=== PATIENT | female | born 2005 | race Caucasian/White ===

== ENCOUNTER 2023-07-11 12:20 | Outpatient (OUT) | payer OTHER, SELFPAY ==
--- NOTE | 2023-07-11 12:50 | XR_ITS ---
The [address] [address] Patient Name: ARABELLA KNOTT MRN: [id number] date: 2005 Sex: F Assigned Patient Location: [facility] Current Patient Location: Accession/Order Number: [id number] Exam Date: 07/11/2023 12:40 Report Date: 07/13/2023 06:22 At the request of: JUAN F THRASHER Procedure: XR hip LT 2V w/ pelvis PROCEDURE: XR hip LT 2V w/ pelvis HISTORY: pain left hip M25.552, Generalized articular hypermobility COMPARISON: None. FINDINGS: BONES:No fracture, acute abnormality, or significant arthropathy. SOFT TISSUES:No visible soft tissue swelling. EFFUSION:None visible. OTHER: Negative. XR/XR hip LT 2V w/ pelvis IMPRESSION: 1. No acute bone abnormality or appreciable degenerative changes. Electronically authenticated by: SANDRA ROSSI Date: 07/13/2023 06:22
== END 2023-07-11 12:21 | disposition home or self-care (01) ==
LOC: RAD 12:27
PROVIDERS: PCP Family Medicine; Visit Provider Nurse Practitioner Family
DX: M25.552 Pain in left hip (principal); M24.80 Other specific joint derangements of unspecified joint, not elsewhere classified
CPT/HCPCS: 73502

== ENCOUNTER 2023-07-19 16:56 | Outpatient (RCR) | payer OTHER, SELFPAY | END 2023-07-20 09:27 | disposition home or self-care (01) | LOC: PT 16:56 | PROVIDERS: PCP Family Medicine; Visit Provider Nurse Practitioner Family | DX: M24.80 Other specific joint derangements of unspecified joint, not elsewhere classified (principal); M25.552 Pain in left hip | CPT/HCPCS: 97162 ==

== ENCOUNTER 2023-11-15 09:35 | Outpatient (OUT) | payer OTHER, SELFPAY ==
--- OUTSIDE RECORDS SUMMARY | 2023-11-15 09:43 | XMS_ITS | CCD ---
Author Organization [facility] Care Team Providers Care Press Reader Name Role Phone Melanie Major Unavailable Allyssa De Guzman Unavailable Allyssa De Guzman Unavailable Unavailable Unavailable DR ALLYSSA DE GUZMAN Attending Unavailable DODGE, DR TATE Valerio Consulting Unavailable DE GUZMAN, DR ALLYSSA Hernandez Primary Care Unavailable DE GUZMAN, DR ALLYSSA Hernandez Admitting Unavailable DE GUZMAN, DR ALLYSSA Hernandez Consulting Unavailable MAURILIO JAMISON Attending Unavailable MAURILIO JAMISON Admitting Unavailable DE GUZMAN, DR ALLYSSA Hernandez Primary Care Unavailable SHAHEEN, MAURILIO Admitting Unavailable ZIEBER, DR SANDRA Stephens Consulting Unavailable DE GUZMAN, DR ALLYSSA Hernandez Primary Care Unavailable MAURILIO JAMISON Attending Unavailable MUARILIO JAMISON Consulting Unavailable DE GUZMAN, DR ALLYSSA Hernandez Attending Unavailable DE GUZMAN, DR ALLYSSA Hernandez Consulting Unavailable DE GUZMAN, DR ALLYSSA Hernandez Primary Care Unavailable DE GUZMAN, DR ALLYSSA Hernandez Admitting Unavailable MISC, DR ALEXIS Admitting Unavailable DE GUZMAN, DR ALLYSSA Hernandez Primary Care Unavailable MISC, DR ALEXIS Attending Unavailable MISC, DR ALEXIS Consulting Unavailable MD Allyssa De Guzman Primary Care Provider [phone] MD Edin Michaels Attending Provider MD Kylie Marc Referring Provider Edin Michaels Admitting Unavailable Edin Michaels Attending Unavailable Kylie Marc Referring Unavailable Allyssa De Guzman Primary Care Unavailable Monico, Dr. Espinal Attending Unavaila mehrdad De Guzman, Dr. Allyssa Taylor Primary Care UnaMD EDIN Romero Attending Unavailable Margarita, Dr. Allyssa Taylor Primary Care MD EDIN Barrera Referring Unavailable MD EDIN MICHAELS Referring Unavailable Margarita, Dr. Allyssa Taylor Primary Care MD EDIN Barrera Attending Unavailable MD EDIN MICHAELS Referring Unavailable MD EDIN MICHAELS Attending Unavailable Margarita, Dr. Allyssa Taylor Primary Care MD EDIN Barrera Referring Unavailable MD EDIN MICHAELS Attending Unavailable Margarita, Dr. Allyssa Taylor Primary Care MD EDIN Barrera Referring Unavailable De Guzman, Dr. Allyssa Talyor Primary Care MD EDIN Barrera Attending Unavailable Allyssa De Guzman MD Primary Care Provider Unavailable Allyssa De Guzman MD Primary Care Provider Audra Fabian MD Unavailable Edin Michaels MD Unavailable GIULIANO BAUMANN Attending Unavailable XAVIER HOOVER Attending Unavailable XAVIER HOOVER Referring Unavailable Allyssa De Guzman MD Primary Care Provider Audra Fabian MD Unavailable AUDRA FABIAN Attending Unavailable ALLYSSA DE GUZMAN Primary Care Unavailable AUDRA FABIAN Referring Unavailable ALLYSSA DE GUZAMN Primary Care Unavailable AUDRA FABIAN Attending Unavailable AUDRA FABIAN Referring Unavailable ALLYSSA DE GUZMAN Primary Care Unavailable AUDRA FABIAN Attending Unavailable ALLYSSA DE GUZMAN Primary Care Unavailable Allergies Allergy Classification Reported Allergen(s) Allergy Type Date of Onset Reaction(s) Facility (6 sources) cariprazine; Translations: [CARIPRAZINE] Drug Allergy 03-06-2023 Other [facility] Medications Current Medications Medication Drug Class(es) Dates Sig (Normalized) Sig (Original) acebutolol 200 mg oral capsule (20 sources) beta-Adrenergic Frank Start: 03-06-2023 End: 03-05-2024 take 1 capsule by mouth twice daily acebutolol (Sectral) 200 mg capsule Indications: Essential hypertension Take 1 capsule (200 mg) by mouth 2 times a day. 180 capsule 3 03/06/2023 03/05/2024 Active Start: 09-30-2022 take 1 capsule by [facility] once daily Acebutolol HCl - 200 MG Oral Capsule TAKE 1 CAPSULE EVERY 12 HOURS DAILY. Quantity: 60 Refills: 11 Ordered: 30-Sep-2022 Edin Michaels MD Start : 30-Sep-2022 Active new mg Start: 06-06-2022 take 400 mg by mouth twice daily Acebutolol Active 400 MG PO Twice daily August 17, 2022 12:00am take 1 capsule by mo [facility] every twenty-four hours Acebutolol HCl 400 MG 1 capsule Orally Once a day Active End: 03-06-2023 acebutolol (Sectral) 400 mg capsule Take 200 mg by mouth once daily. 0 03/06/2023 Discontinued (Therapy completed) 24 hr amphetamine aspartate 3.75 mg / amphetamine sulfate 3.75 mg / dextroamphetamine saccharate 3.75 mg / dextroamphetamine sulfate 3.75 mg extended release oral capsule (20 sources) Central Nervous System Stimulant Start: 08-17-2022 take 1 tablet by mouth once daily Dextroamphetamine-Amphetamine (Adderall) 15 mg Tablet Active 15 MG PO Daily August 17, 2022 12:00am Start: 05-09-2022 take 1 capsule by [facility] every twenty-four hours Adderall XR 15 MG 1 capsule in the morning Orally Once a day for 30 days Sep, Active atomoxetine 40 mg oral capsule (3 sources) Norepinephrine Reuptake Inhibitor Start: 06-22-2022 take 1 capsule by mouth every twenty-four hours Strattera 40 MG 1 capsule in the morning Orally Once a day for 30 days Jun, Active cefdinir 300 mg oral capsule (3 sources) Cephalosporin Antibacterial Start: 06-23-2022 Cefdinir 300 MG as directed Orally bid for 7 days Jun, Active hydrOXYzine pamoate 25 mg oral capsule (2 sources) Antihistamine take 1 capsule by mouth every twenty-four hours hydrOXYzine Pamoate 25 MG 1 capsule at bedtime as needed Orally Once a day as needed Active lamoTRIgine 25 mg oral tablet (2 sources) Mood Stabilizer, Anti-epileptic Agent take 1 tablet by mouth twice daily lamoTRIgine 25 MG 1 tablet Orally twice daily Active lisdexamfetamine dimesylate 30 mg oral capsule (4 sources) Central Nervous System Stimulant Start: 04-17-2023 Vyvanse 30 mg capsule Take 1 capsule (30 mg) by mouth if needed. 04/17/2023 Active Start: 12-09-2022 take 1 capsule by mo [facility] every twenty-four hours Vyvanse 30 MG 1 capsule in the morning Orally Once a day for 30 days Dec, Active Magnesium (3 sources) Magnesium 400 MG as directed Orally Active midodrine hydrochloride 10 mg oral tablet (10 sources) alpha-Adrenergic Agonist Start: 08-18-2023 End: 08-12-2024 take 1 tablet by mouth three times daily midodrine (Proamatine) 10 mg tablet Indications: Orthostatic hypotension Take 1 tablet (10 mg) by mouth 3 times a day. 270 tablet 3 08/18/2023 08/12/2024 Active Start: 05-05-2023 End: 05-04-2024 take 1 tablet by mouth three times daily midodrine (Proamatine) 5 mg tablet Indications: Orthostatic hypotension Take 1 tablet (5 mg) by mouth 3 times a day. 270 tablet 3 05/05/2023 08/18/2023 Discontinued (Therapy completed) Start: 03-06-2023 End: 03-05-2024 take 1 tablet by mouth three times daily midodrine (Proamatine) 2.5 mg tablet Indications: Orthostatic hypotension Take 1 tablet (2.5 mg) by mouth 3 times a day. 270 tablet 3 03/06/2023 05/05/2023 Discontinued (Reorder) Start: 09-12-2022 take 1 tablet by [facility] every twelve hours Midodrine HCl 5 MG 1 tablet Orally Twice a day for 30 days Sep, Active sodium chloride 1000 mg oral tablet (1 source) Start: 08-18-2023 End: 08-17-2024 take 0.5 tablet by mouth twice daily sodium chloride 1,000 mg tablet Indications: Orthostatic hypotension Take 0.5 tablets (0.5 g) by mouth 2 times a day. 90 tablet 3 08/18/2023 08/17/2024 Active Completed/Discontinued Medications Medication Drug Class(es) Dates Sig (Normalized) Sig (Original) amLODIPine 5 mg oral tablet (6 sources) Dihydropyridine Calcium Channel Frank take 1 tablet by mouth once daily amLODIPine Besylate 5 mg TAKE ONE TABLET BY MOUTH ONCE DAILY for 30 Not-Taking amoxicillin 875 mg / clavulanate 125 mg oral tablet (6 sources) Penicillin-class Antibacterial Start: 04-18-2022 take 1 tablet by mouth every twelve hours Amoxicillin-Pot Clavulanate 875-125 MG 1 tablet Orally every 12 hrs for 10 day(s) Apr, Not-Taking busPIRone hydrochloride 5 mg oral tablet (4 sources) Start: 03-22-2023 End: 08-18-2023 take 1 tablet by mouth once daily busPIRone (Buspar) 5 mg tablet Take 1 tablet (5 mg) by mouth once daily. 03/22/2023 08/18/2023 Discontinued (Med List Cleanup) take 1 tablet by edmund th every twelve hours busPIRone HCl 5 MG 1 tablet Orally Twice a day Active escitalopram 5 mg oral tablet (2 sources) Serotonin Reuptake Inhibitor Start: 03-22-2023 End: 08-18-2023 take 1 tablet by mouth once daily escitalopram (Lexapro) 5 mg tablet Take 1 tablet (5 mg) by mouth once daily. 03/22/2023 08/18/2023 Discontinued (Med List Cleanup) losartan potassium 25 mg oral tablet (2 sources) Angiotensin 2 Receptor Frank Start: 06-06-2022 take 1 tablet by mouth once daily Losartan Potassium 25 MG Oral Tablet TAKE 1 TABLET DAILY. Quantity: 90 Refills: 0 Ordered: 06-Jun-2022 Edin Michaels MD Start : 06-Jun-2022 Active new start/ stop Amlodipine magnesium oxide 400 mg oral tablet (13 sources) Start: 12-22-2022 End: 08-18-2023 take 1 tablet by mouth once daily magnesium oxide (Mag-Ox) 400 mg (241.3 mg magnesium) tablet Take 1 tablet (400 mg) by mouth once daily. 12/22/2022 08/18/2023 Discontinued (Med List Cleanup) Start: 07-11-2022 take 1 tablet by edmund th once daily Magnesium Oxide 400 MG Oral Tablet TAKE 1 TABLET DAILY. Quantity: 90 Refills: 3 Ordered: 11-Jul-2022 Edin Michaels MD Start : 11-Jul-2022 Active meloxicam 15 mg oral tablet (20 sources) Nonsteroidal Anti-inflammatory Drug Start: 03-24-2022 End: 08-18-2023 take 1 tablet by mouth once daily meloxicam (Mobic) 15 mg tablet Take 1 tablet (15 mg) by mouth once daily. 03/24/2022 08/18/2023 Discontinued (Med List Cleanup) 24 hr metoprolol succinate 50 mg extended release oral tablet (12 sources) beta-Adrenergic Frnak take 1 tablet by mouth every twenty-four hours Toprol XL 50 MG 1 tablet Orally Once a day Not-Taking predniSONE 20 mg oral tablet (7 sources) Start: 11-18-2021 take 1 tablet by mouth three times daily, then take 1 tablet by mouth twice daily, then take 1 tablet by mouth once daily, then take 1 tablet by mouth every other day predniSONE 20 MG 1 tablet Orally as directed for 10 day(s) 1 tablet p.o. 3 times daily x3 days, 1 tablet p.o. twice daily x3 days, 1 tablet p.o. daily x3 days. 1 tablet every other day x3 days. Nov, Not-Taking spironolactone 25 mg oral tablet (20 sources) Aldosterone Antagonist Start: 06-06-2022 End: 05-05-2023 take 1 tablet by mouth once daily spironolactone (Aldactone) 25 mg tablet Take 1 tablet (25 mg) by mouth once daily. 0 08/29/2022 05/05/2023 Discontinued (Therapy completed) Problems Active Problems Problem Classification Problem Date Documented Date Episodic/Chronic Abdominal pain (14 sources) Left upper quadrant pain; Translations: [Abdominal pain, left upper quadrant] Episodic Anxiety disorders (8 sources) Mixed anxiety and depressive disorder; Translations: [Other specified anxiety disorders] Onset: 04-12-2022 03-28-2023 Chronic Attention-deficit, conduct, and disruptive behavior disorders (8 sources) Attention deficit hyperactivity disorder, predominantly inattentive type; Translations: [Attention-deficit hyperactivity disorder, predominantly inattentive type] Onset: 05-05-2023 05-05-2023 Chronic Attention-deficit, conduct, and disruptive behavior disorders (3 sources) Attention-deficit hyperactivity disorder, predominantly inattentive type Chronic Conditions associated with dizziness or vertigo (14 sources) Postural dizziness; Translations: [Dizziness and giddiness] Episodic Diseases of mouth; excluding dental (14 sources) Aphthous ulcer of mouth; Translations: [Oral aphthae] Episodic Essential hypertension (20 sources) Essential hypertension; Translations: [Unspecified essential hypertension] Onset: 06-20-2022 Chronic Menstrual disorders (14 sources) Abnormal menstrual cycle; Translations: [Unspecified disorders of menstruation and other abnormal bleeding from female genital tract] Chronic Mood disorders (10 sources) Mild recurrent major depression; Translations: [Major depressive disorder, recurrent, mild] Onset: 03-06-2023 03-06-2023 Chronic Nervous system congenital anomalies (4 sources) Disorder of autonomic nervous system; 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]] Chronic Nutritional deficiencies (14 sources) Vitamin D deficiency; Translations: [Unspecified vitamin D deficiency] Chronic Other aftercare (13 sources) Treatment changed; Translations: [Long-term (current) use of other medications] Episodic Other circulatory disease (5 sources) Orthostatic hypotension; Translations: [Orthostatic hypotension] Onset: 08-18-2023 03-06-2023 Episodic Other circulatory disease (1 source) Orthostatic hypotension; Translations: [Orthostatic hypotension] Onset: 08-18-2023 Episodic Other nervous system disorders (14 sources) Disturbance of attention; Translations: [Attention or concentration deficit] Chronic Other nervous system disorders (3 sources) Chronotropic incompetence; Translations: [Unspecified disorder of autonomic nervous system] Chronic Other non-traumatic joint disorders (1 source) Pain in right hip Episodic Other nutritional; endocrine; and metabolic disorders (16 sources) Body mass index 40+ - severely obese; Translations: [Morbid obesity] Onset: 08-18-2023 08-18-2023 Chronic Other nutritional; endocrine; and metabolic disorders (2 sources) Morbid (severe) obesity due to excess calories; Translations: [Morbid (severe) obesity due to excess calories (Multi)] Onset: 08-18-2023 Chronic Other nutritional; endocrine; and metabolic disorders (5 sources) Childhood obesity; Translations: [Body Mass Index, pediatric, greater than or equal to 95th percentile for age] Episodic Other skin disorders (14 sources) Acanthosis nigricans; Translations: [Acquired acanthosis nigricans] Episodic Other upper respiratory infections (2 sources) Acute maxillary sinusitis, unspecified; Translations: [Acute pansinusitis, unspecified] Episodic Otitis media and related conditions (14 sources) Otitis media; Translations: [Unspecified otitis media] Episodic Pulmonary heart disease (5 sources) Pulmonary hypertension, unspecified; Translations: [Mild pulmonary hypertension] Chronic Residual codes; unclassified (14 sources) Non-smoker; Translations: [Other specified conditions influencing health status] Episodic Residual codes; unclassified (20 sources) History of clinical finding in subject; Translations: [Personal history of unspecified disease] Resolved: 06-06-2022 Episodic Residual codes; unclassified (6 sources) Insomnia; Translations: [Insomnia, unspecified] Episodic Residual codes; unclassified (2 sources) Never smoked tobacco; Translations: [Other specified health status] Onset: 08-18-2023 08-18-2023 Episodic Residual codes; unclassified (2 sources) Other specified health status; Translations: [Other specified health status] Onset: 08-18-2023 Episodic Transient cerebral ischemia (2 sources) Transient cerebral ischemia; Translations: [Transient cerebral ischemic attack, unspecified] Onset: 08-29-2017 03-28-2023 Chronic Viral infection (9 sources) Disease caused by 2019-nCoV; Translations: [Other specified viral infection] Episodic Past or Other Problems Problem Classification Problem Date Documented Da te Episodic/Chronic Administrative/social admission (12 sources) Follow-up status; Translations: [Other specified counseling] Onset: 05-05-2023 05-05-2023 Episodic Allergic reactions (1 source) Urticaria, unspecified Onset: 11-18-2021 Resolved: 11-18-2021 Episodic Cardiac dysrhythmias (20 sources) Sinus tachycardia; Translations: [Other specified cardiac dysrhythmias] Onset: 06-27-2022 03-06-2023 Episodic Other connective tissue disease (4 sources) Anterior tibial syndrome, right leg; Translations: [ANTERIOR TIBIAL SYNDROME RIGHT LEG] Onset: 01-07-2022 Episodic Other connective tissue disease (4 sources) Pain in right foot; Translations: [PAIN IN RIGHT FOOT] Onset: 12-28-2021 Episodic Other lower respiratory disease (20 sources) Dyspnea; Translations: [Shortness of breath] Onset: 03-06-2023 03-06-2023 Episodic Other lower respiratory disease (1 source) Shortness of breath; Translations: [Shortness of breath] Onset: 03-06-2023 Episodic Other non-traumatic joint disorders (5 sources) Pain in right ankle and joints of right foot; Translations: [PAIN IN RIGHT ANKLE] Onset: 12-21-2021 Episodic Syncope (20 sources) Near syncope; Translations: [Syncope and collapse] Onset: 03-25-2022 Resolved: 03-06-2023 Episodic Unclassified (14 sources) Regurgitation; Translations: [Regurgitation] Unclassified (3 sources) Onset: 03-06-2023 03-06-2023 Results Test Name Value Interpretation Reference Range Facility ECG 12 Leadon 08-18-2023 See [facility] Work Phone: ECG 12 [place]on 05-05-2023 [facility] Work Phone: See [facility] Work Phone: ECG 12 lead (Clinic Performe d)on 05-05-2023 See [facility] Work Phone: ECG 12 lead (Clinic Performe d)on 03-06-2023 See [facility] Work Phone: XR KNEE 4+ VIEWS RIGHTon XR KNEE 4+ VIEWS RIGHT EXAM: XR KNEE 4+ VIEWS RIGHT HISTORY: right knee pain after a fall on concrete with suspected lateral patellar dislocation initially TECHNIQUE: 4 views of the knee obtained. COMPARISON: None available FINDINGS: No acute fracture or dislocation. Joint spaces of the knee are maintained. No knee joint effusion. Soft tissues are within normal limits. IMPRESSION: No acute osseous abnormality. ELECTRONICALLY SIGNED BY: Scot Davalos DO Normal Not Available Tobacco Screening.on 023 Fall risk assessment a) No falls within the last year [facility] 250 DO Work Phone: Tobacco use status [facility] b) No [facility] 250 DO Work Phone: [place] tilt table teston 023 CA tilt table test [facility] [address] [place] [address] [place] [address] Cardiology Report Signed Patient: Arabella Knott MR#: [id number] : 2005 Acct:[id number] Age/Sex: 17 / F ADM Date: 08/17/22 Loc: Room: [facility] Attending Dr: Edin Michaels MD Copies to: Kylie Marc MD Ordering Provider: Kylie Marc MD Date of Service: 08/17/22 CA/CA tilt table test: syncope/near syncope Head-up tilt table test. INDICATION: Recurrent episode of lightheadedness and dizziness. PROCEDURE: The patient underwent standard head-up tilt table test. She received 250 mL of normal saline. Continuous blood pressure, O2 saturation and heart rate monitoring was established. The patient tilted to the upright position for 20 minutes, during which she demonstrated appropriate and physiologic hemodynamic response to tilt maneuver. The patient was given nitroglycerin and within 4 minutes, the patient developed prodromal symptoms, got lightheaded, dizzy. This was associated with significant drop in blood pressure and inappropriate slowing of the heart, consistent with a classic response consistent with neurocardiogenic syncope or vasodepressor syncope. The patient was placed in the supine position with improvement of his symptoms. CONCLUSION: Positive tilt table test for hemodynamic parameter consistent with vasodepressor syncope or neurocardiogenic syncope. RECOMMENDATIONS: I discussed with the patient and her mother treatment options including increasing the fluid intake to 4-5 L per day, increase salt to 30 g per day, consider wearing compression stocking, avoid hot and humid weather. In addition, she was counseled regarding career choices. The patient was advised to followup with her primary data conversion operator. Transcribed By: SCARLETT 08/17/22 1544 Dictated By: Kylie Marc MD 08/17/22 1146 Signed By: 08/18/22 1719 [facility] No Panel Informationon 08-17 [facility] [employer] 250 DO Work Phone: Cardiac Stress Teston 2022 Cardiac Stress Test Please click on the link to view the study images [facility] Work Phone: Cardiac Stress Test [facility] [employer] 250 DO Work Phone: Office Visit (Cardiology)on 07-11-2022 Follow-up visit Diagnoses/Problems Assessed Morbid obesity with BMI of 40.0-44.9, adult (278.01,V85.41) (E66.01,Z68.41) Non-smoker (V49.89) (Z78.9) Orthostatic dizziness (780.4) (R42) Palpitation (785.1) (R00.2) Shortness of breath (786.05) (R06.02) Primary hypertension (401.9) (I10) COVID-19 (079.89) (U07.1) Medication course changed (V58.69) (Z79.899) Orders COVID-19, Orthostatic dizziness, Palpitation, Shortness of breath Cardiac Stress Test; Status:Hold For - Scheduling; Requested for:11Jul2022; Morbid obesity with BMI of 40.0-44.9, adult Healthy Weight Tips; Status:Complete; Done: 11Jul2022 Some eating tips that can help you lose weight.; Status:Complete; Done: [id number] Orthostatic dizziness, Palpitation, Shortness of breath Tilt Table; Status:Hold For - Scheduling; Requested for:[id number]; Primary hypertension Start: Magnesium Oxide 400 MG Oral Tablet; TAKE 1 TABLET DAILY SocHx: Non-smoker Tobacco Use Screening; Status:Complete; Done: 11Jul2022 Patient Instructions Please bring all medicines, vitamins, and herbal supplements with you when you come to the office. Prescriptions will not be filled unless you are compliant with your follow up appointments or have a follow up appointment scheduled as per instruction of your physician. Refills should be requested at the time of your visit. Follow up after testing completed Chief Complaint ARABELLA KNOTT is being seen for test results. History of Present Illness FU from 06/06/22 Accompanied by mother to the office. After her last visit with us she says she had COVID a second time, much milder than before, characterized by muscle aches and a sinus congestion and head cold type symptoms. Feels that the medications are not helping her at all and that her heart rate is all over the place. She was diagnosed with COVID on June 23. Did not require any hospitalization. She says that when she stands up her heart rate increases and her blood pressure drops we checked orthostatics today and she is not orthostatic in the office. Results of the treadmill stress test and Holter monitor was reviewed. Maximum heart rate on the Holter monitor was 118 bpm. Laboratory data from June 20, 2022 showed sodium of 140 potassium 4.1 GFR greater than 60 Free T4 and TSH were normal Free T3 was lower than normal 0.69. She is now taking her attention deficiency medications only on an as-needed basis. Results of her sleep study was reviewed, she does not have obstructive sleep apnea. Assessment: 1. Hypertension 2. Symptoms concerning for KRISHNAMURTHY ,ie Postural orthostatic tachycardia syndrome 3. Attention deficit disorder on Adderall with about 50 pound weight loss over the past year 4. Increased BMI 5. Palpitations 6. Shortness of breath 7. Echocardiogram March 2022-LVEF 60% normal diastolic function left atrial volume index 50 mL/m RV systolic pressure 36 mmHg left atrial diameter 3.7 cm 8. Patient reports menstrual irregularity-amenorrhea, for 4 years, has decided not to seek medical attention for this 9. Sleep study July 2020-did not meet criteria for obstructive sleep apnea syndrome 10. Holter monitor June 2022 predominant rhythm was sinus, minimum sinus rate 51 beats occurring at 6:11 AM, average sinus rate 68 bpm and maximum sinus rate 118 bpm, occurring at 8:47 PM. Rare isolated ventricular premature beats and rare isolated supraventricular premature beats were noted. She had one report of palpitations and dizziness and nausea which corresponded to normal sinus rhythm at 90 bpm. Recommendations: 1. Start focusing on regular aerobic activity with breaks as needed 2. Proceed with tilt table test 3. Magnesium oxide 400 mg p.o. B[place]ak that he may reduce to 400 mg daily records 4. Follow-up after testing sooner if interval problems arise 5. Treadmill stress test without perfusion, assess heart rate and blood pressure response to activity and also functional capacity. 6. Follow-up after testing. Surgical History Problems History of Ear Pressure Equalization Tube, Insertion, Bilaterally History of Tonsillectomy With Adenoidectomy Past Medical History Problems History of being hospitalized (V13.9) (Z92.89) History of sinus tachycardia (V12.59) (Z86.79) Resolved Date: 06 Jun 2022 Current Meds Medication NameInstruction Acebutolol HCl - 400 MG Oral CapsuleTake 1 capsule twice daily Amphetamine-Dextroamphet ER 15 MG Oral Capsule Extended Release 24 HourTAKE 1 CAPSULE DAILY IN THE MORNING. Meloxicam 15 MG Oral TabletTAKE 1 TABLET DAILY NEEDED. Spironolactone 25 MG Oral TabletTake 1 tablet daily Patient did not bring medication list or bottles. Updated verbally with patient Allergies Medication No Known Drug Allergies Recorded By: Mayra Wiseman; 01/29/2016 11:48:49 AM Social History Problems Caregiver smokes outdoors only (V15.89) (Z77.22) in the family, father Lives with grandparent(s) Lives with mother (single parent) No alco (more content not included)... Normal [employer] Tobacco Screening.on 023 Tobacco use status CPHS b) No -[facility] 250 DO Work Phone: FREE T3on 06-20-2022 FREE T3 2.69 pg/mlL Critically low 2.91-4.70 [facility] Comment on above: Performed By: #### F T3, BMP, TSH #### [facility] [address] [place] [address] Dr. Kimberly oMody FREE T4on 06-20-2022 Free T4 [Mass/Vol] 0.92 ng/dL Normal 0.78-1.34 [facility] Comment on above: Performed By: #### F T4 #### [facility] [address] [address] [address] Kimberly Moody PROF CHEM 8 (BAS METB)on Anion gap [Moles/Vol] 10.5 mmol/L Normal [facility] Comment on above: Performed By: #### F T3, BMP, TSH #### [facility] [address] [place] [address] Dr. Kimberly Moody Calcium [Mass/Vol] 8.6 mg/dL Normal 8.5-10.1 [facility] Comment on above: Performed By: #### F T3, BMP, TSH #### [facility] [address] [address] [address] Kimberly Moody Chloride [Moles/Vol] 105 mmol/L Normal 98-107 [facility] Comment on above: Performed By: #### F T3, BMP, TSH #### [facility] [address] [place] [address] Dr. Kimberly Moody CO2 [Moles/Vol] 28.6 mmol/L Normal 21.0-32.[address] [facility] Comment on above: Performed By: #### F T3, BMP, TSH #### [facility] [address] [address] [address] Kimberly Moody Creatinine [Mass/Vol] 0.60 mg/dL Normal 0.55-1.02 [facility] Comment on above: Performed By: #### F T3, BMP, TSH #### [facility] [address] [address] [address] Kimberly Moody EGFR-AF SLOVENIAN >60 Normal >=[address] [facility] Comment on above: Performed By: #### F T3, BMP, TSH #### [facility] [address] [address] [address] Kimberly Moody EGFR-NON AF SLOVENIAN >60 Normal >=60 [facility] Comment on above: Performed By: #### F T3, BMP, TSH #### [facility] [address] [address] [address] Kimberly Moody Glucose [Mass/Vol] 89 mg/dL Normal 74-106 [facility] Comment on above: Performed By: #### F T3, BMP, TSH #### [facility] [address] [address] [address] Kimberly Moody Potassium [Moles/Vol] 4.1 mmol/L Normal 3.5-5.1 [facility] Comment on above: Performed By: #### F T3, BMP, TSH #### [facility] [address] [address] [address] Kimberly Moody Sodium [Moles/Vol] 140 mmol/L Normal 136-145 [facility] Comment on above: Performed By: #### F T3, BMP, TSH #### [facility] [address] [address] [address] Kimberly Moody Urea nitrogen [Mass/Vol] 9.0 mg/dL Normal 6.4-19.3 [facility] Comment on above: Performed By: #### F T3, BMP, TSH #### [facility] [address] [address] [address] Kimberly Moody Urea nitrogen/Creatinin e [Mass ratio] 15.0 mg/mg Normal [facility] Comment on above: Performed By: #### F T3, BMP, TSH #### [facility] [address] [address] [address] Kimberly Moody TSHon 06-20-2022 TSH 2.839 uIU/mL Normal 0.516-4.130 [facility] Comment on above: Performed By: #### F T3, BMP, TSH #### [facility] [id number] Kimberly Moody Cardiovasc Arrhythmia Result son 06-15-2022 Cardiovasc Arrhythmia Results Reason For Visit Reason for Visit: Holter Monitor: ARABELLA is here for the application of a 24 hour Holter monitor. Ordering Physician: Dr. Edin Michaels MD Diagnosis: Near syncope/ Palpitations NO equipment agreement signed. ARABELLA understands monitor is to be returned on: 06/16/2022 Monitor number [id number] applied. Holter monitor returned and downloaded Holter monitor printed and placed on Dr. Edin Michaels MD desk to dictate. . Procedure 24-hour Holter monitor is being performed in patient with symptoms concerning for postural orthostatic tachycardia. Predominant rhythm was sinus, minimum sinus rate 51 bpm occurring at 6:11 AM, average sinus rate 68 bpm and maximum sinus rate 118 bpm occurring at 8:47 PM. Total of 5 ventricular ectopic beats and 14 supraventricular ectopic beats were noted. Longest R to R interval was 1.4 seconds and occurred at 10:59 PM. Patient reported palpitations dizziness and nausea at 2:44 PM while she was shopping, corresponding rhythm was sinus at 90 bpm. This Holter monitor is within normal limits. Diagnosis/Problems Assessed Palpitation (785.1) (R00.2) Future Appointments Date/TimeProviderSpecialt ySite 06/27/2022 01:00 PMEdin Michaels, [id number] [facility] [address] 250 DO Signatures Electronically signed by : Malathi Read L.P.N.; Jun 17 2022 10:51AM EST (Author) Electronically signed by : Edin Michaels MD; Jun 19 2022 10:35PM EST (Author) Normal [facility] (Cardiology)on 06-06-2022 Follow-up visit Diagnoses/Problems Assessed History of sinus tachycardia (V12.59) (Z86.79) Primary hypertension (401.9) (I10) Morbid obesity with BMI of 40.0-44.9, adult (278.01,V85.41) (E66.01,Z68.41) Shortness of breath (786.05) (R06.02) Orthostatic dizziness (780.4) (R42) Palpitation (785.1) (R00.2) Mild pulmonary hypertension (416.8) (I27.20) Abnormal menstrual cycle (626.9) (N92.6) Near syncope (780.2) (R55) Non-smoker (V49.89) (Z78.9) Attention deficit (799.51) (R41.840) Medication course changed (V58.69) (Z79.899) Orders Morbid obesity with BMI of 40.0-44.9, adult Healthy Weight Tips; Status:Complete; Done: 06Jun2022 Some eating tips that can help you lose weight.; Status:Complete; Done: 06Jun2022 Near syncope, Palpitation IO Holter Monitor up to 48 Hrs; Status:Active - Perform Order; Requested for:06Jun2022; Near syncope, Palpitation, Primary hypertension Start: Spironolactone 25 MG Oral Tablet (Aldactone); Take 1 tablet daily Basic Metabolic Panel; Status:Active; Requested for:13Jun2022; T3 - Free Triiodothyronine, Serum; Status:Active; Requested for:13Jun2022; T4 - Free Thyroxine, Serum; Status:Active; Requested for:13Jun2022; TSH - Thyroid Stimulating Hormone, Serum; Status:Active; Requested for:13Jun2022; Palpitation, Primary hypertension Start: Acebutolol HCl - 400 MG Oral Capsule; Take 1 capsule twice daily Start: Losartan Potassium 25 MG Oral Tablet; TAKE 1 TABLET DAILY IO EKG Electrocardiogram- 12 Lead; Status:Complete; Done: 06Jun2022 SocHx: Non-smoker Tobacco Use Screening; Status:Complete; Done: 06Jun2022 Unlinked Stop: amLODIPine Besylate 5 MG Oral Tablet Stop: Metoprolol Succinate ER 50 MG Oral Tablet Extended Release 24 Hour Patient Instructions Please bring all medicines, vitamins, and herbal supplements with you when you come to the office. Prescriptions will not be filled unless you are compliant with your follow up appointments or have a follow up appointment scheduled as per instruction of your physician. Refills should be requested at the time of your visit. Follow-up after testing completed Chief Complaint ARABELLA KNOTT is being seen for SELF REFERRAL. History of Present Illness 17-year-old female is accompanied by her mother to the office. She is here to discuss palpitations and marked elevation in heart rate. She reports that every time she changes posture her heart rate increases drastically. She reports that the heart rate will go from 80s to 140s from sitting to standing. She has frequently felt lightheaded. She has a history of hypertension and is currently on amlodipine and metoprolol succinate. She also is on Adderall for attention deficit, on this medicine she reports 40 to 50 pound weight loss over the last year, her current BMI is 43. She has lost weight because of appetite suppression. Her last menstrual period was apparently 4 years ago and she reports that she is not , and she does not wish to have this investigated further. She works in healthcare keeping/cleaning, and her work is physically demanding, she does get palpitations and shortness of breath while she is at work. She describes her palpitations as a sensation that her heart is racing, and is jumping out of her chest. Her blood pressure is elevated in office, initially 160/118, with recheck blood pressure of 144/100. She did not take her blood pressure medications today, usually takes it in the afternoon. An echocardiogram from March 2022 reports left atrial volume index of 50 mL/m LVEF of 60% RV systolic pressure of 36 mmHg technically difficult study Laboratory data from September 2020 sodium 139 potassium 4 creatinine 0.76 TSH 2.95 total cholesterol 172 triglycerides 157 HDL 36 LDL 105 hemoglobin 13.5 hematocrit 39 platelets 345 Assessment: 1. Hypertension 2. Symptoms concerning for KRISHNAMURTHY ,ie Postural orthostatic tachycardia syndrome 3. Attention deficit disorder on Adderall with about 50 pound weight loss over the past year 4. Increased BMI 5. Palpitations 6. Shortness of breath 7. Echocardiogram March 2022-LVEF 60% normal diastolic function left atrial volume index 50 mL/m RV systolic pressure 36 mmHg left atrial diameter 3.7 cm 8. Patient reports menstrual irregularity-amenorrhea, for 4 years, has decided not to seek medical attention for this 9. Sleep study July 2020-did not meet criteria for obstructive sleep apnea syndrome Recommendations: 1. Comprehensive profile Free T4 TSH 2. Aldactone 25 mg daily 3. Discontinue metoprolol 4. Acebutolol 400 mg p.o. twice daily 5. Discontinue amlodipine 6. Tilt table test 7. Patient is planning on discontinuing the Adderall because it is not working for her. Defer this to primary 8. Losartan 25 mg p.o. daily As an after thought, I prefer to wait to start the losartan. Would start with the acebutolol and the Aldactone first. Patient to stay well-hydrated at all times, and to avoid prolonged standing and sudden changes in postu (more content not included)... Normal [employer] Tobacco Screening.on 023 Adult depression screening assessment No [facility] [employer] 250 DO Work Phone: Fall risk assessment a) No falls within the last year [facility] [employer] 250 DO Work Phone: Tobacco use status CPHS b) No [facility] 250 DO Work Phone: ECHOCARDIO M/2D COMPLETEon 1 05-26-2021 ECHOCARDIO M/2D COMPLETE Patient: ARABELLA KNOTT Exam Date: 03/25/2022 : 2005 Gender:F Ordering : DR ALLYSSA DE GUZMAN M.D. Admission #: [id number] Family : Order #: [id number] CLICK HERE TO VIEW EXAM ECHOCARDIOGRAM REPORT PROCEDURE: CARDIO PULMONARY ECHOCARDIO M/2D COMP INDICATIONS: Syncope and collapse, hypertension COMPARISON: None. DESCRIPTION: COMPLETE ECHOCARDIOGRAM Real-time transthoracic echocardiography with 2D, M-mode, spectral and color flow Doppler performed. QUALITY: Technically difficult due to patients condition. 65 260# BP 142/88 LEFT VENTRICLE: Normal chamber size. Normal left ventricular wall thickness. Systolic function is normal. LV EF: Normal left ventricular ejection fraction, (>55%). DIASTOLIC: Normal diastolic function. ATRIAL SEPTUM: LEFT ATRIUM: Normal chamber size. RIGHT ATRIUM: Normal chamber size. RIGHT VENTRICLE: Normal chamber size. Normal right ventricular systolic function. TRICUSPID VALVE: Normal mobility and thickness. No stenosis with trivial regurgitation. Doppler studies reveal mildly (35-45) elevated right sided pressures. RVSP 38 mmHg MITRAL VALVE: Normal mobility and thickness. No evidence of mitral valve stenosis. There is no mitral annular calcification. Trivial mitral regurgitation. AORTIC VALVE: Normal trileaflet appearance. No visible sclerosis. Normal leaflet mobility. No evidence of aortic valve stenosis. No aortic regurgitation. AORTIC ROOT: Normal diameter and appearance. PULMONIC VALVE: Normal thickness and mobility. No stenosis. Trivial regurgitation. PERICARDIUM: No evidence of pericardial effusion. IVC: Not well visualized. PLEURA: CONCLUSION: 1. Normal ventricular systolic function. LVEF is 60%. 2. Normal diastolic function. 3. No significant valvular dysfunction. 4. Mildly elevated right-sided pressures. 5. No pericardial effusion. 6. Technically difficult study with poor sound transmission. Adult Echocardiography Procedure Report Left Ventricle LVEDD (3.7 - 5.6 cm): 4.99 cm LVESD (2.2 - 4.0 cm): 3.84 cm LVIVS thickness (0.6 - 1.2 cm): 0.85 cm LVPW thickness (0.5 - 1.0 cm): 0.73 cm e': 0.17 m/s E - e': 6.15 LVOT Max Gradient: 4.90 mm[Hg], 4.53 mm[Hg] Peak Velocity (LVOT): 1.11 m/s, 1.06 m/s Mean Velocity (LVOT): 0.81 m/s, 0.78 m/s LVOT Diameter 2.19 cm Left Ventricular Ejection Fraction: 60 % Left Atrium LA Volume Index (2D A2C): 49.99 ml, 49.99 ml Left Atrium Systolic Dimension: 3.67 cm Mitral Valve MV E to A Ratio: 1.24 Mitral Valve A-Wave Peak Velocity: 0.83 m/s Mitral Valve E-Wave Peak Velocity: 1.03 m/s Right Ventricle Aorta AO Root Diam: 3.26 cm Aortic Valve AoV Area (Peak Jeff): 3.00 cm2, 3.06 cm2, 2.94 cm2 AoV Area (VTI): 2.95 cm2, 3.02 cm2, 2.89 cm2 Peak Velocity(Antegrade Flow): 1.37 m/s, 1.37 m/s Peak Gradient(Antegrade Flow): 7.48 mm[Hg], 7.48 mm[Hg] Mean Velocity(Antegrade Flow): 0.99 m/s, 0.99 m/s Mean Gradient(Antegrade Flow): 4.47 mm[Hg], 4.47 mm[Hg] Velocity Time Integral: 31.97 cm, 31.97 cm Tricuspid Valve Peak Velocity (Regurgitant Flow): 2.98 m/s Pulmonic Valve Mean Gradient: 2.50 mm[Hg] Mean Velocity: 0.74 m/s Peak Velocity: 1.01 m/s, 1.23 m/s Peak Gradient: 4.10 mm[Hg], 6.02 mm[Hg] Right Atrium Right Atrium Systolic Pressure: 36.18 ml, 36.18 ml Dictated by: Car Parham M.D. on 03/31/2022 at 15:04 Approved by: Car Parham M.D. on 03/31/2022 at 15:06 Normal [facility] AUD - Progress Noteson 08-27 AUD - Progress Notes Pt. referred for hearing evaluation by Allyssa De Guzman MD, accompanied by mother. Pt. reported bilateral ear pain at the time of testing, rating pain a 4 on the Horizontal pain Scale. Explained test results and recommendations to pt. and mother, and they stated an understanding. See AUD-Assessments for Report/Results. DX CODES: H92.03 otalgia bilateral H69.83 other specified disorders of the eustachian tube, bilateral H90.0 conductive hearing loss bilateral OAE results DPOAE RE #[id number] Pass 3018-7511 Hz LE #[id number] Pass 9682-7641 Hz TEOAE RE #[id number] Refer 1.2-3.5 kHz LE #[id number] Refer 1.2-3.5 kHz Normal [facility] Coding Summary.on 08-22-2018 Coding Summary. CODING DATE: 019 FINAL [facility] STATUS: PAYOR: Medicaid EA DESCRIPTION 0251 OTORHINOLARYNGOLOGIC FUNCTION TESTS ADMIT DX: REASON FOR VISIT DX: H92.03 Otalgia, bilateral FINAL DX: PRINCIPAL: H92.03 Otalgia, bilateral SECONDARY: H69.83 Other specified disorders of Eustachian tube, bilateral H90.0 Conductive hearing loss, bilateral PYMT PROC EAPG STAT DESCRIPTION DOCTOR NAME DATE NOTE: The code number assigned matches the documented diagnosis and / or procedure in the patient's chart. However, the narrative phrase printed from the coding software may appear abbreviated, or result in slightly different terminology. Coded By: Ying Caceres CphT Date Saved: 08/22/2018 01:28 pm [facility] Vital Signs Date Time Vital Sign Value Performing Clinician Facility 08-18-2023 11:31-0400 Body height 165.1 cm Audra Fabian MD Work Phone: [facility] 08-18-2023 11:31-0400 Body mass index (BMI) [Ratio] 48.59 kg/m2 Audra Fabian MD Work Phone: [facility] 08-18-2023 11:31-0400 Body weight 132.45 kg Audra Fabian MD Work Phone: [facility] 08-18-2023 11:31-0400 Diastolic blood pressure 78 mm[Hg] Audra Fabian MD Work Phone: [facility] 08-18-2023 11:31-0400 Heart rate 73 /min Audra Fabian MD Work Phone: [facility] 08-18-2023 11:31-0400 Systolic blood pressure 128 mm[Hg] Audra Fabian MD Work Phone: [facility] 05-05-2023 16:07-0500 Body height 165.1 cm Audra Fabian MD Work Phone: [facility] 05-05-2023 16:07-0500 Body mass index (BMI) [Ratio] 47.76 kg/m2 Audra Fabian MD Work Phone: [facility] 05-05-2023 16:07-0500 Body weight 130.18 kg Audra Fabian MD Work Phone: [facility] 05-05-2023 16:07-0500 Diastolic blood pressure 74 mm[Hg] Audra Fabian MD Work Phone: [facility] 05-05-2023 16:07-0500 Heart rate 64 /min Audra Fabian MD Work Phone: [facility] 05-05-2023 16:07-0500 Systolic blood pressure 126 mm[Hg] Audra Fabian MD Work Phone: [facility] 03-06-2023 12:20-0500 Body height 165.1 cm Audra Fabian MD Work Phone: [facility] 03-06-2023 12:20-0500 Body mass index (BMI) [Ratio] 47.93 kg/m2 Audra Fabian MD Work Phone: [facility] 03-06-2023 12:20-0500 Body weight 130.64 kg Audra Fabian MD Work Phone: [facility] 03-06-2023 12:20-0500 Diastolic blood pressure 84 mm[Hg] Audra Fabian MD Work Phone: [facility] 03-06-2023 12:20-0500 Heart rate 75 /min Audra Fabian MD Work Phone: [facility] 03-06-2023 12:20-0500 Systolic blood pressure 138 mm[Hg] Audra Fabian MD Work Phone: [facility] 12-09-2022 10:30-0400 Body weight 130.64 kg Allyssa De Guzman Other [employer] Other 12-09-2022 10:30-0400 Diastolic blood pressure 85 mm[Hg] Allyssa De Guzman Other [employer] Other 12-09-2022 10:30-0400 Systolic blood pressure 135 mm[Hg] Allyssa De Guzman Other [employer] Other 09-12-2022 10:15-0400 Body height 167.64 cm Allyssa De Guzman Other [employer] Other 09-12-2022 10:15-0400 Body mass index (BMI) [Ratio] 44.22 kg/m2 Allyssa De Guzman Other [employer] Other 09-12-2022 10:15-0400 Body weight 124.29 kg Allyssa De Guzman Other [employer] Other 09-12-2022 10:15-0400 Diastolic blood pressure 71 mm[Hg] Allyssa De Guzman Other [employer] Other 09-12-2022 10:15-0400 Systolic blood pressure 119 mm[Hg] Allyssa De Guzman Other [employer] Other 08-29-2022 11:17-0400 Diastolic blood pressure 90 mm[Hg] Allyssa De Guzman [facility] Phone[facility] [employer] 250 DO Work Phone: 08-29-2022 11:17-0400 Diastolic blood pressure 100 mm[Hg] Allyssa De Guzman Work Phone: [facility] [employer] 250 DO Work Phone: 08-29-2022 11:17-0400 Systolic blood pressure 122 mm[Hg] Allyssa De Guzman Work Phone: [facility] [employer] 250 DO Work Phone: 08-29-2022 11:17-0400 Systolic blood pressure 134 mm[Hg] Allyssa De Guzman Work Phone: [facility] 250 DO Work Phone: 08-29-2022 10:37-0400 Body height 165.1 cm Allyssa De Guzman Work Phone: [facility] 250 DO Work Phone: 08-29-2022 10:37-0400 Body mass index (BMI) [Ratio] 45.76 kg/m2 Allyssa De Guzman Work Phone: [facility] 250 DO Work Phone: 08-29-2022 10:37-0400 Body surface area Derived from formula 2.26 m2 Allyssa De Guzman Work Phone: [facility] 250 DO Work Phone: 08-29-2022 10:37-0400 Body weight 124.74 kg Allyssa De Guzman Work Phone: [facility] 250 DO Work Phone: 08-29-2022 10:37-0400 Diastolic blood pressure 82 mm[Hg] Allyssa De Guzman Work Phone: [facility] 250 DO Work Phone: 08-29-2022 10:37-0400 Heart rate 74 /min Allyssa De Guzman Work Phone: [facility] 250 DO Work Phone: 08-29-2022 10:37-0400 Systolic blood pressure 128 mm[Hg] Allyssa De Guzman Work Phone: [facility] 250 DO Work Phone: 08-29-2022 10:37-0400 99 1 Allyssa De Guzman Work Phone: [facility] 250 DO Work Phone: Comment on above: BMIPerc 2-20_WPerc 08-29-2022 10:37-0400 61 1 Allyssa De Guzman Work Phone: [facility] 250 DO Work Phone: Comment on above: 2-20_SPerc 08-17-2022 11:15-0400 Diastolic blood pressure 106 mm[Hg] MD Allyssa De Guzman Work Phone: [facility] 08-17-2022 11:15-0400 Heart rate 82 /min MD Allyssa De Guzman Work Phone: [facility] 08-17-2022 11:15-0400 Systolic blood pressure 158 mm[Hg] MD Allyssa De Guzman Work Phone: [facility] 08-17-2022 10:41-0400 Body height 165.1 cm MD Allyssa De Guzman Work Phone: [facility] 08-17-2022 10:41-0400 Body weight 113.39 kg MD Allyssa De Guzman Work Phone: [facility] 08-17-2022 10:30-0400 SaO2% (BldA) [Mass fraction] 99 % MD Allyssa De Guzman Work Phone: [facility] 07-11-2022 11:08-0400 Diastolic blood pressure 88 mm[Hg] Allyssa De Guzman Work Phone: [facility] 250 DO Work Phone: 07-11-2022 11:08-0400 Diastolic blood pressure 86 mm[Hg] Allyssa De Guzman Work Phone: [facility] 250 DO Work Phone: 07-11-2022 11:08-0400 Systolic blood pressure 130 mm[Hg] Allyssa De Guzman Work Phone: [facility] 250 DO Work Phone: 07-11-2022 11:08-0400 Systolic blood pressure 128 mm[Hg] Allyssa De Guzman Work Phone: [facility] 250 DO Work Phone: 07-11-2022 10:52-0400 Body height 165.1 cm Allyssa De Guzman Work Phone: [facility] 250 DO Work Phone: 07-11-2022 10:52-0400 Body mass index (BMI) [Ratio] 44.1 kg/m2 Allyssa De Guzman Work Phone: [facility] 250 DO Work Phone: 07-11-2022 10:52-0400 Body surface area Derived from formula 2.23 m2 Allyssa De Guzman Work Phone: [facility] 250 DO Work Phone: 07-11-2022 10:52-0400 Body weight 120.2 kg Allyssa De Guzman Work Phone: [facility] 250 DO Work Phone: 07-11-2022 10:52-0400 Diastolic blood pressure 98 mm[Hg] Allyssa De Guzman Work Phone: [facility] 250 DO Work Phone: 07-11-2022 10:52-0400 Heart rate 80 /min Allyssa De Guzman Work Phone: [facility] 250 DO Work Phone: 07-11-2022 10:52-0400 Systolic blood pressure 130 mm[Hg] Allyssa De Guzman Work Phone: [facility] 250 DO Work Phone: 07-11-2022 10:52-0400 61 1 Allyssa De Guzman Work Phone: [facility] 250 DO Work Phone: Comment on above: 2-20_SPerc 07-11-2022 10:52-0400 99 1 Allyssa De Guzman Work Phone: [facility] 250 DO Work Phone: Comment on above: 2-20_WPerc BMIPerc 06-23-2022 11:45-0400 Body height 167.64 cm Allyssa De Guzman Other [facility] [email or web address] Other 06-23-2022 11:45-0400 Body mass index (BMI) [Ratio] 41.96 kg/m2 Allyssa De Guzman Other [employer] Other 06-23-2022 11:45-0400 Body temperature 98.2 [degF] Allyssa De Guzman Other [employer] Other 06-23-2022 11:45-0400 Body weight 117.94 kg Allyssa De Guzman Other [employer] Other 06-23-2022 11:45-0400 Diastolic blood pressure 88 mm[Hg] Allyssa De Guzman Other [employer] Other 06-23-2022 11:45-0400 SaO2% (BldA) [Mass fraction] 98 % Allyssa De Guzman Other [employer] Other 06-23-2022 11:45-0400 Systolic blood pressure 130 mm[Hg] Allyssa De Guzman Other [employer] Other 06-06-2022 14:33-0500 Diastolic blood pressure 100 mm[Hg] Allyssa De Guzman Work Phone: [place] [employer] 250 DO Work Phone: 06-06-2022 14:33-0500 Diastolic blood pressure 110 mm[Hg] Allyssa De Guzman Work Phone: [place] [employer] 250 DO Work Phone: 06-06-2022 14:33-0500 Systolic blood pressure 140 mm[Hg] Allyssa De Guzman Work Phone: [place] [employer] 250 DO Work Phone: 06-06-2022 14:33-0500 Systolic blood pressure 160 mm[Hg] Allyssa De Guzman Work Phone: [place] [employer] 250 DO Work Phone: 06-06-2022 13:41-0500 Diastolic blood pressure 100 mm[Hg] Allyssa De Guzman Work Phone: [facility] 250 DO Work Phone: 06-06-2022 13:41-0500 Systolic blood pressure 144 mm[Hg] Allyssa De Guzman Work Phone: [facility] 250 DO Work Phone: 06-06-2022 11:38-0500 Diastolic blood pressure 110 mm[Hg] Allyssa De Guzman Work Phone: [facility] 250 DO Work Phone: 06-06-2022 11:38-0500 Systolic blood pressure 156 mm[Hg] Allyssa De Guzman Work Phone: [facility] 250 DO Work Phone: 06-06-2022 11:33-0500 Body height 165.1 cm Allyssa De Guzman Work Phone: [facility] 250 DO Work Phone: 06-06-2022 11:33-0500 Body mass index (BMI) [Ratio] 43.43 kg/m2 Allyssa De Guzman Work Phone: [facility] 250 DO Work Phone: 06-06-2022 11:33-0500 Body surface area Derived from formula 2.22 m2 Allyssa De Guzman Work Phone: [facility] 250 DO Work Phone: 06-06-2022 11:33-0500 Body weight 118.39 kg Allyssa De Guzman Work Phone: [facility] 250 DO Work Phone: 06-06-2022 11:33-0500 Diastolic blood pressure 118 mm[Hg] Allyssa De Guzman Work Phone: [facility] 250 DO Work Phone: 06-06-2022 11:33-0500 Heart rate 80 /min Allyssa De Guzman [facility] [employer] 250 DO Work Phone: 06-06-2022 11:33-0500 Systolic blood pressure 160 mm[Hg] Allyssa De Guzman [facility] [employer] 250 DO Work Phone: 06-06-2022 11:33-0500 61 1 Allyssa De Guzman Work Phone: [facility] [employer] 250 DO Work Phone: Comment on above: 2-20_SPerc 06-06-2022 11:33-0500 99 1 Allyssa De Guzman Work Phone: [facility] [employer] 250 DO Work Phone: Comment on above: 2-20_WPerc BMIPerc 04-18-2022 16:45-0500 Body height 167.64 cm Allyssa De Guzman Other [employer] Other 04-18-2022 16:45-0500 Body mass index (BMI) [Ratio] 45.19 kg/m2 Allyssa De Guzman Other [employer] Other 04-18-2022 16:45-0500 Body temperature 98.2 [degF] Allyssa De Guzman Other [employer] Other 04-18-2022 16:45-0500 Body weight 127.01 kg Allyssa De Guzman Other [employer] Other 04-18-2022 16:45-0500 Diastolic blood pressure 88 mm[Hg] Allyssa De Guzman Other [employer] Other 04-18-2022 16:45-0500 SaO2% (BldA) [Mass fraction] 97 % Allyssa De Guzman Other [employer] Other 04-18-2022 16:45-0500 Systolic blood pressure 146 mm[Hg] Allyssa De Guzman Other [employer] Other 11-18-2021 14:45-0400 Body height 167.64 cm Melanie Moriah Other [employer] Other 11-18-2021 14:45-0400 Body mass index (BMI) [Ratio] 46.64 kg/m2 Melanie Moriah Other [employer] Other 11-18-2021 14:45-0400 Body temperature 98.5 [degF] Melanie Moriah Other [employer] Other 11-18-2021 14:45-0400 Body weight 131.09 kg Melanie Moriah Other [employer] Other 11-18-2021 14:45-0400 Diastolic blood pressure 95 mm[Hg] Melanie Moriah Other [employer] Other 11-18-2021 14:45-0400 Respiratory rate 18 /min Melanie Moriah Other [employer] Other 11-18-2021 14:45-0400 SaO2% (BldA) [Mass fraction] 98 % Melanie Moriah Other [employer] Other 11-18-2021 14:45-0400 Systolic blood pressure 154 mm[Hg] Melanie Moriah Other [employer] Other Encounters Encounter Date Encounter Type Care Provider Facility Start: 08-18-2023 End: 08-18-2023 ambulatory [facility] Ambulatory Start: 08-18-2023 End: 08-18-2023 Office outpatient visit 40 minutes Audra Fabian MD Work Phone: [facility] Comment on above: Orthostatic hypotens ion (Primary Dx); Vasovagal syncope; Shortness of breath; Palpitations; Encounter for medication review and counseling; Obesity, morbid, BMI 40.0-49.9 (Multi); Never smoked cigarettes; Near syncope Start: 05-14-2023 End: 05-14-2023 ambulatory GIULIANO BAUMANN Not Available Start: 05-05-2023 End: 05-05-2023 ambulatory [facility] Ambulatory Start: 05-05-2023 End: 05-05-2023 Office outpatient visit 40 minutes Audra Fabian MD Work Phone: [facility] Comment on above: Orthostatic hypotens ion (Primary Dx); Palpitations; Shortness of breath; Vasovagal syncope; Encounter for medication review and counseling; Encounter to discuss treatment options Start: 04-27-2023 End: 04-27-2023 ambulatory [facility] Ambulatory Start: 04-17-2023 End: 04-17-2023 ambulatory Allyssa De Guzman Other [employer] Other Start: 04-17-2023 Telephone encounter Allyssa De Guzman [facility] Start: 03-06-2023 End: 03-06-2023 Office consultation new/estab patient 60 min Audra Fabian MD Work Phone: [facility] [address] Comment on above: Vaso vagal episode ( Primary Dx); Vasovagal syncope; Essential hypertension; Palpitations; Shortness of breath; Orthostatic hypotension; Mixed bipolar affective disorder, moderate (CMS/HCC) Start: 03-06-2023 End: 03-06-2023 ambulatory [facility] Ambulatory Start: 02-28-2023 End: 03-01-2023 ambulatory XAVIER HOOVER Not Available Start: 12-09-2022 End: 12-09-2022 ambulatory Allyssa De Guzman Other [employer] Other Start: 12-09-2022 Office outpatient vi sit 15 minutes Allyssa De Guzman [facility] Start: 09-30-2022 [facility]phone [facility] Work [facility]: Start: 09-12-2022 Telephone encounter [facility] Work Phone: Start: 09-12-2022 End: 09-12-2022 ambulatory Allyssa De Guzman Other [facility] [email or web address] Other Start: 09-12-2022 Office outpatient vi sit 15 minutes Allyssa De Guzman [facility] Start: 08-29-2022 ambulatory MD EDIN MICHAELS Facilit y: Start: 08-19-2022 Chart Update Allyssa De Guzman [facility] Work Phone: Start: 08-17-[address] Kylie Marc Facility:[id number] Start: 08-17-2022 End: 08-17-2022 ambulatory Edin Michaels Facility:[facility] Start: 08-17-2022 End: 08-17-2022 ambulatory MD Allyssa De Guzman Work Phone: [facility] Work Phone: Start: 08-17-2022 End: 08-17-2022 Patient encounter procedure MD Allyssa De Guzman Work Phone: [facility] Work Phone: Start: 08-02-2022 End: 08-02-2022 ambulatory Allyssa De Guzman Other [facility] [email or web address] Other Start: 08-02-2022 Telephone encounter Allyssa De Guzman [facility] Sustainability Director Start: 07-11-2022 ambulatory MD EDIN MICHAELS Facilit y: Start: 07-11-2022 Office outpatient vi sit 25 minutes Allyssa Hernandez De Guzman Work Phone: [facility] 250 DO Work Phone: Start: 07-11-2022 Patient encounter procedure Allyssa De Guzman Work Phone: [facility] 250 DO Work Phone: Start: 06-23-2022 End: 06-23-2022 ambulatory Allyssa De Guzman Other [employer] Other Start: 06-23-2022 Office outpatient vi sit 15 minutes Allyssa De Guzman [facility] Start: 06-23-2022 Telephone encounter Allyssa De Guzman [facility] Start: 06-20-2022 End: 06-21-[address] DOCTOR ROSE Facility: Start: 06-19-2022 ambulatory MD EDIN MICHAELS Facilit y: Start: 06-15-2022 ambulatory MD EDIN MICHAELS Facilit y: Start: 06-15-2022 Patient encounter procedure Allyssa Hernandez Margarita Work Phone: [facility] 250 DO Work Phone: Start: 06-06-2022 ambulatory MD EDIN MICHAELS Facilit y: Start: 06-06-2022 Office consultation new/estab patient 60 min Allyssa Hernandez De Guzman Work Phone: [facility] 250 DO Work Phone: Start: 06-06-2022 Patient encounter procedure Allyssa De Guzman Work Phone: [facility] 250 DO Work Phone: Start: 05-09-2022 End: 05-09-2022 ambulatory Allyssa De Guzman Other [employer] Other Start: 05-09-2022 Telephone encounter Allyssa De Guzman [facility] Start: 04-18-2022 End: 04-18-2022 ambulatory Allyssa De Guzman Other [employer] Other Start: 04-18-2022 Office outpatient vi sit 15 minutes Allyssa De Guzman [facility] Start: 04-12-2022 End: 04-12-2022 ambulatory Allyssa De Guzman Other [employer] Other Start: 04-12-2022 Telephone encounter Allyssa De Gumzan [facility] Start: 03-25-2022 End: 03-26-[address] ALLYSSA DE GUZMAN Facility:H1 Start: 01-07-2022 End: 01-08-2022 ambulatory MAURILIO JAMISON Facility:[facility] Start: 12-28-2021 End: 12-29-2021 ambulatory MAURILIO JAMISON Facility:[facility] Start: 12-21-2021 End: 12-22-[address] ALLYSSA DE GUZMAN Facility:[facility] Start: 11-18-2021 End: 11-18-2021 ambulatory Melanie Major Other [employer] Other Start: 11-18-2021 Office outpatient ne w 20 minutes Melanie Major [facility]e Procedures Date Procedure Procedure Detail Performing Clinician Start: 08-18-2023 COMPRESSION STOCKING S 20-30 [facility] AUDRA RUI Start: 08-18-2023 ECG 12-LEAD AUDRA RUI Start: 08-18-2023 Ecg routine ecg w/le ast 12 lds w/i&r Audra Fabian MD Work Phone: Start: 05-05-2023 COMPRESSION STOCKING S 20-30 [facility] AUDRA RUI Start: 05-05-2023 ECG 12-LEAD AUDRA RUI Start: 05-05-2023 Ecg routine ecg w/le ast 12 lds w/i&r Audra Fabian MD Work Phone: Start: 04-27-2023 HOLTER OR EVENT CARD IAC MONITOR AUDRA RUI Start: 03-06-2023 ECG 12-LEAD AUDRA RUI Start: 03-06-2023 Ecg routine ecg w/le ast 12 lds w/i&r Audra Fabian MD Work Phone: Ear Pressure Equaliz ation Tube, Insertion, Bilaterally Allyssa De Guzman Work Phone: Tonsillectomy and adenoidectomy Allyssa De Guzman Work Phone: Plan of Treatment Date Care Activity Detail Author Start: 2053 Zoster Vaccines (1 o f 2) Zoster Vaccines (1 of 2) [facility] Start: 02-20-2024 End: 02-20-2024 Patient encounter procedure 02/20/2024 2:20 PM EST Office Visit [facility] [address] [place] [address] Audra Fabian MD [address] [place] [address] [facility] Start: 12-10-2023 Influenza vaccination Influenz a Vaccine (Season Ended) [facility] Start: 11-03-2023 End: 11-03-2023 Patient encounter procedure 11/03/2023 12:20 PM EDT Office Visit [facility] [address] [place] [address] Audra Fabian MD [address] [place] [address] [facility] Start: 11-02-2023 End: 11-02-2023 Patient encounter procedure [facility] Start: 05-19-2023 End: 05-19-2023 Patient encounter procedure 05/19/2023 11:40 AM EST Office Visit [facility] [address] [place] [address] Audra Fabian MD [address] [place] [address] [facility] Start: 03-06-2023 End: 03-06-2025 Holter monitor study Holter Or Event Chief Nuclear Medicine Technologist Cardiac Services Routine Vasovagal syncope Expected: 03/06/2023 (Approximate), Expires: 03/06/2025 [facility] Service Area Work Phone: Comment on above: Expected: 03/06/2023 (Approximate), Expires: 03/06/2025 Start: 03-06-2023 End: 03-06-2025 Heart Transthoracic Transthoracic Echo (TTE) Complete Echocardiography Routine Vasovagal syncope Shortness of breath Expected: 03/06/2023 (Approximate), Expires: 03/06/2025 [facility] Work Phone: Comment on above: Expected: 03/06/2023 (Approximate), Expires: 03/06/2025 Start: 02-17-2023 FUV, Provider: Audra Fabian, Status: Pen, Time: 2:00 PM FUV, Provider: Audra Fabian, Status: Pen, Time: 2:00 PM [facility] Work Phone: Start: 02-13-2023 FUV, Provider: Edin Michaels, Status: Pen, Time: 10:15 AM FUV, Provider: Edin Michaels, Status: Pen, Time: 10:15 AM [facility] 250 DO Work Phone: Start: 12-09-2022 COVID-19 Vaccine ( season) COVID-19 Vaccine ( season) [facility] Start: 12-09-2022 Influenza vaccination Influenza Vacc ine (#1) [facility] Start: 08-29-2022 FUV, Provider: Edin Michaels, Status: Pen, Time: 10:00 AM FUV, Provider: Edin Michaels, Status: Pen, Time: 10:00 AM [facility] Work Phone: Start: 08-17-2022 SURGNONUH, Provider: Kylie Marc, Status: Pen, Time: 11:00 AM SURGNONUH, Provider: Kylie Marc, Status: Pen, Time: 11:00 AM [facility] Work Phone: Start: 08-11-2022 STRESS CHERISE, [facility] : [facility] ,[id number], Status: Pen, Time: 11:30 AM STRESS CHERISE, Provider: PHAN [facility]VI NUCLEAR 01,[id number], Status: Pen, Time: 11:30 AM -[facility] 101 DO Work Phone: Start: 08-11-2022 STRESS CHERISE, Provider : PHAN [facility]VI NUCLEAR 01,[id number], Status: Pen, Time: 11:00 AM STRESS CHERISE, Provider: PHAN [facility]VI NUCLEAR 01,[id number], Status: Pen, Time: 11:00 AM -[facility] 250 DO Work Phone: Start: 06-27-2022 FUV, Provider: Edin Michaels, Status: Pen, Time: 1:00 PM FUV, Provider: Edin Michaels, Status: Pen, Time: 1:00 PM -[facility] 250 DO Work Phone: Start: 06-15-2022 HOLTER MON, Provider : [employer] BUS SYSTEM OPERATOR 1,[id number], Status: Pen, Time: 1:30 PM HOLTER MON, Provider: [place] [employer] SYSTEM OPERATOR 1,[id number], Status: Pen, Time: 1:30 PM -[facility] 250 DO Work Phone: Start: 2022 Hepatitis B Vaccines (1 of 3 - 19+ 3-dose series) Hepatitis B Vaccines (1 of 3 - 19+ 3-dose series) [facility] Start: 2021 Diabetes mellitus screening Diabetes Screening [facility] Start: 2021 Hepatitis C screening Hepatitis C [facility] Start: 2018 HPV Vaccines (1 - 3-dose series) HPV Vaccines (1 - 3-dose series) [facility] Start: 01-28-2016 Varicella vaccination Varicell a Vaccines (1 of 2 - 13+ 2-dose series) [facility] Start: 2014 HPV Vaccines (1 - 2-dose series) HPV Vaccines (1 - 2-dose series) [facility] Start: 2010 DTaP/Tdap/Td Vaccine s (1 - Tdap) DTaP/Tdap/Td Vaccines (1 - Tdap) [facility] Start: 2006 Well Child Visit (WC V) - Annual Well Child Visit (WCV) - Annual [facility] Start: 01-28-2004 MMR Vaccines (1 of 1 - Standard series) MMR Vaccines (1 of 1 - Standard series) [facility] Start: 01-28-2004 Varicella vaccination Varicell a Vaccines (1 of 2 - 2-dose childhood series) [facility] Start: 2003 COVID-19 Vaccine (#1) COVID-19 Vacci ne (#1) [facility] Start: 2003 Hearing Screening (#1) Hearing Scree silvino (#1) [facility] Start: 2003 Hepatitis B Vaccines (1 of 3 - 3-dose series) Hepatitis B Vaccines (1 of 3 - 3-dose series) [facility] Start: 2003 HIV screening HIV Screening [facility] Start: 2003 Lipid panel Lipid Panel [facility] Payers Date Payer Category Payer Self-pay 2021 Unknown 2003 Unknown [id number] 2.16.84 [id number] 2003 Unknown [id number] 2.16.84 [id number] 2003 Unknown [id number] 2.16. [id number] 2003 Unknown [id number] 2.16. [id number] 2003 Unknown [id number] 2.16. 840.1.374963.3.579.2.356 2003 Unknown [id number] 2.16. 840.1.660704.3.579.2.356 2003 Unknown [id number] 2.16.84 0.1.987159.3.579.2.1259 2003 Unknown [id number] 2.16.840 .1.951550.3.579.2.1259 2003 Unknown [id number] 2.16.840 .1.703316.3.579.2.1259 2003 Unknown [id number] 2.16.8 40.1.020530.3.579.2.1244 2003 Unknown [id number] 2.16.8 40.1.901002.3.579.2.1244 2003 Unknown [id number] 2.16.8 40.1.875265.3.579.2.1244 2003 Unknown [id number] 2.16.8 40.1.993701.3.579.2.1244 1972 Unknown [id number] 2.16.84 0.1.456912.3.579.2.593 1972 Unknown [id number] 2.16.84 0.1.630071.3.579.2.593 1972 Unknown [id number] 2.16.84 0.1.464121.3.579.2.593 1972 Unknown [id number] 2.16. 840.1.223345.3.579.2.356 1972 Unknown [id number] 2.16. 840.1.106639.3.579.2.356 1959 Unknown [id number] 2.1 [id number] 1959 Unknown [id number] 2. [id number] Unknown O [id number] Unknown Regular Insurance [id number] Unknown [id number] 2.16.8 [id number] Social History Date Type Detail Facility Start: 03-06-2023 End: 05-05-2023 Sex Assigned At [facility] Other Start: 03-06-2023 End: 05-05-2023 Lives with mother (single parent) Lives with mother (single parent) [facility] 250 DO Work Phone: Start: 2003 Sex Assigned At Female F [facility] Start: 03-06-2023 Tobacco smoking status NHIS Never smoked tobacco [facility] Work Phone: Start: 03-06-2023 Tobacco use and exposure Smokeless tobacco non-user [facility] Work Phone: Start: 03-06-2023 End: 08-18-2023 Alcohol intake Lifetime non-drinker (finding) [facility] Work Phone: Start: 2003 [facility]: Start: 02-24-2023 End: 08-18-2023 Exposure to SARS-CoV-2 (event) Not sure [facility] Clinical Notes 07-09-2009 to 08-18-2023 Audra Fabian MD - 08/18/2023 11:20 AM EDTPatient InstructionsAudra Fabian MD - 05/05/2023 4:00 PM ESTPatient Instructions Note Date & Type Note Facility 08-18-2023 History of Presen t illness Narrative Chief Complaint: Follow-up (6 months) History Of Present Illness: Arabella Knott is a 18 y.o. female presenting with follow-up. She is accompanied by her mother. The patient reports that she has not had any dima syncope, but she has had dizziness and fatigue. The patient's mother reports that over the last several weeks the patient has not been able to even get up out of bed because of fatigue. 1 time the patient called her mother that patient's blood pressure was 70s. She laid down for couple hours, drink increased fluids, and with time her symptoms improved. After she has an episode like that, she is tired for a long time. I am Last Recorded Vitals: Vitals: 08/18/23 1131 BP: 128/78 BP Location: Right arm Patient Position: Sitting Pulse: 73 Weight: 132 kg (292 lb) Height: 1.651 m (5' 5 ) Past Medical History: See List Past Surgical History: See List Social History: She reports that she has never smoked. She has never used smokeless tobacco. She reports that she does not drink alcohol and does not use drugs. Family History: Family History Problem Relation Name Age of Onset Hypertension Mother Blood clot Mother Nephrolithiasis Mother No Known Problems Father Allergies: Vraylar [cariprazine] Outpatient Medications: Current Outpatient Medications Medication Instructions acebutolol (SECTRAL) 200 mg, oral, 2 times daily midodrine (PROAMATINE) 5 mg, oral, 3 times daily Vyvanse 30 mg, oral, As needed Review of Systems Cardiovascular: Positive for near-syncope. Negative for chest pain, dyspnea on exertion and palpitations. Neurological: Positive for dizziness and headaches. All other systems reviewed and are negative. Physical Exam: Constitutional: General: Awake. Appearance: Normal and healthy appearance. Not in distress. Morbidly obese. Neck: Vascular: No JVR. JVD normal. Pulmonary: Effort: Pulmonary effort is normal. Breath sounds: Normal breath sounds. No wheezing. No rhonchi. No rales. Chest: Chest wall: Not tender to palpatation. Cardiovascular: PMI at left midclavicular line. Normal rate. Regular rhythm. Normal S1. Normal S2. Murmurs: There is no murmur. No gallop. No click. No rub. Pulses: Intact distal pulses. Edema: Peripheral edema absent. Abdominal: Tenderness: There is no abdominal tenderness. Musculoskeletal: Normal range of motion. General: No tenderness. Skin: General: Skin is warm and dry. Neurological: General: No focal deficit present. Mental Status: Alert and oriented to person, place and time. Last Labs: CBC - No results found for: WBC , HGB , HCT , MCV , PLT CMP - No results found for: CALCIUM , PHOS , PROT , ALBUMIN , AST , ALT , ALKPHOS , BILITOT LIPID PANEL - No results found for: CHOL , TRIG , HDL , CHHDL , LDLF , VLDL , NHDL RENAL FUNCTION PANEL - No results found for: GLUCOSE , NA , K , CL , CO2 , ANIONGAP , BUN , CREATININE , GFRMALE , CALCIUM , PHOS , ALBUMIN No results found for: BNP , HGBA1C Last Cardiology Tests: ECG: ECG 12 Lead 05/05/2023 Today. Normal sinus rhythm. Normal axis. Corrected QT interval 410 ms Lab review: I have personally reviewed the laboratory result(s) see above Assessment/Plan Diagnoses and all orders for this visit: Near syncope Vasovagal syncope Shortness of breath Palpitations Orthostatic hypotension Encounter for medication review and counseling Obesity, morbid, BMI 40.0-49.9 (Multi) Never smoked cigarettes Claudia Rubio RN Vasovagal/neurally mediated syncope and near syncope by history. Reported abnormal tilt table test. The available records discussed testing and unremarkable echo but no documented cardiac testing results available. Will increase midodrine to 10 mg 3 times a day. Start sodium chloride 500 mg twice daily. Prescribed waist high compression stockings. Discussed what [id number] medications to avoid. Patient's mother reports that the patient's great uncle had abnormal genetic condition and the rest of the family needed to be evaluated. Patient's mother reports that no one has been evaluated and no specific information known about this. We attempted to screen patient with echocardiogram in the past, but this was not approved by insurance. I did review with the patient and her mother that there was and outside data conversion operator note describing that the 2021 echocardiogram was unremarkable. Greater than 50% of the visit for counseling. The patient, mother, and I discussed syncope, near syncope, tachycardia, evaluation, and previous cardiology notes, increasing midodrine dose, increase salt intake, increase fluid intake, consideration for loop recorder in the future, when to go to the emergency room, treatment options, risk, benefits, and imponderables. All questions answered in detail. Patient and family family appreciative care. Increased jeanmarie of visit for discussion regarding arrhythmia, mechanisms of syncope, blood pressure control, behavioral modification, how compression stockings work, how it increased fluid intake and increased preload work, and management. documented in this encounter [facility] Work Phone: 08-18-2023 Instructions Claudia Rubio RN - 08/18/2023 11:20 AM EDT Continue same medications/treatment. Patient educated on proper medication use. Patient educated on risk factor modification. Please bring any lab results from other providers/physicians to your next appointment. Please bring all medicines, vitamins, and herbal supplements with you when you come to the office. Prescriptions will not be filled unless you are compliant with your follow up appointments or have a follow up appointment scheduled as per instruction of your physician. Refills should be requested at the time of your visit. INCREASE midodrine to 10mg three times daily START sodium chloride 1/2 tablet twice daily Follow up with PCP in a couple weeks Follow up with Dr. Fabian in 6 months I, CLAUDIA RUBIO RN, AM SCRIBING FOR AND IN THE PRESENCE OF DR. AUDRA FABIAN MD, FACC, FACP, FHRS documented in this encounter [facility] Work Phone: 05-05-2023 History of Presen t illness Narrative Chief Complaint: Follow-up (Zio patch- unable to wear due to allergic reaction) History Of Present Illness: Arabella Knott is a 18 y.o. female presenting with followup. She is accompanied by her mother. She reports that she is feeling better. Her HR doesn't spike as high, it's max is 124 bpm. She couldn't tolerate the Ziopatch due to the adhesive allergy. We did review that some records through [employer] everywhere [place] were obtained. There are cardiology notes and references to unremarkable echocardiogram from 2021 and to a tilt test but no cardiac testing data available for review. Last Recorded Vitals: Vitals: 05/05/23 1607 BP: 126/74 BP Location: Left arm Patient Position: Sitting BP Cuff Size: Adult Pulse: 64 Weight: 130 kg (287 lb) Height: 1.651 m (5' 5 ) Past Medical History: See List Past Surgical History: See List Social History: She reports that she has never smoked. She has never used smokeless tobacco. She reports that she does not drink alcohol and does not use drugs. Family History: Family History Problem Relation Name Age of Onset Hypertension Mother Blood clot Mother Nephrolithiasis Mother No Known Problems Father Allergies: Vraylar [cariprazine] Outpatient Medications: Current Outpatient Medications Medication Instructions acebutolol (SECTRAL) 200 mg, oral, 2 times daily busPIRone (BUSPAR) 5 mg, oral, Daily escitalopram (LEXAPRO) 5 mg, oral, Daily magnesium oxide (MAG-OX) 400 mg, oral, Daily RT meloxicam (MOBIC) 15 mg, oral, Daily RT midodrine (PROAMATINE) 2.5 mg, oral, 3 times daily Vyvanse 30 mg, oral, As needed Review of Systems Cardiovascular: Negative for chest pain and dyspnea on exertion. All other systems reviewed and are negative. Physical Exam: Constitutional: General: Awake. Appearance: Normal and healthy appearance. Well-developed and not in distress. Neck: Vascular: No JVR. JVD normal. Pulmonary: Effort: Pulmonary effort is normal. Breath sounds: Normal breath sounds. No wheezing. No rhonchi. No rales. Chest: Chest wall: Not tender to palpatation. Cardiovascular: PMI at left midclavicular line. Normal rate. Regular rhythm. Normal S1. Normal S2. Murmurs: There is no murmur. No gallop. No click. No rub. Pulses: Intact distal pulses. Edema: Peripheral edema absent. Abdominal: Tenderness: There is no abdominal tenderness. Musculoskeletal: Normal range of motion. General: No tenderness. Skin: General: Skin is warm and dry. Neurological: General: No focal deficit present. Mental Status: Alert and oriented to person, place and time. Last Labs: CBC - No results found for: WBC , HGB , HCT , MCV , PLT CMP - No results found for: CALCIUM , PHOS , PROT , ALBUMIN , AST , ALT , ALKPHOS , BILITOT LIPID PANEL - No results found for: CHOL , TRIG , HDL , CHHDL , LDLF , VLDL , NHDL RENAL FUNCTION PANEL - No results found for: GLUCOSE , NA , K , CL , CO2 , ANIONGAP , BUN , CREATININE , GFRMALE , CALCIUM , PHOS , ALBUMIN No results found for: BNP , HGBA1C Last Cardiology Tests: ECG: ECG 12 lead (Clinic Performed) 03/06/2023 Today. Normal sinus rhythm. Normal axis. Corrected QT interval 420 ms Lab review: I have personally reviewed the laboratory result(s) see above Assessment/Plan Diagnoses and all orders for this visit: Orthostatic hypotension Palpitations Shortness of breath Vasovagal syncope Encounter for medication review and counseling Encounter to discuss treatment options Claudia Rubio RN Vasovagal/neurally mediated syncope and near syncope by history. Reported abnormal tilt table test. The available records discussed testing and unremarkable echo but no documented cardiac testing available. Will ask office to attempt again to find the data. By history, she may also have postural orthostatic tachycardia syndrome , and symptoms improved with empirical EULALIA beta-frank and midodrine. Will increase midodrine as she still has episodes of syncope. Patient was unable to tolerate Zio patch due to adhesive allergy. As echocardiogram in the past was reportedly unremarkable, will monitor by symptoms. If increased symptoms then would attempt NoteWagon monitor if patient is able to tolerate wearing the monitor. Further evaluation pending possible monitoring in the future. Patient's mother reports that the patient's great uncle had abnormal genetic condition and the rest of the family needed to be evaluated. Patient's mother reports that no one has been evaluated and no specific information known about this. We attempted to screen patient with echocardiogram, but this was not approved by insurance. I did review with the patient and her mother that there was and outside data conversion operator note describing that the 2021 echocardiogram was unremarkable. Greater than 50% of the visit for counseling regarding syncope, near syncope, tachycardia, evaluation, and previous cardiology notes. Consider implantable loop recorder in future. Patient family appreciative care. All questions answered. documented in this encounter [facility] Work Phone: 05-05-2023 Instructions Claudia Rubio RN - 05/05/2023 4:00 PM EST Continue same medications/treatment. Patient educated on proper medication use. Patient educated on risk factor modification. Please bring any lab results from other providers/physicians to your next appointment. Please bring all medicines, vitamins, and herbal supplements with you when you come to the office. Prescriptions will not be filled unless you are compliant with your follow up appointments or have a follow up appointment scheduled as per instruction of your physician. Refills should be requested at the time of your visit. INCREASE midodrine to 5mg three times daily Follow up with Dr. Fabian in 6 months I, CLAUDIA RUBIO RN, AM SCRIBING FOR AND IN THE PRESENCE OF DR. 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 Michaels for Consult and Syncope History Of Present Illness: Arabella Knott is a 18 y.o. female presenting with [facility] care. Accompanied by her mother. The patient has remote syncope and recurrent dizziness and near syncope. [facility]. She is uncertain of results and management except that she has vasovagal episodes. She can feel hot, dizzy, lightheaded and nearly passed out. This may occur when she is at work. 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 Past Medical History: Recent fall, without syncope. Fractured patella. Past Surgical History: She has a past surgical history that includes Tonsillectomy (01/29/2016) and Tympanostomy tube placement (01/29/2016). Social History: She reports that she has never smoked. She has never used smokeless tobacco. She reports that she does not drink alcohol and does not use drugs. Family History: Family History Problem Relation Name Age of Onset Hypertension Mother Blood clot Mother Nephrolithiasis Mother Allergies: Vraylar [cariprazine] Outpatient Medications: Current Outpatient Medications Medication Instructions magnesium oxide (MAG-OX) 400 mg, oral, Daily RT meloxicam (MOBIC) 15 mg, oral, Daily RT Last Recorded Vitals: Vitals: 03/06/23 1220 BP: 138/84 BP Location: Left arm Patient Position: Sitting Pulse: 75 Weight: 131 kg (288 lb) Height: 1.651 m (5' 5 ) Physical Exam Cardiovascular: Rate and Rhythm: Normal rate. Pulses: Normal pulses. Heart sounds: Normal heart sounds. Pulmonary: Effort: Pulmonary effort is normal. Neurological: General: No focal deficit present. Mental Status: She is alert. Normal gait. Extremities. Wearing right knee brace Last Labs: See computer Review of Systems Constitutional: Negative. Cardiovascular: Positive for near-syncope and syncope. Respiratory: Negative. Gastrointestinal: Positive for dysphagia. Neurological: Positive for light-headedness. All other systems reviewed and are negative. Last Cardiology Tests: ECG: Normal sinus rhythm. Normal axis. Corrected QT interval 410 ms Lab review: I have personally reviewed the laboratory result(s) see above Assessment/Plan Problem List Items Addressed This Visit Essential hypertension RESOLVED: Vaso vagal episode Palpitations Shortness of breath Other Visit Diagnoses Vasovagal syncope - Primary Vito Ramos LPN Vasovagal/neurally mediated syncope and near syncope by history. Reported abnormal tilt table test.Unable to find Flores results on available record review. We will have patient's sign another release of records. She may also have postural orthostatic tachycardia syndrome as she reports her heart rate to be elevated at times when she is standing for a few minutes. Will obtain 4-week event monitor. She has self adjusted her medications. I discussed with her compliance with medicines and taking acebutolol twice daily. We will change to 200 mg twice daily to 400 mg daily. She self discontinued spironolactone. She reports that she is not taking midodrine. We will start midodrine 2.5 mg 3 times daily with first dose before she rises from bed. Compression stockings also ordered. Patient's mother reports that the patient's great uncle had abnormal genetic condition and the restof the family needed to be evaluated. Patient's mother reports that no one has been evaluated and no specific information known about this. We will screen patient with echocardiogram to evaluate for structural abnormality given syncope. Greater than 50% of the visit for counseling regarding syncope, near syncope, tachycardia, evaluation, and follow-up. Consider implantable loop recorder pending above results. Patient family appreciative care. All questions answered. [facility] Phone: 1(752) 567-711111-27-2023 Instructions* Patient Instructions* Vito Ramos LPN - 03/06/2023 11:40 AM EST Daniele office visit 2023 Acebutolol 200 mg BID Midodrine 2.5 mg TID 2 two week zio patches. 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 Hip pops out and other joints do as well. 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 Explained I do not regularly order genetic testing. Offered referral to ortho or rheum if needed. PT order given to pt. 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 Will contact cardio in [place], per their preference. 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 Vitals are stable. [employer] Other 03-16-2023 Evaluation note* Encounter Date Diagnosis Assessment Notes Treatment Notes Treatment Clinical Notes Jun, Acute non-recurrent pansinusitis (ICD-10 - J01.40) Advise she repeat home COVID test based on her symptoms. 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 Advised handwashing and other masking protocol. [employer] Other 01-09-2023 Evaluation note* Encounter Date Diagnosis Assessment Notes Treatment Notes Treatment Clinical Notes Apr, Acute non-recurrent maxillary sinusitis (ICD-10 - J01.00) Sinus infections can be triggered by a secondary infection from a viral URI or even seasonal allergies. Take medications as directed. Use saline nasal spray prior to presciption nasal spray. Take medications as directed, and complete all doses of medication even if you start to feel better. Patient advised to follow up with PCP if symptoms persist or worsen. Patient verbalized understanding and agreement with treatment plan. [employer] Other 09-20-2022 NotePROCEDURE: XR ANKLE RT MIN 3 VIEWS, XR FOOT RT MIN 3 VIEWS HISTORY: Pain of right ankle joint ; chronic anterior right ankle pain COMPARISON: XR ankle right 12/21/2021 FINDINGS: BONES:No fracture, acute abnormality, or significant arthropathy. SOFT TISSUES:No visible soft tissue swelling. EFFUSION:None visible. OTHER: Negative. IMPRESSION: 1. No suspicious findings of the right ankle and foot. Electronically authenticated by: SANDRA ROSSI Date: 2021-12-28 14:03[facility]09-20-2022 NotePROCEDURE: XR ANKLE RT MIN 3 VIEWS, XR FOOT RT MIN 3 VIEWS HISTORY: Pain of right ankle joint ; chronic anterior right ankle pain COMPARISON: XR ankle right 12/21/2021 FINDINGS: BONES:No fracture, acute abnormality, or significant arthropathy. SOFT TISSUES:No visible soft tissue swelling. EFFUSION:None visible. OTHER: Negative. IMPRESSION: 1. No suspicious findings of the right ankle and foot. Electronically authenticated by: SANDRA ROSSI Date: 2021-12-28 14:03[facility]09-14-2022 NotePROCEDURE: XR ANKLE RT MIN 3 VIEWS COMPARISON: None. HISTORY: Arthralgia of the ankle and/or foot FINDINGS: BONES:No fracture, acute abnormality, or significant arthropathy. SOFT TISSUES:Negative. No visible soft tissue swelling. EFFUSION:None visible. OTHER: Negative. IMPRESSION: No acute abnormality Electronically authenticated by: TATE GUERRERO Date: 2021-12-22 07:09[facility]08-11-2022 Evaluation note* Encounter Date Diagnosis Assessment Notes Treatment Notes Treatment Clinical Notes Nov, Urticaria (ICD-10 - L50.9) Drink plenty fluids, get plenty of rest. Take the prednisone as prescribed until gone. Take Benadryl as needed for itching. Follow-up with your family physician if no improvement in 2 to 3 days. Nov, Other Contact dermati tis home care material was printed [employer] Other 04-01-2010 History general Narrative - Reported* Type Description Date Medical History Gerd Medical History Hypertension Medical History TMJ Medical History Headaches Medical History Tachycardia Surgical History T&A 07/2009 Surgical History Tubes in ears 2012 [employer] Other Chief complaint Narrative - ReportedKENDALL HEDY is being seen for SELF REFERRAL.-[place] [employer] [employer] DO Work Phone: [place] complaint Narrative - ReportedKENDALL HEDY is being seen for SELF REFERRAL.-[place] [employer] [employer] DO Work Phone: Evaluation noteNo InformationNort [employer] Other Evaluation noteNo assessment information available [facility] Work Phone: Evaluation note* Diagnosis Vaso vagal episode- Primary Syncope and collapse Vasovagal syncope Syncope and collapse Essential hypertension Unspecified essential hypertension Palpitations Shortness of breath Orthostatic hypotension Mixed bipolar affective disorder, moderate (CMS/HCC) Bipolar I disorder, most recent episode (or current) mixed, moderate documented in this encounter [facility] Work Phone: Evaluation note* Diagnosis Orthostatic hypotension- Primary Palpitations Shortness of breath Vasovagal syncope Syncope and collapse Encounter for medication review and counseling Encounter to discuss treatment options documented in this encounter [facility] Work Phone: Evaluation note* Diagnosis Orthostatic hypotension- Primary Vasovagal syncope Syncope and collapse Shortness of breath Palpitations Encounter for medication review and counseling Obesity, morbid, BMI 40.0-49.9 (Multi) Never smoked cigarettes Near syncope documented in this encounter [facility] Work Phone: History general Narrative - Reported* Type Description Date Medical History Gerd Medical History Hypertension Medical History TMJ Medical History Headaches Medical History Tachycardia Medical History ADHD (attention defi cit hyperactivity disorder), inattentive type Medical History Depression with anxiety Medical History Essential hypertension Medical History Tachycardia Medical History Syncope and collapse Medical History Insomnia, persistent Medical History Mild episode of recurrent major depressive disorder Surgical History T&A 07/2009 Surgical History Tubes in ears 2012 Hospitalization History SEE SURGICAL [employer] Other History general Narrative - Reported* Type Description Date Medical History Gerd Medical History Hypertension Medical History TMJ Medical History Headaches Medical History Tachycardia Medical History ADHD (attention defi cit hyperactivity disorder), inattentive type Medical History Depression with anxiety Medical History Essential hypertension Medical History Tachycardia Medical History Syncope and collapse Medical History Insomnia, persistent Medical History Mild episode of recurrent major depressive disorder Medical History Syncope Surgical History T&A 07/2009 Surgical History Tubes in ears 2012 Hospitalization History SEE SURGICAL [employer] Other History of Present illness Narrative* 17-year-old female is accompanied by her mother to the office. She is here to discuss palpitations and marked elevation in heart rate. * She reports that every time she changes posture her heart rate increases drastically. She reports that the heart rate will go from 80s to 140s from sitting to standing. She has frequently felt lightheaded. She has a history of hypertension and is currently on amlodipine and metoprolol succinate. She also is on Adderall for attention deficit, on this medicine she reports 40 to 50 pound weight lossover the last year, her current BMI is 43. She has lost weight because of appetite suppression. * Her last menstrual period was apparently 4 years ago and she reports that she is not , and she does not wish to have this investigated further. * She works in healthcare keeping/cleaning, and her work is physically demanding, she does get palpitations and shortness of breath while she is at work. She describes her palpitations as a sensation that her heart is racing, and is jumping out of her chest. * Her blood pressure is elevated in office, initially 160/118, with recheck blood pressure of 144/100. She did not take her blood pressure medications today, usually takes it in the afternoon. * An echocardiogram from March 2022 reports left atrial volume index of 50 mL/m LVEF of 60% RV systolic pressure of 36 mmHg technically difficult study * Laboratory data from September 2020 sodium 139 potassium 4 creatinine 0.76 TSH 2.95 total cholesterol 172 triglycerides 157 HDL 36 LDL 105 hemoglobin 13.5 hematocrit 39 platelets 345 * Assessment: * 1. Hypertension * 2. Symptoms concerning for KRISHNAMURTHY ,ie Postural orthostatic tachycardia syndrome * 3. Attention deficit disorder on Adderall with about 50 pound weight loss over the past year * 4. Increased BMI * 5. Palpitations * 6. Shortness of breath * 7. Echocardiogram March 2022-LVEF 60% normal diastolic function left atrial volume index 50 mL/mRV systolic pressure 36 mmHg left atrial diameter 3.7 cm * 8. Patient reports menstrual irregularity-amenorrhea, for 4 years, has decided not to seek medical attention for this * 9. Sleep study July 2020-did not meet criteria for obstructive sleep apnea syndrome * Recommendations: * 1. Comprehensive profile Free T4 TSH * 2. Aldactone 25 mg daily * 3. Discontinue metoprolol * 4. Acebutolol 400 mg p.o. twice daily * 5. Discontinue amlodipine * 6. Tilt table test * 7. Patient is planning on discontinuing the Adderall because it is not working for her. Defer this to primary * 8. Losartan 25 mg p.o. daily * As an after thought, I prefer to wait to start the losartan. Would start with the acebutolol and the Aldactone first. * Patient to stay well-hydrated at all times, and to avoid prolonged standing and sudden changes in posture. * Follow-up after testing,sooner if interval problems arise. * Thank you -[facility]armon 250 DO Work Phone: Summary Purpose Family History No Family History Records FoundUnknown Family Member Name Dates Details Family history of gastroesop hageal reflux disease: Mother, Maternal Grandmother, Maternal Grandfather(V18.59, Z83.79) Status:Active Bleeding ulcer: Maternal Gra ndfather Status:Active Hiatal hernia: Maternal Gran dfather Status:Active Diverticulitis: Maternal Gra ndmother Status:Active Family history of colonic po lyps: Maternal Grandfather(V18.51, Z83.71) Status:Active Family history of kidney sto selin: Mother, Maternal Relatives(V18.69, Z84.1) Status:Active S/P cholecystectomy: Mother, Cousin(V45.79, Z90.49) Status:Active Gallstones: Maternal Relativ es Status:Active Family history of thyroid di sease: Maternal Grandmother, Maternal Aunt, Maternal Relatives(V18.19, Z83.49) Status:Active Environmental allergies: Mat ernal Uncle Status:Active Family history of rheumatoid arthritis: Maternal Relatives(V17.7, Z82.61) Status:Active Family history of deep venou s thrombosis: Mother(V17.49, Z82.49) Status:Active Family history of migraine h eadaches: Mother(V17.2, Z82.0) Status:Active Family history of coagulatio n disorder: Paternal Relatives(V18.3, Z83.2) Status:Active Unknown Family Member Name Dates Details Family history of gastroesop hageal reflux disease: Mother, Maternal Grandmother, Maternal Grandfather(V18.59, Z83.79) Status:Active Bleeding ulcer: Maternal Gra ndfather Status:Active Hiatal hernia: Maternal Gran dfather Status:Active Diverticulitis: Maternal Gra ndmother Status:Active Family history of colonic po lyps: Maternal Grandfather(V18.51, Z83.71) Status:Active Family history of kidney sto selin: Mother, Maternal Relatives(V18.69, Z84.1) Status:Active S/P cholecystectomy: Mother, Cousin(V45.79, Z90.49) Status:Active Gallstones: Maternal Relativ es Status:Active Family history of thyroid di sease: Maternal Grandmother, Maternal Aunt, Maternal Relatives(V18.19, Z83.49) Status:Active Environmental allergies: Mat ernal Uncle Status:Active Family history of rheumatoid arthritis: Maternal Relatives(V17.7, Z82.61) Status:Active Family history of deep venou s thrombosis: Mother(V17.49, Z82.49) Status:Active Family history of migraine h eadaches: Mother(V17.2, Z82.0) Status:Active Family history of coagulatio n disorder: Paternal Relatives(V18.3, Z83.2) Status:Active Unknown Family Member Name Dates Details S/P cholecystectomy: Mother, Cousin(V45.79, Z90.49) Status:Active Gallstones: Maternal Relativ es Status:Active Family history of thyroid di sease: Maternal Grandmother, Maternal Aunt, Maternal Relatives(V18.19, Z83.49) Status:Active Environmental allergies: Mat ernal Uncle Status:Active Family history of rheumatoid arthritis: Maternal Relatives(V17.7, Z82.61) Status:Active Family history of deep venou s thrombosis: Mother(V17.49, Z82.49) Status:Active Family history of migraine h eadaches: Mother(V17.2, Z82.0) Status:Active Family history of coagulatio n disorder: Paternal Relatives(V18.3, Z83.2) Status:Active Family history of kidney sto selin: Mother, Maternal Relatives(V18.69, Z84.1) Status:Active Family history of colonic po lyps: Maternal Grandfather(V18.51, Z83.71) Status:Active Diverticulitis: Maternal Gra ndmother Status:Active Hiatal hernia: Maternal Gran dfather Status:Active Bleeding ulcer: Maternal Gra ndfather Status:Active Family history of gastroesop hageal reflux disease: Mother, Maternal Grandmother, Maternal Grandfather(V18.59, Z83.79) Status:Active Unknown Family Member Name Dates Details Family history of gastroesop hageal reflux disease: Mother, Maternal Grandmother, Maternal Grandfather(V18.59, Z83.79) Status:Active Bleeding ulcer: Maternal Gra ndfather Status:Active Hiatal hernia: Maternal Gran dfather Status:Active Diverticulitis: Maternal Gra ndmother Status:Active Family history of colonic po lyps: Maternal Grandfather(V18.51, Z83.71) Status:Active Family history of kidney sto selin: Mother, Maternal Relatives(V18.69, Z84.1) Status:Active S/P cholecystectomy: Mother, Cousin(V45.79, Z90.49) Status:Active Gallstones: Maternal Relativ es Status:Active Family history of thyroid di sease: Maternal Grandmother, Maternal Aunt, Maternal Relatives(V18.19, Z83.49) Status:Active Environmental allergies: Mat ernal Uncle Status:Active Family history of rheumatoid arthritis: Maternal Relatives(V17.7, Z82.61) Status:Active Family history of deep venou s thrombosis: Mother(V17.49, Z82.49) Status:Active Family history of migraine h eadaches: Mother(V17.2, Z82.0) Status:Active Family history of coagulatio n disorder: Paternal Relatives(V18.3, Z83.2) Status:Active Unknown Family Member Name Dates Details Family history of gastroesop hageal reflux disease: Mother, Maternal Grandmother, Maternal Grandfather(V18.59, Z83.79) Status:Active Bleeding ulcer: Maternal Gra ndfather Status:Active Hiatal hernia: Maternal Gran dfather Status:Active Diverticulitis: Maternal Gra ndmother Status:Active Family history of colonic po lyps: Maternal Grandfather(V18.51, Z83.71) Status:Active Family history of kidney sto selin: Mother, Maternal Relatives(V18.69, Z84.1) Status:Active S/P cholecystectomy: Mother, Cousin(V45.79, Z90.49) Status:Active Gallstones: Maternal Relativ es Status:Active Family history of thyroid di sease: Maternal Grandmother, Maternal Aunt, Maternal Relatives(V18.19, Z83.49) Status:Active Environmental allergies: Mat ernal Uncle Status:Active Family history of rheumatoid arthritis: Maternal Relatives(V17.7, Z82.61) Status:Active Family history of deep venou s thrombosis: Mother(V17.49, Z82.49) Status:Active Family history of migraine h eadaches: Mother(V17.2, Z82.0) Status:Active Family history of coagulatio n disorder: Paternal Relatives(V18.3, Z83.2) Status:Active Unknown Family Member Name Dates Details Family history of migraine h eadaches: Mother(V17.2, Z82.0) Status:Active Family history of deep venou s thrombosis: Mother(V17.49, Z82.49) Status:Active Family history of rheumatoid arthritis: Maternal Relatives(V17.7, Z82.61) Status:Active Environmental allergies: Mat ernal Uncle Status:Active Family history of thyroid di sease: Maternal Grandmother, Maternal Aunt, Maternal Relatives(V18.19, Z83.49) Status:Active Gallstones: Maternal Relativ es Status:Active S/P cholecystectomy: Mother, Cousin(V45.79, Z90.49) Status:Active Family history of kidney sto selin: Mother, Maternal Relatives(V18.69, Z84.1) Status:Active Family history of colonic po lyps: Maternal Grandfather(V18.51, Z83.71) Status:Active Diverticulitis: Maternal Gra ndmother Status:Active Hiatal hernia: Maternal Gran dfather Status:Active Bleeding ulcer: Maternal Gra ndfather Status:Active Family history of gastroesop hageal reflux disease: Mother, Maternal Grandmother, Maternal Grandfather(V18.59, Z83.79) Status:Active Family history of coagulatio n disorder: Paternal Relatives(V18.3, Z83.2) Status:Active Unknown Family Member Name Dates Details Family history of gastroesop hageal reflux disease: Mother, Maternal Grandmother, Maternal Grandfather(V18.59, Z83.79) Status:Active Bleeding ulcer: Maternal Gra ndfather Status:Active Hiatal hernia: Maternal Gran dfather Status:Active Diverticulitis: Maternal Gra ndmother Status:Active Family history of colonic po lyps: Maternal Grandfather(V18.51, Z83.71) Status:Active Family history of kidney sto selin: Mother, Maternal Relatives(V18.69, Z84.1) Status:Active S/P cholecystectomy: Mother, Cousin(V45.79, Z90.49) Status:Active Gallstones: Maternal Relativ es Status:Active Family history of thyroid di sease: Maternal Grandmother, Maternal Aunt, Maternal Relatives(V18.19, Z83.49) Status:Active Environmental allergies: Mat ernal Uncle Status:Active Family history of rheumatoid arthritis: Maternal Relatives(V17.7, Z82.61) Status:Active Family history of deep venou s thrombosis: Mother(V17.49, Z82.49) Status:Active Family history of migraine h eadaches: Mother(V17.2, Z82.0) Status:Active Family history of coagulatio n disorder: Paternal Relatives(V18.3, Z83.2) Status:Active Unknown Family Member Name Dates Details Family history of gastroesop hageal reflux disease: Mother, Maternal Grandmother, Maternal Grandfather(V18.59, Z83.79) Status:Active Hiatal hernia: Maternal Gran dfather Status:Active Diverticulitis: Maternal Gra ndmother Status:Active Family history of colonic po lyps: Maternal Grandfather(V18.51, Z83.71) Status:Active Family history of kidney sto selin: Mother, Maternal Relatives(V18.69, Z84.1) Status:Active S/P cholecystectomy: Mother, Cousin(V45.79, Z90.49) Status:Active Gallstones: Maternal Relativ es Status:Active Family history of thyroid di sease: Maternal Grandmother, Maternal Aunt, Maternal Relatives(V18.19, Z83.49) Status:Active Environmental allergies: Mat ernal Uncle Status:Active Family history of rheumatoid arthritis: Maternal Relatives(V17.7, Z82.61) Status:Active Family history of deep venou s thrombosis: Mother(V17.49, Z82.49) Status:Active Family history of migraine h eadaches: Mother(V17.2, Z82.0) Status:Active Family history of coagulatio n disorder: Paternal Relatives(V18.3, Z83.2) Status:Active Bleeding ulcer: Maternal Gra ndfather Status:Active Unknown Family Member Name Dates Details Family history of gastroesop hageal reflux disease: Mother, Maternal Grandmother, Maternal Grandfather(V18.59, Z83.79) Status:Active Bleeding ulcer: Maternal Gra ndfather Status:Active Hiatal hernia: Maternal Gran dfather Status:Active Diverticulitis: Maternal Gra ndmother Status:Active Family history of colonic po lyps: Maternal Grandfather(V18.51, Z83.71) Status:Active Family history of kidney sto selin: Mother, Maternal Relatives(V18.69, Z84.1) Status:Active S/P cholecystectomy: Mother, Cousin(V45.79, Z90.49) Status:Active Gallstones: Maternal Relativ es Status:Active Family history of thyroid di sease: Maternal Grandmother, Maternal Aunt, Maternal Relatives(V18.19, Z83.49) Status:Active Environmental allergies: Mat ernal Uncle Status:Active Family history of rheumatoid arthritis: Maternal Relatives(V17.7, Z82.61) Status:Active Family history of deep venou s thrombosis: Mother(V17.49, Z82.49) Status:Active Family history of migraine h eadaches: Mother(V17.2, Z82.0) Status:Active Family history of coagulatio n disorder: Paternal Relatives(V18.3, Z83.2) Status:Active Unknown Family Member Name Dates Details Family history of gastroesop hageal reflux disease: Mother, Maternal Grandmother, Maternal Grandfather(V18.59, Z83.79) Status:Active Bleeding ulcer: Maternal Gra ndfather Status:Active Hiatal hernia: Maternal Gran dfather Status:Active Diverticulitis: Maternal Gra ndmother Status:Active Family history of colonic po lyps: Maternal Grandfather(V18.51, Z83.71) Status:Active Family history of kidney sto selin: Mother, Maternal Relatives(V18.69, Z84.1) Status:Active S/P cholecystectomy: Mother, Cousin(V45.79, Z90.49) Status:Active Gallstones: Maternal Relativ es Status:Active Family history of thyroid di sease: Maternal Grandmother, Maternal Aunt, Maternal Relatives(V18.19, Z83.49) Status:Active Environmental allergies: Mat ernal Uncle Status:Active Family history of rheumatoid arthritis: Maternal Relatives(V17.7, Z82.61) Status:Active Family history of deep venou s thrombosis: Mother(V17.49, Z82.49) Status:Active Family history of migraine h eadaches: Mother(V17.2, Z82.0) Status:Active Family history of coagulatio n disorder: Paternal Relatives(V18.3, Z83.2) Status:Active Unknown Family Member Name Dates Details Family history of gastroesop hageal reflux disease: Mother, Maternal Grandmother, Maternal Grandfather(V18.59, Z83.79) Status:Active Bleeding ulcer: Maternal Gra ndfather Status:Active Hiatal hernia: Maternal Gran dfather Status:Active Diverticulitis: Maternal Gra ndmother Status:Active Family history of colonic po lyps: Maternal Grandfather(V18.51, Z83.71) Status:Active Family history of kidney sto selin: Mother, Maternal Relatives(V18.69, Z84.1) Status:Active S/P cholecystectomy: Mother, Cousin(V45.79, Z90.49) Status:Active Gallstones: Maternal Relativ es Status:Active Family history of thyroid di sease: Maternal Grandmother, Maternal Aunt, Maternal Relatives(V18.19, Z83.49) Status:Active Environmental allergies: Mat ernal Uncle Status:Active Family history of rheumatoid arthritis: Maternal Relatives(V17.7, Z82.61) Status:Active Family history of deep venou s thrombosis: Mother(V17.49, Z82.49) Status:Active Family history of migraine h eadaches: Mother(V17.2, Z82.0) Status:Active Family history of coagulatio n disorder: Paternal Relatives(V18.3, Z83.2) Status:Active Unknown Family Member Name Dates Details Family history of gastroesop hageal reflux disease: Mother, Maternal Grandmother, Maternal Grandfather(V18.59, Z83.79) Status:Active Bleeding ulcer: Maternal Gra ndfather Status:Active Hiatal hernia: Maternal Gran dfather Status:Active Diverticulitis: Maternal Gra ndmother Status:Active Family history of colonic po lyps: Maternal Grandfather(V18.51, Z83.71) Status:Active Family history of kidney sto selin: Mother, Maternal Relatives(V18.69, Z84.1) Status:Active S/P cholecystectomy: Mother, Cousin(V45.79, Z90.49) Status:Active Gallstones: Maternal Relativ es Status:Active Family history of thyroid di sease: Maternal Grandmother, Maternal Aunt, Maternal Relatives(V18.19, Z83.49) Status:Active Environmental allergies: Mat ernal Uncle Status:Active Family history of rheumatoid arthritis: Maternal Relatives(V17.7, Z82.61) Status:Active Family history of deep venou s thrombosis: Mother(V17.49, Z82.49) Status:Active Family history of migraine h eadaches: Mother(V17.2, Z82.0) Status:Active Family history of coagulatio n disorder: Paternal Relatives(V18.3, Z83.2) Status:Active Unknown Family Member Name Dates Details Family history of gastroesop hageal reflux disease: Mother, Maternal Grandmother, Maternal Grandfather(V18.59, Z83.79) Status:Active Bleeding ulcer: Maternal Gra ndfather Status:Active Hiatal hernia: Maternal Gran dfather Status:Active Diverticulitis: Maternal Gra ndmother Status:Active Family history of colonic po lyps: Maternal Grandfather(V18.51, Z83.71) Status:Active Family history of kidney sto selin: Mother, Maternal Relatives(V18.69, Z84.1) Status:Active S/P cholecystectomy: Mother, Cousin(V45.79, Z90.49) Status:Active Gallstones: Maternal Relativ es Status:Active Family history of thyroid di sease: Maternal Grandmother, Maternal Aunt, Maternal Relatives(V18.19, Z83.49) Status:Active Environmental allergies: Mat ernal Uncle Status:Active Family history of rheumatoid arthritis: Maternal Relatives(V17.7, Z82.61) Status:Active Family history of deep venou s thrombosis: Mother(V17.49, Z82.49) Status:Active Family history of migraine h eadaches: Mother(V17.2, Z82.0) Status:Active Family history of coagulatio n disorder: Paternal Relatives(V18.3, Z83.2) Status:Active Advance Directives No Advanced Directives Records Found Advance Directive Response Recorded Date/ Time Advance Directives No August 16, 2022 7:37am Chief Complaint and Reason for Visit Chief Complaint R42 R00.2 R06.02 Reason for Referral Specialty Diagnoses / Procedures Referred By Contac t Referred To Contact Diagnoses Shortness of breath Vasovagal syncope Procedures ECG 12 Lead Audra Fabian MD [address] [facility], [address] [address] Referral ID Status Reason Start Date Expiration Date V isits Requested Visits Authorized [id number] Authorized 05/05/2023 05/04/2024 1 1 Specialty Diagnoses / Procedures Referred By Contac t Referred To Contact Diagnoses Palpitations Procedures ECG 12 lead (Clinic Performed) Audra Fabian MD [address] [facility], [address] [address] Referral ID Status Reason Start Date Expiration Date V isits Requested Visits Authorized [id number] Authorized 05/05/2023 05/04/2024 1 1 Specialty Diagnoses / Procedures Referred By Contac t Referred To Contact Diagnoses Vaso vagal episode Procedures ECG 12 lead (Clinic Performed) Audra Fabian MD [address] [address] Referral ID Status Reason Start Date Expiration Date V isits Requested Visits Authorized [id number] Pending Review 03/06/2023 03/05/2024 1 1 Specialty Diagnoses / Procedures Referred By Contac t Referred To Contact Cardiology Diagnoses Vasovagal syncope Shortness of breath Procedures Transthoracic Echo (TTE) Complete IN ECHO TRANSTHORC R-T 2D W/WO M-MODE REC F-UP/LMTD IN DOP ECHOCARD COLOR FLOW VELOCITY MAPPING IN DOP ECHOCARD PULSE WAVE W/SPECTRAL F-UP/LMTD STD Audra Fabian MD [address] [address] Referral ID Status Reason Start Date Expiration Date Visits Requested Visits Authorized [id number] Pending Review Perform Procedure 03/05/2024 1 1 Specialty Diagnoses / Procedures Referred By Contac t Referred To Contact Cardiology Diagnoses Vasovagal syncope Procedures Holter Or Event Chief Nuclear Medicine Technologist Audra Fabian MD [address] [address] Referral ID Status Reason Start Date Expiration Date V isits Requested Visits Authorized [id number] Pending Review 03/06/2023 03/05/2024 1 1 Referral ID Status Reason Start Date Expiration Date V isits Requested Visits Authorized [id number] Pending Review 03/06/2023 03/05/2024 1 1 Additional Source Comments INFORMATION SOURCE (unrecogn ized section and content) DATE CREATED AUTHOR 01/12/[address] [facility] DATE CREATED AUTHOR AUTHOR'S ORGANIZ ATION 06/28/2022 [facility] DATE CREATED AUTHOR AUTHOR'S ORGANIZ ATION 07/15/2022 [employer] DATE CREATED AUTHOR AUTHOR'S ORGANIZ ATION 08/21/2022 [facility] DATE CREATED AUTHOR AUTHOR'S ORGANIZ ATION 12/17/2022 [facility] DATE CREATED AUTHOR AUTHOR'S ORGANIZ ATION 05/14/2023 [facility] DATE CREATED AUTHOR AUTHOR'S ORGANIZ ATION 10/27/2023 [facility] Ambulatory REASON FOR VISIT (unrecogniz ed section and content) Reason Comments Consult Syncope Specialty Diagnoses / Procedures Referred By Contac t Referred To Contact Diagnoses Vaso vagal episode Procedures ECG 12 lead (Clinic Performed) Audra Fabian MD [address] [facility], [address] [address] Referral ID Status Reason Start Date Expiration Date V isits Requested Visits Authorized [id number] Pending Review 03/06/2023 03/05/2024 1 1 Reason Comments Follow-up Zio patch- unable to wear due to allergic reaction Specialty Diagnoses / Procedures Referred By Contac t Referred To Contact Cardiology Diagnoses Vasovagal syncope Procedures Holter or Event Chief Nuclear Medicine Technologist Audra Fabian MD [address] [facility], [address] [address] Referral ID Status Reason Start Date Expiration Date V isits Requested Visits Authorized [id number] Authorized 04/27/2023 04/26/2024 1 1 Reason Comments Follow-up 6 months Specialty Diagnoses / Procedures Referred By Contac t Referred To Contact Diagnoses Palpitations Procedures ECG 12 Lead Audra Fabian MD [address] [facility], [address] [address] Referral ID Status Reason Start Date Expiration Date V isits Requested Visits Authorized [id number] Authorized 08/18/2023 08/17/2024 1 1 Care Teams (unrecognized sec tion and content) Team Status: Active Member Role Status Dates Allyssa De Guzman MD Primary Care Provider Active Team Status: Inactive Member Role Status Dates Allyssa De Guzman MD Primary Care Provider Active Edin Michaels MD Attending Provider Active Kylie Marc MD Referring Provider Active Press Reader Relationship Specialty Start Date End Date Allyssa De Guzman MD PCP - General 02/08/16 Press Reader Relationship Specialty Start Date End Date Allyssa De Guzman MD [address] [place] [address] PCP General 02/08/16 Audra Fabian MD [address] [facility] [address], [address] [place] [address] Consulting Physician Electrophysiology 05/04/23 Edin Michaels MD [address] [facility] [address], [address] [place] [address] Neurodiagnostic Tech Cardiology 05/05/23 Press Reader Relationship Specialty Start Date End Date Allyssa De Guzman MD [address] [place] [address] PCP General 02/08/16 Audra Fabian MD [address] [place] [address] Consulting Physician Electrophysiology 05/04/23 Edin Michaels MD [address] [facility] [address] [place] [address] Neurodiagnostic Tech Cardiology 05/05/23 Goals (unrecognized section and content) Goals may be documented in a n alternate section FOR RECORDS PERTAINING TO PATIENTS WHO ARE OR HAVE BEEN ENROLLED IN A CHEMICAL DEPENDENCY/SUBSTANCEABUSE PROGRAM, SOME INFORMATION MAY BE OMITTED. This clinical summary was aggregated from multiple sources. Caution should be exercised in using it in the provision of clinical care. This summary normalizes information from multiple sources, and as a consequence, information in this document may materially change the coding, format and clinical context of patient data. In addition, data may be omitted in some cases. CLINICAL DECISIONS SHOULD BE BASED ON THE PRIMARY CLINICAL RECORDS. [employer] [facility]. provides no warranty or guarantee of the accuracy or completeness of information in this document.
== END 2023-11-15 09:36 | disposition home or self-care (01) ==
LOC: CARD 09:36
PROVIDERS: PCP Family Medicine
DX: R40.4 Transient alteration of awareness (principal)
CPT/HCPCS: 95819

== ENCOUNTER 2024-05-04 16:29 | Outpatient (OUT) | payer OTHER, SELFPAY ==
--- NOTE | 2024-05-04 | XR_ITS ---
The [address] [address] Patient Name: ARABELLA KNOTT MRN: [id number] date: 2005 Sex: F Assigned Patient Location: [facility] Current Patient Location: [facility] Accession/Order Number: [id number] Exam Date: 05/04/2024 17:10 Report Date: 05/07/2024 04:54 At the request of: MEIR DE GUZMAN Procedure: XR lumbar spine 2-3V EXAMINATION: XR lumbar spine 2-3V HISTORY: Pain of Left Hip M25.552, M54.5, M79.605 COMPARISON: No relevant comparison available. 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 DISC SPACES: Mild narrowing of the L3-L4, L4-L5, L5-S1 disc spaces. Small calcification posterior to the L3-L4 disc space suggesting posterior disc bulging calcification within the posterior longitudinal ligament. PARASPINOUS: Negative. No paraspinous abnormality is seen. OTHER: Negative. XR/XR lumbar spine 2-3V IMPRESSION: 1. Mild to moderate degenerative disc disease L3-L4 through L5-S1 with suspected moderate narrowing of the foramen and possibly central canal at L3-L4. 2. 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 3. Consider MRI for further evaluation. Electronically authenticated by: SANDRA ROSSI Date: 05/07/2024 04:54
--- NOTE | 2024-05-04 | XR_ITS ---
The [address] [address] Patient Name: ARABELLA KNOTT MRN: [id number] date: 2005 Sex: F Assigned Patient Location: [facility] Current Patient Location: Accession/Order Number: [id number] Exam Date: 05/04/2024 17:10 Report Date: 05/07/2024 04:51 At the request of: MEIR DE GUZMAN Procedure: XR hip LT 2V w/ pelvis PROCEDURE: XR hip LT 2V w/ pelvis HISTORY: Pain of Left Hip M25.552, M54.5, M79.605 COMPARISON: XR hip left 07/11/2023 FINDINGS: BONES:No fracture, acute abnormality, or significant arthropathy. SOFT TISSUES:No visible soft tissue swelling. EFFUSION:None visible. OTHER: Negative. XR/XR hip LT 2V w/ pelvis IMPRESSION: 1. Normal appearance of the pelvis and hip joints. Electronically authenticated by: SANDRA ROSSI Date: 05/07/2024 04:51
--- OUTSIDE RECORDS SUMMARY | 2024-05-04 16:33 | XMS_ITS | CCD ---
Author Organization [facility] Care Team Providers Care [employer]ator Name Role Phone Melanie Major Unavailable Meir De Guzman Unavailable Meir De Guzman Unavailable Unavailable Unavailable DR MEIR DE GUZMAN Attending Unavailable WEST, DR TATE Valerio Consulting Unavailable DE GUZMAN, DR MEIR Hernandez Primary Care Unavailable DE GUZMAN, DR MEIR Hernandez Admitting Unavailable DE GUZMAN, DR MEIR Hernandez Consulting Unavailable MAURILIO JAMISON Attending Unavailable MAURILIO JAMISON Admitting Unavailable DE GUZMAN, DR MEIR Hernandez Primary Care Unavailable MAURILIO JAMISON Admitting Unavailable ZIEBER, DR SANDRA Stephens Consulting Unavailable DE GUZMAN, DR MEIR Hernandez Primary Care Unavailable MAURILIO JAMISON Attending Unavailable MAURILIO JAMISON Consulting Unavailable DE GUZMAN, DR MEIR Hernandez Attending Unavailable DE GUZMAN, DR MEIR Hernandez Consulting Unavailable DE GUZMAN, DR MEIR Hernandez Primary Care Unavailable DE GUZMAN, DR MEIR Hernandez Admitting Unavailable MISC, DR ALEXIS Admitting Unavailable DE GUZMAN, DR MEIR Hernandez Primary Care Unavailable MISC, DR ALEXIS Attending Unavailable MISC, DR ALEXIS Consulting Unavailable MD Meir De Guzman Primary Care Provider MD An Michaels Attending Provider MD Kylie Marc Referring Provider An Michaels Admitting Unavailable An Michaels Attending Unavailable Kylie Marc Referring Unavailable Meir De Guzman Primary Care Unavailable Monico, Dr. Espinal Attending Unavaila mehrdad De Guzman, Dr. Meir Taylor Primary Care MD AN Barrera Attending Unavailable Margarita, Dr. Meir Taylor Primary Care MD AN Barrera Referring Unavailable MD AN MICHAELS Referring Unavailable Margarita, Dr. Meir Taylor Primary Care UnaMD AN Romero Attending Unavailable MD AN MICHAELS Referring Unavailable MD AN MICHAELS Attending Unavailable De Guzman, Dr. Meir Taylor Primary Care MD AN Barrera Referring Unavailable MD AN MICHAELS Attending Unavailable Margarita, Dr. Meir Taylor Primary Care MD AN Barrera Referring Unavailable De Guzman, Dr. Meir Taylor Primary Care MD AN Barrera Attending Unavailable Meir De Guzman MD Primary Care Provider Unavailable Meir De Guzman MD Primary Care Provider Audra Fabian MD Unavailable An Michaels MD Unavailable Meir De Guzman MD Primary Care Provider Audra Fabian MD Unavailable AUDRA FABIAN Attending Unavailable MEIR DE GUZMAN Primary Care Unavailable RUI, AUDRA Hernandez Referring Unavailable MEIR DE GUZMAN Primary Care Unavailable RUI, AUDRA Hernandez Attending Unavailable RUI, AUDRA J Referring Unavailable MEIR DE GUZMAN Primary Care Unavailable RUI, AUDRA Hernandez Attending Unavailable MEIR DE GUZMAN Primary Care Unavailable Dani Middleton Attending Unavailable Dani Middleton Attending Unavailable CATHLEEN WOODS Attending Unavailable MEIR DE GUZMAN Primary Care Unavailable GIULIANO BAUMANN Attending Unavailable XAVIER HOOVER Attending Unavailable XAVIER HOOVER Referring Unavailable GIULIANO BAUMANN Attending Unavailable Meir De Guzman MD Primary Care Provider MEIR DE GUZMAN Primary Care Physician Allergies Allergy Classification Reported Allergen(s) Allergy Type Date of Onset Reaction(s) Facility (8 sources) cariprazine; Translations: [CARIPRAZINE] Drug Allergy 3 Other [facility] (1 source) No Known Medication Allergies; Translations: [No Known Medication Allergies] Propensity to adverse reactions (disorder) [facility] (2 sources) cariprazine Drug Allergy 4 Anaphylaxis [facility] Medications Current Medications Medication Drug Class(es) Dates Sig (Normalized) Sig (Original) acebutolol 200 mg oral capsule (20 sources) beta-Adrenergic Carmelina Start: 03-06-2023 End: 03-05-2024 take 1 capsule by mouth twice daily acebutolol (Sectral) 200 mg capsule Indications: Essential hypertension Take 1 capsule (200 mg) by mouth 2 times a day. 180 capsule 3 03/06/2023 03/05/2024 Active Start: 09-30-2022 take 1 capsule by mo uth once daily Acebutolol HCl - 200 MG Oral Capsule TAKE 1 CAPSULE EVERY 12 HOURS DAILY. Quantity: 60 Refills: 11 Ordered: 30-Sep-2022 An Michaels MD Start : 30-Sep-2022 Active new mg Start: 06-06-2022 take 400 mg by mouth twice daily Acebutolol Active 400 MG PO Twice daily August 17, 2022 12:00am take 1 capsule by mo ut every twenty-four hours Acebutolol HCl 400 MG 1 capsule Orally Once a day Active End: 03-06-2023 acebutolol (Sectral) 400 mg capsule Take 200 mg by mouth once daily. 0 03/06/2023 Discontinued (Therapy completed) amitriptyline hydrochloride 25 mg oral tablet (2 sources) Tricyclic Antidepressant Start: 01-03-2024 take 1 tablet by mouth once daily at bedtime amitriptyline (Elavil) 25 mg tablet Indications: Migraine with aura and without status migrainosus, not intractable Take 1 tablet (25 mg) by mouth once daily at bedtime. 30 tablet 5 01/03/2024 Active Start: 11-02-2023 End: 01-03-2024 take 1 tablet by mouth once daily at bedtime amitriptyline (Elavil) 25 mg tablet Indications: Migraine with aura and without status migrainosus, not intractable Take 1 tablet (25 mg) by mouth once daily at bedtime. 30 tablet 1 11/02/2023 01/03/2024 Discontinued (Reorder) 24 hr amphetamine aspartate 3.75 mg / amphetamine sulfate 3.75 mg / dextroamphetamine saccharate 3.75 mg / dextroamphetamine sulfate 3.75 mg extended release oral capsule (20 sources) Central Nervous System Stimulant Start: 08-17-2022 take 1 tablet by mouth once daily Dextroamphetamine-Amphetamine (Adderall) 15 mg Tablet Active 15 MG PO Daily August 17, 2022 12:00am Start: 05-09-2022 take 1 capsule by mo [facility] every twenty-four hours Adderall XR 15 MG [...] Orally bid for 7 days Jun, Active lamoTRIgine 25 mg oral tablet (2 sources) Mood Stabilizer, Anti-epileptic Agent take 1 tablet by mouth twice daily lamoTRIgine 25 MG 1 tablet Orally twice daily Active lisdexamfetamine dimesylate 30 mg oral capsule (7 sources) Central Nervous System Stimulant Start: 12-09-2022 End: 01-15-2024 Vyvanse 30 mg capsule Take 1 capsule (30 mg) by mouth if needed. 04/17/2023 Active Magnesium (3 sources) Magnesium 400 MG as directed Orally Active magnesium oxide 400 mg oral tablet (15 sources) Start: 12-22-2022 End: 08-18-2023 take 1 tablet by mouth in the morning MAGnesium-Oxide 400 (240 Mg) MG tablet Take 400 mg by mouth in the morning. 12/22/2022 Active Start: 07-11-2022 take 1 tablet by [facility] once daily Magnesium Oxide 400 MG Oral Tablet TAKE 1 TABLET DAILY. Quantity: 90 Refills: 3 Ordered: 11-Jul-2022 An Michaels MD Start : 11-Jul-2022 Active midodrine hydrochloride 5 mg oral tablet (13 sources) alpha-Adrenergic Agonist Start: 08-18-2023 End: 08-12-2024 take 1 tablet by mouth three times daily midodrine (Proamatine) 10 mg tablet Indications: Orthostatic hypotension Take 1 tablet (10 mg) by mouth 3 times a day. 270 tablet 3 08/18/2023 08/12/2024 Active Start: 05-05-2023 End: 10-17-2024 take 1 tablet by mouth three times daily midodrine (Proamatine) 5 mg tablet Indications: Orthostatic hypotension Take 1 tablet (5 mg) by mouth 3 times a day. 270 tablet 3 10/23/2023 10/17/2024 Active Start: 03-06-2023 End: 03-05-2024 take 1 tablet by mouth three times daily midodrine (Proamatine) 2.5 mg tablet Indications: Orthostatic hypotension Take 1 tablet (2.5 mg) by mouth 3 times a day. 270 tablet 3 03/06/2023 05/05/2023 Discontinued (Reorder) Start: 09-12-2022 take 1 tablet by edmund th every twelve hours Midodrine HCl 5 MG 1 tablet Orally Twice a day for 30 days Sep, Active ondansetron 4 mg disintegrating oral tablet (2 sources) Serotonin-3 Receptor Antagonist Start: 01-15-2024 End: 01-18-2024 take 1 tablet by mouth every eight hours for nausea ondansetron ODT (Zofran-ODT) 4 MG disintegrating tablet Indications: Nausea and vomiting, unspecified vomiting type Take 1 tablet (4 mg) by mouth every 8 (eight) hours if needed for nausea or vomiting for up to 3 days 15 tablet 01/15/2024 01/18/2024 Active sodium chloride 1000 mg oral tablet (2 sources) Start: 08-18-2023 End: 08-17-2024 take 0.5 tablet by mouth twice daily sodium chloride 1,000 mg tablet Indications: Orthostatic hypotension Take 0.5 tablets (0.5 g) by mouth 2 times a day. 90 tablet 3 08/18/2023 08/17/2024 Active Zofran ODT 4 mg Tab-Dis (1 source) Start: 12-22-2023 take 1 tablet by mouth every eight hours as needed for nausea Zofran ODT 4 mg Tab-Dis 4 mg = 1 tab(s), Oral, q8hr, PRN Nausea/Vomiting, # 12 tab(s), Refills(s) 0, Pharmacy: [facility]/pharmacy #[id number], 172.3, cm, 12/22/23 18:16:00 EDT, Height/Length Dosing, 132.7, kg, 12/22/23 18:16:00 EDT, Weight Dosing Start Date: 12/22/23 Status: Ordered Completed/Discontinued Medications Medication Drug Class(es) Dates Sig (Normalized) Sig (Original) amLODIPine 5 mg oral tablet (6 sources) Dihydropyridine Calcium Channel Carmelina take 1 tablet by mouth once daily [...] Not-Taking busPIRone hydrochloride 5 mg oral tablet (6 sources) Start: 03-22-2023 End: 08-18-2023 take 1 tablet by mouth once daily busPIRone (Buspar) 5 mg tablet Take 1 tablet (5 mg) by mouth once daily. 03/22/2023 08/18/2023 Discontinued (Med List Cleanup) Start: 10-24-2022 End: 01-15-2024 busPIRone (Buspar) 5 MG tabl et every 12 (twelve) hours 10/24/2022 01/15/2024 [facility]continued [facility] busPIRone HCl 5 MG 1 tablet Orally Twice a day Active escitalopram 5 mg oral tablet (2 sources) Serotonin Reuptake Inhibitor Start: 03-22-2023 End: 08-18-2023 take 1 tablet by mouth once daily escitalopram (Lexapro) 5 mg tablet Take 1 tablet (5 mg) by mouth once daily. 03/22/2023 08/18/2023 Discontinued (Med List Cleanup) hydrOXYzine pamoate 25 mg oral capsule (4 sources) Antihistamine Start: 10-24-2022 End: 01-15-2024 take 1 capsule by mouth twice daily as needed for anxiety hydrOXYzine pamoate (Vistaril) 25 MG capsule 1 capsule as needed Orally Twice a day for anxiety or sleep 10/24/2022 01/15/2024 Discontinued take 1 capsule by mo [facility] every twenty-four hours hydrOXYzine Pamoate 25 MG 1 capsule at bedtime as needed Orally Once a day as needed Active losartan potassium 25 mg oral tablet (2 sources) Angiotensin 2 Receptor Carmelina Start: 06-06-2022 take 1 tablet by mouth once daily Losartan Potassium 25 MG Oral Tablet TAKE 1 TABLET DAILY. Quantity: 90 Refills: 0 Ordered: 06-Jun-2022 An Michaels MD Start : 06-Jun-2022 Active new start/ stop Amlodipine meloxicam 15 mg oral tablet (20 sources) Nonsteroidal Anti-inflammatory Drug Start: 03-24-2022 End: 01-15-2024 take 1 tablet by mouth once daily meloxicam (Mobic) 15 mg tablet Take 1 tablet (15 mg) by mouth once daily. 03/24/2022 08/18/2023 Discontinued (Med List Cleanup) 24 hr metoprolol succinate 50 mg extended release oral tablet (12 sources) beta-Adrenergic Carmelina take 1 tablet by mouth every twenty-four [...] pain, left upper quadrant] Episodic Anxiety disorders (9 sources) Mixed anxiety and depressive disorder; Translations: [Other specified anxiety disorders] Onset: 04-12-2022 03-28-2023 Chronic Attention-deficit, conduct, and disruptive behavior disorders (9 sources) Attention deficit hyperactivity disorder, predominantly inattentive [...] Translations: [Unspecified essential hypertension] Onset: 06-20-2022 Chronic Headache; including migraine (4 sources) Migraine with aura, not intractable, without status migrainosus; Translations: [Migraine with aura] Onset: 11-02-2023 Chronic Menstrual disorders (14 sources) Abnormal menstrual cycle; Translations: [Unspecified disorders of menstruation and other abnormal bleeding from female genital tract] Chronic Mood disorders (11 sources) Mild recurrent major depression; Translations: [Major depressive disorder, recurrent, mild] Onset: 03-06-2023 03-06-2023 Chronic Nausea and vomiting (3 sources) Nausea and vomiting; Translations: [Nausea with vomiting, unspecified] Onset: 12-22-2023 01-15-2024 Episodic Nervous system congenital anomalies (4 sources) Disorder of autonomic nervous system; 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 Nutritional deficiencies (14 sources) Vitamin D deficiency; Translations: [Unspecified vitamin D deficiency] Chronic Other aftercare (13 sources) Treatment changed; Translations: [Long-term (current) use of other medications] Episodic Other circulatory disease (1 source) Orthostatic hypotension; Translations: [Orthostatic hypotension] Onset: 08-18-2023 Episodic Other nervous system disorders (14 sources) Disturbance of attention; Translations: [Attention or concentration deficit] Chronic Other nervous system disorders (3 sources) Chronotropic incompetence; Translations: [Unspecified disorder of autonomic nervous system] Chronic Other non-traumatic joint disorders (1 source) Pain in right hip Episodic Other nutritional; endocrine; and metabolic disorders (17 sources) Body mass index 40+ - severely [...] acanthosis nigricans] Episodic Other upper respiratory infections (5 sources) Acute maxillary sinusitis, unspecified; Translations: [Acute pansinusitis, unspecified] Onset: 12-22-2023 Episodic Otitis media and related conditions (14 [...] unspecified] Episodic Residual codes; unclassified (2 sources) Other specified health status; Translations: [Other specified health status] Onset: 08-18-2023 Episodic Transient cerebral ischemia (3 sources) Transient cerebral ischemia; Translations: [Transient cerebral ischemic attack, unspecified] Onset: 08-29-2017 03-28-2023 Chronic Viral infection (11 sources) Disease caused by 2019-nCoV; Translations: [Other specified viral infection] 01-15-2024 Episodic Past or Other Problems Problem Classification Problem Date Documented Date Episodic/Chronic Administrative/social admission (14 sources) Follow-up status; Translations: [Other specified counseling] Onset: 05-05-2023 05-05-2023 Episodic Allergic reactions (1 source) Urticaria, unspecified Onset: 11-18-2021 Resolved: 11-18-2021 Episodic Cardiac dysrhythmias (20 sources) Sinus tachycardia; Translations: [Other specified cardiac dysrhythmias] Onset: 06-27-2022 03-06-2023 Episodic Headache; including migraine (1 source) Chronic daily headache; Translations: [Chronic daily headache] Onset: 11-02-2023 11-02-2023 Episodic Other circulatory disease (6 sources) Orthostatic hypotension; Translations: [Orthostatic hypotension] Onset: 08-18-2023 03-06-2023 Episodic Other connective tissue disease (4 [...] [PAIN IN RIGHT ANKLE] Onset: 12-21-2021 Episodic Other non-traumatic joint disorders (1 source) Joint pain; Translations: [Pain in unspecified joint] Onset: 11-02-2023 11-02-2023 Episodic Other non-traumatic joint disorders (1 source) Hypermobility of joint; Translations: [Joint derangement, unspecified] Onset: 11-02-2023 11-02-2023 Episodic Residual codes; unclassified (3 sources) Never smoked tobacco; Translations: [Other specified health status] Onset: 08-18-2023 08-18-2023 Episodic Residual codes; unclassified (1 source) Staring; Translations: [Transient alteration of awareness] Onset: 11-02-2023 11-02-2023 Episodic Syncope (20 sources) Near syncope; Translations: [Syncope and collapse] Onset: 03-25-2022 Resolved: 03-06-2023 Episodic Unclassified (14 sources) Regurgitation; Translations: [Regurgitation] Unclassified (4 sources) Onset: 03-06-2023 Resolved: 11-02-2023 03-06-2023 Results Test Name Value Interpretation Reference Range Facility Laboratory - Microbiology an d Antimicrobial susceptibilityon 01-15-2024 SARS-CoV-2 (COVID-19) RNA PARRISH+probe Ql (Unsp spec) Positive [facility] No Panel Informationon 01-14 FLU A Negative [facility] FLU B Negative [facility] Interpretation and review of laboratory results Abnormal [facility] S. pyogenes DNA PARRISH+probe No m (Unsp spec)on 01-15-2024 Interpretation and review of laboratory results Normal [facility] RESULT Negative [facility] ED Note-Physicianon 12-25-19 ED Note-Physician ED Note-Physician Basic Information Time Seen: Shasha Ambrocio PA-C PamJohnny 12/22/2023 18:10 Chief Complaint sore throat and fevers. tachycardia History of Present Illness Patient is a 18-year-old female with a history of POTS and vasovagal syncope presenting with sore throat, nausea, nasal congestion and bodyaches that began 1 day ago. Patient has recently been exposed to COVID-19. Patient states that she is currently being treated for POTS, and when she is sick she notices tachycardia and hypertension. Patient has been taking her medication as prescribed. She denies a fever, cough, chest pain, shortness of breath, abdominal pain, or any other complaints. Review of Systems A 10 point review of systems is negative except as noted above. Medical and Surgical History: Reviewed and noted Social history: Lives at home Family History: Reviewed. Tobacco: Denies Physical Exam Vitals & Measurements T: 37 ?C(Oral) HR: 133(Peripheral) RR: 18 BP: 147/111 SpO2: 100% HT: 172.27 cm WT: 132.7 kg BMI: 44.71 General: The patient appears well and in no apparent distress. Patient is resting comfortably on cart. Skin: Warm, dry, no pallor noted. Head: Normocephalic, atraumatic Neck: No JVD Eye: PERRLA, EOMI ENT: Moist mucous membranes. Mild posterior pharyngeal erythema no exudate swelling shift or mass. No trisumus no stridor. Tympanic membranes unremarkable bilaterally no injection erythema no posterior effusions perforation or pus. Cardiovascular: Tachycardic, normal peripheral perfusion Respiratory: Lungs clear to auscultation bilaterally, no respiratory distress no accessory muscle use no obvious audible wheezing Chest Wall: no deformity Musculoskeletal: normal ROM, no deformity, no swelling GI: Soft no obvious distention. No rebound or rigidity. No guarding. No tenderness. Neurological: A&O moves all extremities equal strength and symmetry Psychiatric: Cooperative and appropriate Medical Decision Making Patient is a 18-year-old female with a history of POTS and vasovagal syncope presenting with sore throat that began 1 day ago. On arrival patient has a heart rate of 147/111 and a heart rate of 133. Patient was given Zofran while in the ED. Lab work is reviewed. Patient has a WBC of 15, likely due to an upper respiratory infection and viral pharyngitis. COVID and strep swabs are negative. Urinalysis is negative for urinary tract infection. While in the ED the patient's heart rate improved to 121. She continued to deny chest pain or shortness of breath. I offered medication for the tachycardia and hypertension, however the patient denied this. she states it is typical for her to develop tachycardia and fluctuating blood pressure when she is sick. Patient was given strict return precautions. She will continue to monitor her blood pressure and heart rate at home. Patient was able to tolerate fluids while in the ED. She will follow-up with her field service consultant in the next 2 to 3 days. She was advised to return to the ED with any new or worsening symptoms. Patient and mother are agreeable with the plan and all questions were answered. Assessment/Plan Acute URI (J06.9: Acute upper respiratory infection, unspecified) Nausea (R11.0: Nausea) Tachycardia (R00.0: Tachycardia, unspecified) Orders: ondansetron, 4 mg = 1 tab(s), Oral, q8hr, PRN Nausea/Vomiting, # 12 tab(s), Refills(s) 0, Pharmacy: [facility]/pharmacy #[id number], 172.3, cm, 12/22/23 18:16:00 EDT, Height/Length Dosing, 132.7, kg, 12/22/23 18:16:00 EDT, Weight Dosing Basic Metabolic Panel CBC w/ Auto Diff ED Cardiac Monitoring eGFR Extra SST Tube Group A Strep by PCR Oxygen Saturation Oxygen Therapy PT & PTT Rapid [place] [place] Rapid Strep w/rfx Saline Lock Insert Troponin 0 Hr. UA with Cult Rflx XR Chest Single View Disposition Plan Patient Discharge Condition Stable Discharge Disposition Home Discharge Prescription List Prescriptions Zofran ODT 4 mg Tab-Dis, 4 mg= 1 tab(s), Oral, q8hr, PRN Follow-up With When Contact Information Reese Hart In 3 days 12/25/2023 EDT [address] [place] [address] [phone] Business (1) Additional Instructions: Call to schedule a follow-up appointment with your field service consultant for further management of care of the tachycardia. Use the Zofran as needed for nausea. Return to the ED for for any new or worsening symptoms. MEIR DE GUZMAN In 3 days [address] [place] [address]- Business (1) Additional Instructions: Patient Education Upper Respiratory Infection, Adult, [id number] Attestation Patient seen and evaluated by the physician purchasing assistant. Attending physician was present in the emergency department and supervised care. This visit was performed by both the physician and an APC. I performed all aspects of the MDM as documented. This report was transcribed using voice recognition software. Every effort was made to ensure accuracy, however, inadvertently computerized windows phone developer mist (more content not included)... Normal [facility] Comment on above: Result Comment: Elec tronically Signed By: Dani Middleton DO\.br\Date and Time Signed: 12/25/23 07:02 EDT\.br\Electronically Co-Signed By: Shasha Ambrocio PA-C\.br\Date and Time Co-Signed: 12/23/23 00:07 EDT Grp A Strp PCRon 12-23-2023 Grp A Strp Intrl Ctrl Pass Normal [facility] Comment on above: Order Comment: Order Added on by Discern Rule. Performed By: #### 1 [id number] #### [facility] [address] [place] [address] S. pyogenes DNA PARRISH+probe Ql (Throat) Negative Normal [facility] Comment on above: Order Comment: Order Added on by Discern Rule. Result Comment: Test ing performed using DNA amplification. Performed By: #### 1 [id number] #### [facility] [address] [place] [address] XR Chest Single Viewon 12-22 XR Chest Single View Exam Date/Time: 12/22/2023 18:46 EDT Reason for Exam: Chest pain Report IMPRESSION: NO RADIOGRAPHIC EVIDENCE OF ACUTE INTRATHORACIC PROCESS. EXAM: XR Chest Single View History: Chest pain Technique: Portable AP view of the chest. Comparison: None available Findings: The cardiomediastinal silhouette is within normal limits. No pneumothorax, pleural effusion, or consolidation. No acute osseous abnormality. Ordering Provider: Shasha Ambrocio FINAL REPORT Dictated: 12/23/2023 8:02 am Scot Davalos DO Signed (Electronic Signature): 12/23/2023 8:02 am Signed by: Scot Davalos DO Transcribed by: VIN Technologist: ROSA Technical Comments Radiation Dose: Ka,r in mGy = na DAP = na Normal [facility] BMPon 12-22-2023 Anion gap [Moles/Vol] 13 mmol/L Normal 6-16 [facility] Comment on above: Performed By: #### [id number] #### [facility] [address] [place] [address] Calcium [Mass/Vol] 9.0 mg/dL Normal 8.9-11.1 [facility] Comment on above: Performed By: #### 2 [id number] #### [facility] [address] [place] [address] Chloride [Moles/Vol] 105 mmol/L Normal 101-111 [facility] Comment on above: Performed By: #### 2 [id number] #### [facility] [address] [place] [address] CO2 [Moles/Vol] 25 mmol/L Normal 21-31 [facility] Comment on above: Performed By: #### 2 [id number] #### [facility] [address] [place] [address] Creatinine [Mass/Vol] 0.6 mg/dL Normal 0.5-1.3 [facility] Comment on above: Performed By: #### 2 [id number] #### [facility] [address] [place] [address] Glucose [Mass/Vol] 95 mg/dL Normal 55-199 [facility] Comment on above: Performed By: #### 2 [id number] #### [facility] [address] [place] [address] Potassium [Moles/Vol] 3.9 mmol/L Normal 3.5-5.3 [facility] Comment on above: Performed By: #### 2 [id number] #### [facility] [address] [place] [address] Sodium [Moles/Vol] 139 mmol/L Normal 135-145 [facility] Comment on above: Performed By: #### 2 [id number] #### [facility] [address] [place] [address] Urea nitrogen [Mass/Vol] 8 mg/dL Normal 5-21 [facility] Comment on above: Performed By: #### 2 [id number] #### [facility] [address] [place] [address] Urea nitrogen/Creatinine [Mass ratio] 13 No Units Normal 10-20 [facility] Comment on above: Performed By: #### 2 [id number] #### [facility] [address] [place] [address] CBC w/ Auto Diffon 4 Basophils/100 WBC (Bld) 0.5 % Normal 0.0-2.0 [facility] Comment on above: Performed By: #### 2 [id number] #### [facility] [address] [place] [address] Basophils/Leukocytes Auto (Bld) [Pure # fraction] 0.1 E9/L Normal 0.0-0.2 [facility] Comment on above: Performed By: #### 2 [id number] #### [facility] [address] [place] [address] Eosinophils (Bld) [#/Vol] 0.1 E9/L Normal 0.0-0.5 [facility] Comment on above: Performed By: #### 2 [id number] #### [facility] [address] [place] [address] Eosinophils/100 WBC (Bld) 0.4 % Normal 0.0-8.0 [facility] Comment on above: Performed By: #### 2 [id number] #### [facility] [address] [place] [address] Erythrocyte distribution width (RBC) [Ratio] 13.3 % Normal 10.9-14.2 [facility] Comment on above: Performed By: #### 2 [id number] #### [facility] [address] [place] [address] Hematocrit (Bld) [Volume fraction] 39.2 % Normal 34.0-46.0 [facility] Comment on above: Performed By: #### 2 [id number] #### [facility] [address] [place] [address] Hemoglobin (Bld) [Mass/Vol] 14.1 g/dL Normal 12.0-16.0 [facility] Comment on above: Performed By: #### 2 [id number] #### [facility] [address] [place] [address] Lymphocytes (Bld) [#/Vol] 2.7 E9/L Normal 1.0-4.0 [facility] Comment on above: Performed By: #### 2 [id number] #### [facility] [address] [place] [address] Lymphocytes/100 WBC (Bld) 18.0 % Normal 14.0-50.0 [facility] Comment on above: Performed By: #### 2 [id number] #### [facility] [address] [place] [address] MCH (RBC) [Entitic mass] 29.7 pg Normal 27.0-34.0 [facility] Comment on above: Performed By: #### 2 [id number] #### [facility] [address] [place] [address] MCHC (RBC) [Mass/Vol] 35.8 g/dL Normal 31.4-36.0 [facility] Comment on above: Performed By: #### 2 [id number] #### [facility] [address] [place] [address] MCV (RBC) [Entitic vol] 82.8 fL Normal 80.0-100.0 [facility] Comment on above: Performed By: #### 2 [id number] #### [facility] [address] [place] [address] Monocytes (Bld) [#/Vol] 0.8 E9/L Normal 0.2-1.0 [facility] Comment on above: Performed By: #### 2 [id number] #### [facility] [address] [place] [address] Neutrophils (Bld) [#/Vol] 11.4 E9/L High 2.0-7.5 [facility] Comment on above: Performed By: #### 2 [id number] #### [facility] [address] [place] [address] Neutrophils/100 WBC (Bld) 75.6 % High 36.0-75.0 [facility] Comment on above: Performed By: #### 2 [id number] #### [facility] [address] [place] [address] Platelet 322.0 E9/L Normal 150.0-500.0 [facility] Comment on above: Performed By: #### 2 [id number] #### [facility] [address] [place] [address] Platelet mean volume (Bld) [Entitic vol] 7.5 fL Normal 6.4-10.8 [facility] Comment on above: Performed By: #### 2 [id number] #### [facility] [address] [place] [address] RBC (Bld) [#/Vol] 4.7 E12/L Normal 4.3-5.9 [facility] Comment on above: Performed By: #### 2 [id number] #### [facility] [address] [place] [address] WBC corrected for nucl RBC Auto (Bld) [#/Vol] 15.0 E9/L High 4.0-11.0 [facility] Comment on above: Result Comment: Cally pheral smear review performed. Performed By: #### 2 [id number] #### [facility] [address] [place] [address] CHEMISTRYOrdered By: SYSTEM SYSTEM on 12-22-2023 Anion gap [Moles/Vol] 13 mmol/L Normal 6 - 16 mEq/L R emisol Chem Calcium [Mass/Vol] 9.0 mg/dL Normal 8.9 - 11. 1 mg/dL Remisol Chem Chloride [Moles/Vol] 105 mmol/L Normal 101 - 1 11 mmol/L Remisol Chem CO2 [Moles/Vol] 25 mmol/L Normal 21 - 31 mmol/L Remisol Chem Creatinine [Mass/Vol] 0.6 mg/dL Normal 0.5 - 1.3 mg/dL Remisol Chem eGFR 131 mL/min/1.73 m2 Normal >=59mL/mi n/1 .73 m2 Remisol Chem Glucose [Mass/Vol] 95 mg/dL Normal 55 - 199 mg/dL Remisol Chem Potassium [Moles/Vol] 3.9 mmol/L Normal 3.5 - 5.3 mmol/L Remisol Chem Sodium [Moles/Vol] 139 mmol/L Normal 135 - 145 mmol/L Remisol Chem Troponin HS pg/mL Low 10.10 - 27.10 pg/mL [facility] Chem Comment on above: Interpretive Data: T he 95% CI (Confidence Interval) PPV (Positive Predictive Value) for myocardial infarction in females is 38 pg/mL, in males 51 pg/mL. The results should be used in conjunction with clinical conditions of myocardial infarction. (Access High Sensitivity Troponin I Instructions For Use, Sandra Cesar, November 2017) Urea nitrogen [Mass/Vol] 8 mg/dL Normal 5 - 21 mg/dL Remisol Chem Urea nitrogen/Creatinine [Mass ratio] 13 mg/mg Normal 10 - 20 Rem[facility] Chem COAGULATIONOrdered By: Jed Bentley on 12-22-2023 aPTT Coag (PPP) [Time] 33.1 s Normal 25.1 - 36.5 second(s) [facility] Comment on above: Interpretive Data: Jermain zheng 15 days - 4 weeks 1 - 5 months 6 - 11 months 1 - 5 years 6 - 10 years 11 - 17 years PTT Mean: 35.4 (27.6-45.6) Mean: 33.5 (24.8-40.7) Mean: 32.4 (25.1-40.7) Mean: 31.6 (24.0-39.2) Mean: 31.6 (26.9-38.7) Mean: 31.0 (24.6-38.4) Pediatric Reference ranges were obtained from a study by isauro Mayo al. prepared from 1437 samples obtained at 7 different centers using the same coagulation reagent and instrumentation as [facility]. Currently there are no coagulation studies available worldwide for children to 14 days, and no normal ranges. Heparin therapeutic range (represented by Anti-Factor Xa activity of 0.2 - 0.4 U/mL) corresponds to PTT of 56.6 - 109.0 sec. INR Coag (PPP) [Relative time] 1.02 {INR} Invalid Interpretation Code [facility] Comment on above: Interpretive Data: I NR results are specifically intended to assess patients stabilized on long-term Anticoagulation therapy suggested INR s Less Intensive Anticoagulation 2.0 3.0 Conventional Range 3.0 4.5 PT Coag (PPP) [Time] 11.4 s Normal 9.4 - 1 2.5 second(s) [facility] Comment on above: Interpretive Data: 1 5 days - 4 weeks 1 - 5 months 6 -11 months 1 5 years 6 10 years 11 -17 years Mean: 11.2 (9.5 12.6) Mean: 11.0 (9.7 12.8) Mean: 11.0 (9.8 13.0) Mean: 11.3 (9.9 13.4) Mean: 11.7 (10.0 14.6) Mean: 11.8 (10.0 - 14.1) Pediatric Reference ranges were obtained from a study by isauro Mayo al. prepared from 1437 samples obtained at 7 different centers using the same coagulation reagent and instrumentation as [facility]. Currently there are no coagulation studies available worldwide for children to 14 days, and no normal ranges. ED Clinical Summaryon 2023 ED Clinical Summary ED Clinical Summary [address] [address] ED Clinical Summary Person Information Name: ARABELLA KNOTT [place] Age: 18 Years : 2005 Sex: Female Language: Sinhala PCP: MEIR DE GUZMAN MD Marital Status: Single Visit Id: Visit Reason: Throat pain - Adult; Tachycardia; NAUSA/FAST HEART/SORE THROAR EARS,ACHE Speciality: Acuity: 3 Enc Type: Emergency Med Service: Emergency Arrival: 12/22/2023 18:01:08 Discharge: 12/22/2023 21:18:58 LOS: 000 03:17 Checkin: 12/22/2023 18:01:08 Checkout: 12/22/2023 21:18:58 Dispo Type: Home (Routine DC) EVENTS: Event Name Event Status Request Date/Time Start Date/Time Complete Date/Time Arrive Complete 12/22/2023 18:01:08 12/22/2023 18:01:08 12/22/2023 18:01:08 Document Home Meds Request 12/22/2023 18:01:08 Triage Complete 12/22/2023 18:01:08 12/22/2023 18:16:40 12/22/2023 18:16:40 Bed Assign Complete 12/22/2023 18:08:56 12/22/2023 18:08:56 12/22/2023 18:08:56 Dr Exam Complete 12/22/2023 18:08:56 12/22/2023 18:10:02 12/22/2023 18:10:02 RN Exam Complete 12/22/2023 18:08:56 12/22/2023 19:04:42 12/22/2023 19:04:42 Registration Complete 12/22/2023 18:10:02 12/22/2023 18:17:41 12/22/2023 18:26:26 Dr Exam Complete 12/22/2023 18:10:56 12/22/2023 18:10:56 12/22/2023 18:10:56 Dr Exam Complete 12/22/2023 18:12:46 12/22/2023 18:12:46 12/22/2023 18:12:46 EKG Complete 12/22/2023 18:15:15 12/22/2023 18:47:17 Reg Complete Request 12/22/2023 18:26:26 Reg Bed Request Complete 12/22/2023 18:26:26 12/22/2023 18:26:26 12/22/2023 18:26:26 Pending Labs Complete 12/22/2023 18:35:58 12/22/2023 19:46:12 Lab Complete 12/22/2023 18:35:58 12/22/2023 19:46:12 Patient Care Request 12/22/2023 18:35:58 RT Request 12/22/2023 18:35:58 X-Ray Complete 12/22/2023 18:35:58 12/22/2023 18:43:51 12/22/2023 18:46:44 Wet Read Complete 12/22/2023 18:46:44 12/22/2023 18:48:40 12/22/2023 18:48:40 Pending Labs Complete 12/22/2023 19:02:00 12/22/2023 19:02:00 12/22/2023 19:32:23 Lab Complete 12/22/2023 19:02:00 12/22/2023 19:02:00 12/22/2023 19:32:23 Pending Labs Inlab 12/22/2023 19:12:20 12/22/2023 19:12:20 Pending Labs Complete 12/22/2023 19:23:48 12/22/2023 19:23:48 12/22/2023 19:23:48 Meds Admin Complete 12/22/2023 19:53:04 12/22/2023 20:03:35 Pending Labs Complete 12/22/2023 20:02:16 12/22/2023 21:03:30 Discharge Complete 12/22/2023 21:14:28 12/22/2023 21:19:02 12/22/2023 21:19:02 Transfer Complete 12/22/2023 21:19:02 12/22/2023 21:19:02 12/22/2023 21:19:02 ADDRESS: [address] [place] [phone] PHYS DOC NOTES: MEDICAL INFORMATION: Prescriptions Given: New Medications [id number], [address], [place] [id number], [phone] ondansetron (Zofran ODT 4 mg Tab-Dis) 1 Tablets By Mouth every 8 hours as needed Nausea/Vomiting. Refills: 0. PATIENT EDUCATION INFORMATION: Instructions: Upper Respiratory Infection, Adult, [id number] Follow up: With: Address: When: Reese Hart [address] [place] [phone] [facility] (1) In 3 days 12/25/2023 Comments: Call to schedule a follow-up appointment with your field service consultant for further management of care of the tachycardia. Use the Zofran as needed for nausea. Return to the ED for for any new or worsening symptoms. With: Address: When: MEIR DE GUZMAN [address] [place], [place] [id number] Business (1) In 3 days DIAGNOSIS: Acute URI; Nausea; Tachycardia Normal [facility] ED Patient Summaryon 024 ED Patient Summary ED Patient Summary [place] [id number] Patient Discharge Instructions Person Information Name: ARABELLA KNOTT Age: 18 Years Arrival Date: 12/22/2023 18:01:08 Discharge Diagnosis: Acute URI; Nausea; Tachycardia Primary Care Physician: MEIR DE GUZMAN MD Provider Information Primary Provider: Dani Middleton DO Advanced Adobe Maker:Shasha Ambrocio PA-C The exam and treatment you received in the Emergency Department were for an urgent problem and are not intended as complete care. It is important that you follow up with a doctor, nurse practitioner, or physician?s purchasing assistant for ongoing care. If your symptoms become worse or you do not improve as expected and you are unable to reach your usual health care provider, you should return to the Emergency Department. We are available 24 hours a day. ARABELLA KNOTT has been given the following list of patient education materials, prescriptions and follow-up instructions: Follow-up Instructions: With: Address: When: Reese Hart [address] [place] [phone] Business (1) In 3 days 12/25/2023 Comments: Call to schedule a follow-up appointment with your field service consultant for further management of care of the tachycardia. Use the Zofran as needed for nausea. Return to the ED for for any new or worsening symptoms. With: Address: When: MEIR DE GUZMAN [facility] [place] [address] Business (1) In 3 days In the event that this physician does not participate in your insurance network, please consult with your insurance company to find a nearby participating provider. Patient Education Materials: Upper Respiratory Infection, Adult, Nidv-fz-Cjux A MESSAGE TO ALL PATIENTS REGARDING OPIOIDS PRESCRIPTION OPIOIDS: WHAT YOU NEED TO KNOW Prescription opioids can be used to help relieve emantfuy-od-irtibk pain and are often prescribed following a surgery or injury, or for certain health conditions. These medications can be an important part of the treatment but also come with serious risks. It is important to work with your healthcare provider to make sure you are getting the safest, most effective care. WHAT ARE THE RISKS AND SIDE EFFECTS OF OPIOID USE? Prescription opioids carry serious risks of addiction and overdose, especially with prolonged use. An opioid overdose, often marked by slowed breathing, can cause sudden . The use of prescription opioids can have a number of side effects as well, even when taken as directed: ? Tolerance?meaning you might need to take more of the medication for the same pain relief ? Physical dependence?meaning you have symptoms of withdrawal when a medication is stopped ? Increased sensitivity to pain ? Constipation ? Nausea, vomiting, and dry mouth ? Sleepiness and dizziness ? Confusion ? Depression ? Low levels of testosterone that can result in lower sex drive, energy, and strength ? Itching and sweating RISKS ARE GREATER WITH: ? History of drug misuse, substance use disorder, or overdose ? Mental health conditions (such as depression or anxiety) ? Sleep apnea ? Older age (65 years and older) ? Avoid alcohol while taking prescription opioids. Also, unless specifically advised by your health care provider, medications to avoid include: ? Benzodiazepines (such as Xanax or Valium) ? Muscle relaxants (such as Soma or Flexeril) ? Hypnotics (such as Ambien or Lunesta) ? Other prescription opioids KNOW YOUR OPTIONS Talk to your health care provider about ways to manage your pain that don?t involve prescription opioids. Some of these options may actually work better and have fewer risks and side effects. Options may include: ? Pain relievers such as acetaminophen, ibuprofen, and naproxen ? Some medication that are also used for depression or seizures ? Physical therapy and exercise ? Cognitive behavioral therapy, a psychological, goal-directed approach, in which patients learn how to modify physical, behavioral, and emotional triggers of pain and stress. IF YOU ARE PRESCRIBED OPIOIDS FOR PAIN: ? Never take opioids in greater amounts or more often than prescribed. ? Follow up with your primary health care provider. o Work together to create a plan on how to manage your pain. o Talk about ways to help manage your pain that don?t involve prescription opioids. o Talk about any and all concerns and side effects. ? Help prevent misuse and abuse o Never sell or share prescription opioids. o Never use another person?s prescription opioids. ? Store prescription opioids in a secure place and out of reach of others (this may include visitors, children, friends, and family). ? Safely dispose of unused prescription opioids: Find your community drug take-back program or your pharmacy mail-back program, or flush them do (more content not included)... Normal [facility] HEMATOLOGYOrdered By: SYSTEM SYSTEM on 12-22-2023 Basophils/100 WBC (Bld) 0.5 % Normal 0.0 - 2.0 % Remisol Heme Basophils/Leukocytes Auto (Bld) [Pure # fraction] 0.1 E9/L Normal 0.0 - 0.2 E9/L Remisol Heme Eosinophils (Bld) [#/Vol] 0.1 E9/L Normal 0.0 - 0.5 E9/L Remisol Heme Eosinophils/100 WBC (Bld) 0.4 % Normal 0.0 - 8.0 % Remisol Heme Erythrocyte distribution width (RBC) [Ratio] 13.3 % Normal 10.9 - 14.2 % Remisol Heme Hematocrit (Bld) [Volume fraction] 39.2 % Normal 34.0 - 46.0 % Remisol Heme Hemoglobin (Bld) [Mass/Vol] 14.1 g/dL Normal 12.0 - 16.0 gm/dL Remisol Heme Lymphocytes (Bld) [#/Vol] 2.7 E9/L Normal 1.0 - 4.0 E9/L Remisol Heme Lymphocytes/100 WBC (Bld) 18.0 % Normal 14.0 - 50.0 % Remisol Heme MCH (RBC) [Entitic mass] 29.7 pg Normal 27.0 - 34.0 pg Remisol Heme MCHC (RBC) [Mass/Vol] 35.8 g/dL Normal 31.4 - 36.0 gm/dL Remisol Heme MCV (RBC) [Entitic vol] 82.8 fL Normal 80.0 - 100.0 fL Remisol Heme Monocytes (Bld) [#/Vol] 0.8 E9/L Normal 0.2 - 1.0 E9/L Remisol Heme Monocytes/100 WBC (Bld) 5.5 % Normal 4.0 - 14.0 % Remisol Heme Neutrophils (Bld) [#/Vol] 11.4 E9/L High 2.0 - 7.5 E9/L Remisol Heme Neutrophils/100 WBC (Bld) 75.6 % High 36.0 - 75.0 % Remisol Heme Platelet 322.0 E9/L Normal 150.0 - 500.0 E9/L Remisol Heme Platelet mean volume (Bld) [Entitic vol] 7.5 fL Normal 6.4 - 10.8 fL Remisol Heme RBC (Bld) [#/Vol] 4.7 E12/L Normal 4.3 - 5.9 E12/L Remisol Heme WBC corrected for nucl RBC Auto (Bld) [#/Vol] 15.0 E9/L High 4.0 - 11.0 E9/L Remisol Heme Comment on above: Result Comment: Cally pheral smear review performed. MICRO OTHER TESTSOrdered By: Lisbeth Longoria on 12-22-2023 Rapid COV Int NEG Ctl Pass (12/22/23 6:58 PM) Normal [facility] Sero Rapid COV Int POS Ctl Pass (12/22/23 6:58 PM) Normal [facility] Sero S. pyogenes Ag IA.rapid Ql (Throat) Negative (12/22/23 6:58 PM) Normal Negative [facility] Man Sero SARS-CoV+SARS-CoV-2 (COVID-19) Ag IA.rapid Ql (Resp) Not Detected 7 (12/22/23 6:58 PM) Normal Not Detected [facility] Comment on above: Interpretive Data: T demarcus MyBeautyCompare Veritor System for Rapid Detection of SARS-CoV-2 is a chromatographic digital immunoassay intended for the direct and qualitative detection of SARS-CoV-2 nucleocapsid antigens in nasal swabs from individuals who are suspected of COVID-19 by their healthcare provider within the first five days of the onset of symptoms. Negative results should be treated as presumptive, do not rule out SARS-CoV-2 infection and should not be used as the sole basis for treatment or patient management decisions, including infection control decisions. Negative results should be considered in the context of a patient s recent exposures, history and the presence of clinical signs and symptoms consistent with COVID-19, and confirmed with a molecular assay, if necessary, for patient management. For in vitro diagnostic use. In the [place], only for use under an Emergency Use Authorization. In the [place], this test has not been FDA cleared or approved; this test has been authorized by FDA under an EUA for use by authorized laboratories; use by laboratories certified under the CLIA, 42 U.S.C. 263a, that meet requirements to perform moderate, high, or waived complexity tests and at the Point of Care (POC), i.e., in patient care settings operating under a CLIA Certificate of Waiver, Certificate of Compliance, or Certificate of Accreditation. This test has been authorized only for the detection of proteins from SARS-CoV-2, not for any other viruses or pathogens; and, in the [place], this test is only authorized for the duration of the declaration that circumstances exist justifying the authorization of emergency use of in vitro diagnostics for detection and/or diagnosis of the virus that causes COVID-19 under Section 564(b)(1) of the Act, 21 U.S.C. 360bbb-3(b)(1), unless the authorization is terminated or revoked sooner. PT & PTTon 12-22-2023 aPTT Coag (PPP) [Time] 33.1 second(s) Normal 25.1-36.5 [facility] Comment on above: Result Comment: Para meter 15 days - 4 weeks 1 - 5 months 6 - 11 months 1 - 5 years 6 - 10 years 11 - 17 years PTT Mean: 35.4 (27.6-45.6) Mean: 33.5 (24.8-40.7) Mean: 32.4 (25.1-40.7) Mean: 31.6 (24.0-39.2) Mean: 31.6 (26.9-38.7) Mean: 31.0 (24.6-38.4) Pediatric Reference ranges were obtained from a study by isauro Mayo al. prepared from 1437 samples obtained at 7 different centers using the same coagulation reagent and instrumentation as [facility]. Currently there are no coagulation studies available worldwide for children to 14 days, and no normal ranges. Heparin therapeutic range (represented by Anti-Factor Xa activity of 0.2 - 0.4 U/mL) corresponds to PTT of 56.6 - 109.0 sec. Performed By: #### 1 [id number] #### [facility] [address] [place] [address] INR Coag (PPP) [Relative time] 1.02 {INR} Invalid Interpretation Code [facility] Comment on above: Result Comment: INR results are specifically intended to assess patients stabilized on long-term Anticoagulation therapy suggested INR?s ?Less Intensive Anticoagulation? 2.0 ? 3.0 Conventional Range 3.0 ? 4.5 Performed By: #### 1 [id number] #### [facility] [address] [place] [address] PT Coag (PPP) [Time] 11.4 second(s) Normal 9.4-12.5 [facility] Comment on above: Result Comment: 15 d ays - 4 weeks 1 - 5 months 6 -11 months 1 ? 5 years 6 ? 10 years 11 -17 years Mean: 11.2 (9.5 ? 12.6) Mean: 11.0 (9.7 ? 12.8) Mean: 11.0 (9.8 ? 13.0) Mean: 11.3 (9.9 ? 13.4) Mean: 11.7 (10.0 ? 14.6) Mean: 11.8 (10.0 - 14.1) Pediatric Reference ranges were obtained from a study by isauro Mayo al. prepared from 1437 samples obtained at 7 different centers using the same coagulation reagent and instrumentation as [facility]. Currently there are no coagulation studies available worldwide for children to 14 days, and no normal ranges. Performed By: #### 1 [id number] #### [facility] [address] [place] [address] Rapid COVID Antigen ([facility])on 12-22-2023 Rapid COV Int NEG Ctl Pass Normal Fis [facility] Comment on above: Performed By: #### 2 [id number] #### [facility] [address] [place] [address] Rapid COV Int POS Ctl Pass Normal [facility] Comment on above: Performed By: #### 2 [id number] #### [facility] [address] [place] [address] SARS-CoV+SARS-CoV-2 (COVID-19) Ag IA.rapid Ql (Resp) Not detected Normal Not Detected [facility] Comment on above: Result Comment: The [employer]? System for Rapid Detection of SARS-CoV-2 is a chromatographic digital immunoassay intended for the direct and qualitative detection of SARS-CoV-2 nucleocapsid antigens in nasal swabs from individuals who are suspected of COVID-19 by their healthcare provider within the first five days of the onset of symptoms. Negative results should be treated as presumptive, do not rule out SARS-CoV-2 infection and should not be used as the sole basis for treatment or patient management decisions, including infection control decisions. Negative results should be considered in the context of a patient?s recent exposures, history and the presence of clinical signs and symptoms consistent with COVID-19, and confirmed with a molecular assay, if necessary, for patient management. For in vitro diagnostic use. In the [place], only for use under an Emergency Use Authorization. In the [place], this test has not been FDA cleared or approved; this test has been authorized by FDA under an EUA for use by authorized laboratories; use by laboratories certified under the CLIA, 42 U.S.C. ?263a, that meet requirements to perform moderate, high, or waived complexity tests and at the Point of Care (POC), i.e., in patient care settings operating under a CLIA Certificate of Waiver, Certificate of Compliance, or Certificate of Accreditation. This test has been authorized only for the detection of proteins from SARS-CoV-2, not for any other viruses or pathogens; and, in the [place], this test is only authorized for the duration of the declaration that circumstances exist justifying the authorization of emergency use of in vitro diagnostics for detection and/or diagnosis of the virus that causes COVID-19 under Section 564(b)(1) of the Act, 21 U.S.C. ? 360bbb-3(b)(1), unless the authorization is terminated or revoked sooner. Performed By: #### 2 [id number] #### [facility] [address] [place] [address] Rapid Strep w/rfxon 12-22-19 24 S. pyogenes Ag IA.rapid Ql (Throat) Negative Normal Negative [facility] [facility] Comment on above: Performed By: #### 2 [id number] #### [facility] [address] [id number] Troponin 0 Hr.on 12-22-2023 Troponin HS <2.30 Low 10.10-27.10 [facility] Comment on above: Result Comment: The 95% CI (Confidence Interval) PPV (Positive Predictive Value) for myocardial infarction in females is 38 pg/mL, in males 51 pg/mL. The results should be used in conjunction with clinical conditions of myocardial infarction. (Access High Sensitivity Troponin I Instructions For Use, Sandra [place], November 2017) Performed By: #### 1 [id number] #### [facility] [address] [place] [address] UA with Cult [employer]flxon 12-22-19 24 Bilirubin Ql (U) Negative Normal Negative [facility] Comment on above: Performed By: #### 4 [id number] #### [facility] [address] [place] [address] Clarity (U) Clear Normal Clear [facility] Comment on above: Performed By: #### 4 [id number] #### [facility] [address] [place] [address] Color (U) Light-Yellow Normal Yellow [facility] Comment on above: Result Comment: Micr oscopic readings are only performed on those samples that meet specific criteria set forth by [facility]. Performed By: #### 4 [id number] #### [facility] [address] [place] [address] Glucose Ql (U) Negative Normal Negative [facility] Comment on above: Performed By: #### 4 [id number] #### [facility] [address] [place] [address] Hemoglobin Auto test strip (U) [Mass/Vol] Negative Normal Negative [facility] Comment on above: Performed By: #### 4 [id number] #### [facility] [address] [place] [address] Ketones Auto test strip Ql (U) Negative Normal Negative [facility] Comment on above: Performed By: #### 4 [id number] #### [facility] [address] [place] [address] Leukocyte esterase Auto test strip Ql (U) Negative Normal Negative [facility] Comment on above: Performed By: #### 4 [id number] #### [facility] [address] [place] [address] Nitrite Auto test strip Ql (U) Negative Normal Negative [facility] Comment on above: Performed By: #### 4 [id number] #### [facility] [address] [place] [address] pH (U) 6.5 [pH] Invalid Interpretation Code 5.0-9.0 [facility] Comment on above: Performed By: #### 4 [id number] #### [facility] [address] [place] [address] Protein Ql (U) Negative Normal Negative [facility] Comment on above: Performed By: #### 4 [id number] #### [facility] [address] [place] [address] Specific gravity (U) [Rel density] 1.015 Invalid Interpretation Code 1.005-1.030 [facility] Comment on above: Performed By: #### 4 [id number] #### [facility] [address] [place] [address] Urobilinogen (U) [Mass/Vol] Negative Normal Negative [facility] Comment on above: Performed By: #### 4 [id number] #### [facility] [address] [place] [address] Type of Urine collection method Clean Catch Normal [facility] Comment on above: Performed By: #### 4 [id number] #### [facility] [address] [place] [address] URINALYSISOrdered By: SYSTEM SYSTEM on 12-22-2023 Bilirubin Ql (U) Negative Normal Negativemg/ d L [facility] UA Auto SS Clarity (U) Clear (12/22/23 8:39 PM) Normal Clear [facility] UA Auto SS Color (U) Light-Yellow 1 (12/22/23 8:39 PM) Normal Yellow [facility] UA Auto SS Comment on above: Interpretive Data: M icroscopic readings are only performed on those samples that meet specific criteria set forth by [facility]. Glucose Ql (U) Negative Normal Negativemg/d L [facility] UA Auto SS Hemoglobin Auto test strip (U) [Mass/Vol] Negative Normal Negativemg/d L [facility] UA Auto SS Ketones Auto test strip Ql (U) Negative Normal Negativemg/d L [facility] UA Auto SS Leukocyte esterase Auto test strip Ql (U) Negative Normal NegativeLeu/ uL [facility] UA Auto SS Nitrite Auto test strip Ql (U) Negative Normal Negativemg/d L [facility] UA Auto SS pH (U) 6.5 *NA* (12/22/23 8:39 PM) Invalid Interpretation Code 5.0 - 9.0 [facility] UA Auto SS Protein Ql (U) Negative Normal Negativemg/d L [facility] UA Auto SS Specific gravity (U) [Rel density] 1.015 *NA* (12/22/23 8:39 PM) Invalid Interpretation Code 1.005 - 1.030 [facility] UA Auto SS Urobilinogen (U) [Mass/Vol] Negative Normal Negativemg/d L [facility] UA Auto SS URINALYSISOrdered By: Shasha Ambrocio on 12-22-2023 UA Spec Desc Clean Catch (12/22/23 8:39 PM) Normal [facility] UA Auto SS eGFRon 12-22-2023 eGFR 131 mL/min/1.73 m2 Normal >=59 [facility] Comment on above: Order Comment: Order added by Discern Expert. Performed By: #### 1 [id number] #### [facility] [address] [place] [address] ECG 12 Leadon 08-18-2023 See scan [facility] Work Phone: ECG 12 Leadon 05-05-2023 [facility] Work Phone: See [facility] Work Phone: ECG 12 lead (Clinic Performe d)on 05-05-2023 See [facility] Work Phone: ECG 12 lead (Clinic Performe d)on 03-06-2023 See [facility] Work Phone: XR KNEE 4+ VIEWS RIGHTon [...] a) No falls within the last year [facility] [address] DO Work Phone: Tobacco use status [facility] b) No -[facility] DO Work Phone: CA tilt table teston 023 CA tilt table test [facility] Main [place] [address] [place] [address] Cardiology Report Signed Patient: Arbaella Knott MR#: [id number] : 2005 Acct:[id number] Age/Sex: 17 / F ADM Date: 08/17/22 Loc: Room: Type: [facility] Attending Dr: An Michaels MD Copies to: Kylie Marc MD [...] was advised to followup with her primary field service consultant. Transcribed By: SCARLETT 08/17/22 1548 Dictated By: Kylie Marc MD 08/17/22 1146 Signed By: 08/18/22 2133 [facility] No Panel Informationon 08-17 [facility] [address] DO Work Phone: Cardiac Stress Teston 2022 Cardiac Stress Test Please click on the link to view the study images [facility] Work Phone: Cardiac Stress Test [facility] [address] DO Work Phone: Office Visit (Cardiology)on [...] can help you lose weight.; Status:Complete; Done: 11Jul2022 Orthostatic dizziness, Palpitation, Shortness of breath Tilt Table; Status:Hold For - Scheduling; Requested for:11Jul2022; Primary hypertension Start: Magnesium Oxide 400 MG [...] diameter 3.7 cm 8. Patient reports menstrual irregularity-amenorrh ea, for 4 years, has decided not to [...] MG Oral CapsuleTake 1 capsule twice daily Amphetamine-Dextroamp het ER 15 MG Oral Capsule Extended Release [...] Social History Problems Caregiver smokes outdoors only (V1.89) (Z77.22) in the family, father Lives with grandparent(s) Lives with mother (single parent) No alco (more content not included)... Normal [employer] Tobacco Screening.on 023 Tobacco use status [facility] b) No -[facility] DO Work Phone: FREE T3on 06-20-2022 FREE T3 2.69 pg/mlL Critically low 2.91-4.70 [facility] Comment on above: Performed By: #### F T3, BMP, TSH #### [facility] [address] [address] [address] Kimbelry Moody FREE T4on 06-20-2022 Free T4 [Mass/Vol] 0.92 ng/dL Normal 0.78-1.34 [facility] Comment on above: Performed By: #### F T4 #### [facility] [address] [address] [address] Kimberly Moody PROF CHEM 8 (BAS METB)on Anion gap [Moles/Vol] 10.5 mmol/L [facility] Comment on above: Performed By: #### F T3, BMP, TSH #### [facility] [address] [address] [address] Kimberly Moody Calcium [Mass/Vol] 8.6 mg/dL Normal 8.5-10.1 [facility] Comment on above: Performed By: #### F T3, BMP, TSH #### [facility] [address] [address] [address] Kimberly Moody Chloride [Moles/Vol] 105 mmol/L Normal 98-107 [facility] Comment on above: Performed By: #### F T3, BMP, TSH #### [facility] [address] [address] [address] Kimberly Moody CO2 [Moles/Vol] 28.6 mmol/L Normal 21.0-32.0 [facility] Comment on above: Performed By: #### F T3, BMP, TSH #### [facility] [address] [address] [address] Kimberly Moody Creatinine [Mass/Vol] 0.60 mg/dL Normal 0.55-1.02 [facility] Comment on above: Performed By: #### F T3, BMP, TSH #### [facility] [address] [address] [address] Kimberly Moody EGFR-AF CHADIAN >60 Normal >=60 [facility] Comment on above: Performed By: #### F T3, BMP, TSH #### [facility] [address] [address] [address] Kimberly Moody EGFR-NON AF CHADIAN >60 Normal >=60 [facility] Comment on above: Performed By: #### F T3, BMP, TSH #### [facility] [address] [address] [address] Kimberly Moody Glucose [Mass/Vol] 89 mg/dL Normal 74-106 [facility] Comment on above: Performed By: #### F T3, BMP, TSH #### [facility] [address] [address] [address] Kimberly Moody Potassium [Moles/Vol] 4.1 mmol/L Normal 3.5-5.1 [facility] Comment on above: Performed By: #### F T3, BMP, TSH #### [facility] [address] [address] [address] Kimberly Moody Sodium [Moles/Vol] 140 mmol/L Normal 136-145 [facility] Comment on above: Performed By: #### F T3, BMP, TSH #### [facility] [address] [address] [address] Kimberly Moody Urea nitrogen [Mass/Vol] 9.0 mg/dL Normal 6.4-19.3 [facility] Comment on above: Performed By: #### F T3, BMP, TSH #### [facility] [address] [address] [address] Kimberly Moody Urea nitrogen/Creatinine [Mass ratio] 15.0 mg/mg Normal [facility] Comment on above: Performed By: #### F T3, BMP, TSH #### [facility] [address] [address] [address] Kimberly Moody TSHon 06-20-2022 TSH 2.839 uIU/mL Normal 0.516-4.130 [facility] Comment on above: Performed By: #### F T3, BMP, TSH #### [facility] [address] [address] [address] Kimberly Moody Cardiovasc Arrhythmia Result son 06-15-2022 Cardiovasc Arrhythmia Results Reason For Visit Reason for Visit: Holter Monitor: ARABELLA is here for the application of a 24 hour Holter monitor. Ordering Physician: Dr. An Michaels MD Diagnosis: Near syncope/ Palpitations [facility] equipment agreement signed. ARABELLA understands monitor is to be returned on: 06/16/2022 Monitor number [id number] applied. Holter monitor returned and downloaded Holter monitor printed and placed on Dr. An Michaels MD desk to dictate. . Procedure [...] Diagnosis/Problems Assessed Palpitation (785.1) (R00.2) Future Appointments Date/TimeProviderSpec ialtySite 06/27/2022 01:00 PMAn Michaels, [id number] [facility] [address] DO Signatures Electronically signed by : Malathi Read L.P.N.; Jun 17 2022 10:51AM EST (Author) Electronically signed by : An Michaels MD; Jun 19 2022 10:35PM EST (Author) Normal [email or web address] Office Visit (Cardiology)on 06-06-2022 Follow-up visit Diagnoses/Problems [...] tablet daily Basic Metabolic Panel; Status:Active; Requested for:[id number]; T3 - Free Triiodothyronine, Serum; Status:Active; Requested for:13Jun2022; T4 - Free Thyroxine, Serum; Status:Active; Requested for:[id number]; TSH - Thyroid Stimulating Hormone, Serum; Status:Active; Requested for:[id number]; Palpitation, Primary hypertension Start: Acebutolol HCl - [...] diameter 3.7 cm 8. Patient reports menstrual irregularity-amenorrh ea, for 4 years, has decided not to [...] in postu (more content not included)... Normal [email or web address] Tobacco Screening.on 023 Adult depression screening assessment No [facility] [address] DO Work Phone: Fall risk assessment a) No falls within the last year [facility] DO Work Phone: Tobacco use status [facility] b) No [facility] DO Work Phone: ECHOCARDIO M/2D COMPLETEon 1 05-26-2021 ECHOCARDIO M/2D COMPLETE Patient: ARABELLA KNOTT Exam Date: 03/25/2022 : 2005 Gender:F Ordering : DR MEIR DE GUZMAN M.D. Admission #: [id number] Family : Order #: [id number] CLICK HERE TO VIEW EXAM ECHOCARDIOGRAM REPORT [...] Parham M.D. on 03/31/2022 at 15:06 Normal [facility] Vital Signs Date Time Vital Sign Value Performing Clinician Facility 01-15-2024 16:45-0400 Body temperature 97.39 [degF] Summer Workman PA Work Phone: [facility] 01-15-2024 16:45-0400 Body weight 132.5 kg Summer Workman PA Work Phone: [facility] 01-15-2024 16:45-0400 Diastolic blood pressure 80 mm[Hg] Summer Casual Stepsman PA Work Phone: [facility] 01-15-2024 16:45-0400 Heart rate 94 /min [facility] Casual Stepsman PA Work Phone: [facility] 01-15-2024 16:45-0400 SaO2% (BldA) [Mass fraction] 98 % Summer Workman PA Work Phone: [facility] 01-15-2024 16:45-0400 Systolic blood pressure 122 mm[Hg] Summer Casual Stepsman PA Work Phone: [facility] 12-22-2023 20:30-0400 Body temperature 98.42 [degF] Dani Middleton [facility] 12-22-2023 20:30-0400 Diastolic blood pressure 105 mm[Hg] Dani Middleton [facility] 12-22-2023 20:30-0400 Heart rate 118 /min Dani Middleton [facility] 12-22-2023 20:30-0400 Mean blood pressure 125 mm[Hg] Dani Emi [facility] 12-22-2023 20:30-0400 Respiratory rate 18 /min Dani Emi [facility] 12-22-2023 20:30-0400 SaO2% (BldA) [Mass fraction] 96 % Dani Emi [facility] 12-22-2023 20:30-0400 Systolic blood pressure 165 mm[Hg] Dani Emi [facility] 12-22-2023 19:48-0400 Diastolic blood pressure 119 mm[Hg] Dani Emi [facility] 12-22-2023 19:48-0400 Heart rate 121 /min Dani Emi [facility] 12-22-2023 19:48-0400 Mean blood pressure 133 mm[Hg] Dani Emi [facility] 12-22-2023 19:48-0400 Respiratory rate 15 /min Dani Emi [facility] 12-22-2023 19:48-0400 SaO2% (BldA) [Mass fraction] 96 % Dani Emi [facility] 12-22-2023 19:48-0400 Systolic blood pressure 162 mm[Hg] Dani Emi [facility] 12-22-2023 18:10-0400 Body temperature 98.6 [degF] Dani Emi [facility] 12-22-2023 18:10-0400 Diastolic blood pressure 111 mm[Hg] Dani Emi [facility] 12-22-2023 18:10-0400 Heart rate 133 /min Dani Emi [facility] 12-22-2023 18:10-0400 Respiratory rate 18 /min Dani Middleton [facility] 12-22-2023 18:10-0400 SaO2% (BldA) [Mass fraction] 100 % Dani Middleton [facility] 12-22-2023 18:10-0400 Systolic blood pressure 147 mm[Hg] Dani Middleton [facility] 08-18-2023 11:31-0400 Body height 165.1 cm Audra Fabian MD Work Phone: [facility] 08-18-2023 11:31-0400 Body mass index (BMI) [Ratio] 48.59 kg/m2 Audra Fabian MD Work Phone: [facility] 08-18-2023 11:31-0400 Body weight 132.45 kg Audra Fabian MD Work Phone: [facility] 08-18-2023 11:31-0400 Diastolic blood pressure 78 mm[Hg] Audra Fabian MD Work Phone: [facility] 08-18-2023 11:31-0400 Heart rate 73 /min Audra Fabian MD Work Phone: [facility] 08-18-2023 11:31-0400 Systolic blood pressure 128 mm[Hg] Audra Fabian MD Work Phone: [facility] 05-05-2023 16:07-0500 Body height 165.1 cm Audra Fabian MD Work Phone: [facility] 05-05-2023 16:07-0500 Body mass index (BMI) [Ratio] 47.76 kg/m2 Audra Fabian MD Work Phone: [facility] 05-05-2023 16:07-0500 Body weight 130.18 kg Audra Fabian MD Work Phone: [facility] 05-05-2023 16:07-0500 Diastolic blood pressure 74 mm[Hg] Audra Fabian MD Work Phone: [facility] 05-05-2023 16:07-0500 Heart rate 64 /min Audra Fabian MD Work Phone: [facility] 05-05-2023 16:07-0500 Systolic blood pressure 126 mm[Hg] Audra Fabian MD Work Phone: [facility] 03-06-2023 12:20-0500 Body height 165.1 cm Audra Fabian MD Work Phone: [facility] 03-06-2023 12:20-0500 Body mass index (BMI) [Ratio] 47.93 kg/m2 Audra Fabian MD Work Phone: [facility] 03-06-2023 12:20-0500 Body weight 130.64 kg Audra Fabian MD Work Phone: [facility] 03-06-2023 12:20-0500 Diastolic blood pressure 84 mm[Hg] Audra Fabian MD Work Phone: [facility] 03-06-2023 12:20-0500 Heart rate 75 /min Audra Fabian MD Work Phone: [facility] 03-06-2023 12:20-0500 Systolic blood pressure 138 mm[Hg] Audra Fabian MD Work Phone: [facility] 12-09-2022 10:30-0400 Body weight 130.64 kg Meir De Guzman Other [employer] Other 12-09-2022 10:30-0400 Diastolic blood pressure 85 mm[Hg] Meir De Guzman Other [employer] Other 12-09-2022 10:30-0400 Systolic blood pressure 135 mm[Hg] Meir De Guzman Other [employer] Other 09-12-2022 10:15-0400 Body height 167.64 cm Meir De Guzman Other [employer] Other 09-12-2022 10:15-0400 Body mass index (BMI) [Ratio] 44.22 kg/m2 Meir De Guzman Other [facility] [employer] Other 09-12-2022 10:15-0400 Body weight 124.29 kg Meir De Guzman Other [facility] [employer] Other 09-12-2022 10:15-0400 Diastolic blood pressure 71 mm[Hg] Meir De Guzman Other [facility] [employer] Other 09-12-2022 10:15-0400 Systolic blood pressure 119 mm[Hg] Meir De Guzman Other [facility] [employer] Other 08-29-2022 11:17-0400 Diastolic blood pressure 90 mm[Hg] Meir De Guzman Work Phone: [facility] [address] DO Work Phone: 08-29-2022 11:17-0400 Diastolic blood pressure 100 mm[Hg] Meir De Guzman Work Phone: [facility] [address] DO Work Phone: 08-29-2022 11:17-0400 Systolic blood pressure 122 mm[Hg] Meir De Guzman Work Phone: [facility] [address] DO Work Phone: 08-29-2022 11:17-0400 Systolic blood pressure 134 mm[Hg] Meir De Guzman Work Phone: [facility] [address] DO Work Phone: 08-29-2022 10:37-0400 Body height 165.1 cm Meir De Guzman Work Phone: [facility] [address] DO Work Phone: 08-29-2022 10:37-0400 Body mass index (BMI) [Ratio] 45.76 kg/m2 Meir De Guzman Work Phone: [facility] [address] DO Work Phone: 08-29-2022 10:37-0400 Body surface area Derived from formula 2.26 m2 Meir De Guzman Work Phone: [facility] [address] DO Work Phone: 08-29-2022 10:37-0400 Body weight 124.74 kg Meir De Guzman Work Phone: [facility] [address] DO Work Phone: 08-29-2022 10:37-0400 Diastolic blood pressure 82 mm[Hg] Meir De Guzman Work Phone: [facility] DO Work Phone: 08-29-2022 10:37-0400 Heart rate 74 /min Meir De Guzman Work Phone: [facility] [address] DO Work Phone: 08-29-2022 10:37-0400 Systolic blood pressure 128 mm[Hg] Meir De Guzman Work Phone: [facility] [address] DO Work Phone: 08-29-2022 10:37-0400 99 1 Meir De Guzman Work Phone: [facility] DO Work Phone: Comment on above: BMIPerc 2-20_WPerc 08-29-2022 10:37-0400 61 1 Meir De Guzman Work Phone: [facility] DO Work Phone: Comment on above: 2-20_SPerc 08-17-2022 11:15-0400 Diastolic blood pressure 106 mm[Hg] MD Meir De Guzman Work Phone: [facility] 08-17-2022 11:15-0400 Heart rate 82 /min MD Meir De Guzman Work Phone: [facility] 08-17-2022 11:15-0400 Systolic blood pressure 158 mm[Hg] MD Meir De Guzman Work Phone: [facility] 08-17-2022 10:41-0400 Body height 165.1 cm MD Meir De Guzman Work Phone: [facility] 08-17-2022 10:41-0400 Body weight 113.39 kg MD Meir De Guzman Work Phone: [facility] 08-17-2022 10:30-0400 SaO2% (BldA) [Mass fraction] 99 % MD Meir De Guzman Work Phone: [facility] 07-11-2022 11:08-0400 Diastolic blood pressure 88 mm[Hg] Meir De Guzman Work Phone: [facility] [address] DO Work Phone: 07-11-2022 11:08-0400 Diastolic blood pressure 86 mm[Hg] Meir De Guzman Work Phone: [facility] [address] DO Work Phone: 07-11-2022 11:08-0400 Systolic blood pressure 130 mm[Hg] Meir De Guzman Work Phone: [facility] DO Work Phone: 07-11-2022 11:08-0400 Systolic blood pressure 128 mm[Hg] Meir De Guzman Work Phone: [facility] [address] DO Work Phone: 07-11-2022 10:52-0400 Body height 165.1 cm Meir De Guzman Work Phone: [facility] [address] DO Work Phone: 07-11-2022 10:52-0400 Body mass index (BMI) [Ratio] 44.1 kg/m2 Meir De Guzman Work Phone: [facility] [address] DO Work Phone: 07-11-2022 10:52-0400 Body surface area Derived from formula 2.23 m2 Meir De Guzman Work Phone: [facility] [address] DO Work Phone: 07-11-2022 10:52-0400 Body weight 120.2 kg Meir De Guzman Work Phone: [facility] [address] DO Work Phone: 07-11-2022 10:52-0400 Diastolic blood pressure 98 mm[Hg] Meir De Guzman Work Phone: [facility] DO Work Phone: 07-11-2022 10:52-0400 Heart rate 80 /min Meir De Guzman Work Phone: [facility] DO Work Phone: 07-11-2022 10:52-0400 Systolic blood pressure 130 mm[Hg] Meir De Guzman Work Phone: [facility] DO Work Phone: 07-11-2022 10:52-0400 61 1 Meir De Guzman Work Phone: [facility] DO Work Phone: Comment on above: 2-20_SPerc 07-11-2022 10:52-0400 99 1 Meir De Guzman Work Phone: [facility] DO Work Phone: Comment on above: 2-20_WPerc BMIPerc 06-23-2022 11:45-0400 Body height 167.64 cm Meir De Guzman Other [employer] Other 06-23-2022 11:45-0400 Body mass index (BMI) [Ratio] 41.96 kg/m2 Meir De Guzman Other [employer] Other 06-23-2022 11:45-0400 Body temperature 98.2 [degF] Meir De Guzman Other [employer] Other 06-23-2022 11:45-0400 Body weight 117.94 kg Meir De Guzman Other [employer] Other 06-23-2022 11:45-0400 Diastolic blood pressure 88 mm[Hg] Meir De Guzman Other [employer] Other 06-23-2022 11:45-0400 SaO2% (BldA) [Mass fraction] 98 % Meir De Guzman Other [employer] Other 06-23-2022 11:45-0400 Systolic blood pressure 130 mm[Hg] Meir De Guzman Other [employer] Other 06-06-2022 14:33-0500 Diastolic blood pressure 100 mm[Hg] Meir De Guzman Work Phone: [employer] 250 DO Work Phone: 06-06-2022 14:33-0500 Diastolic blood pressure 110 mm[Hg] Meir De Guzman Work Phone: [employer] 250 DO Work Phone: 06-06-2022 14:33-0500 Systolic blood pressure 140 mm[Hg] Meir De Guzman Work Phone: [employer] 250 DO Work Phone: 06-06-2022 14:33-0500 Systolic blood pressure 160 mm[Hg] Meir De Guzman Work Phone: [facility] DO Work Phone: 06-06-2022 13:41-0500 Diastolic blood pressure 100 mm[Hg] Meir De Guzman Work Phone: [facility] DO Work Phone: 06-06-2022 13:41-0500 Systolic blood pressure 144 mm[Hg] Meir De Guzman Work Phone: [facility] [facility] DO Work Phone: 06-06-2022 11:38-0500 Diastolic blood pressure 110 mm[Hg] Meir De Guzman Work Phone: [facility] 250 DO Work Phone: 06-06-2022 11:38-0500 Systolic blood pressure 156 mm[Hg] Meir De Guzman Work Phone: [facility] 250 DO Work Phone: 06-06-2022 11:33-0500 Body height 165.1 cm Mier De Guzman Work Phone: [facility] 250 DO Work Phone: 06-06-2022 11:33-0500 Body mass index (BMI) [Ratio] 43.43 kg/m2 Meir De Guzman Work Phone: [facility] 250 DO Work Phone: 06-06-2022 11:33-0500 Body surface area Derived from formula 2.22 m2 Meir De Guzman Work Phone: [facility] 250 DO Work Phone: 06-06-2022 11:33-0500 Body weight 118.39 kg Meir De Guzman Work Phone: [facility] 250 DO Work Phone: 06-06-2022 11:33-0500 Diastolic blood pressure 118 mm[Hg] Meir De Guzman Work Phone: [facility] 250 DO Work Phone: 06-06-2022 11:33-0500 Heart rate 80 /min Meir De Guzman Work Phone: [facility] 250 DO Work Phone: 06-06-2022 11:33-0500 Systolic blood pressure 160 mm[Hg] Meir De Guzman Work Phone: [facility] 250 DO Work Phone: 06-06-2022 11:33-0500 61 1 Meir De Guzman Work Phone: [facility] 250 DO Work Phone: Comment on above: 2-20_SPerc 06-06-2022 11:33-0500 99 1 Meir De Guzman Work Phone: [facility] 250 DO Work Phone: Comment on above: 2-20_WPerc BMIPerc 04-18-2022 16:45-0500 Body height 167.64 cm Meir De Guzman Other [employer] Other 04-18-2022 16:45-0500 Body mass index (BMI) [Ratio] 45.19 kg/m2 Meir De Guzman Other [employer] Other 04-18-2022 16:45-0500 Body temperature 98.2 [degF] Meir De Guzman Other [employer] Other 04-18-2022 16:45-0500 Body weight 127.01 kg Meir De Guzman Other [employer] Other 04-18-2022 16:45-0500 Diastolic blood pressure 88 mm[Hg] Meir De Guzman Other [employer] Other 04-18-2022 16:45-0500 SaO2% (BldA) [Mass fraction] 97 % Meir De Guzman Other [employer] Other 04-18-2022 16:45-0500 Systolic blood pressure 146 mm[Hg] Meir De Guzman Other [employer] Other 11-18-2021 14:45-0400 Body height 167.64 cm Melanie Major Other [employer] Other 11-18-2021 14:45-0400 Body mass index (BMI) [Ratio] 46.64 kg/m2 Melanie Cuevamond Other [employer] Other 11-18-2021 14:45-0400 Body temperature 98.5 [degF] Melanie Moriah Other [employer] Other 11-18-2021 14:45-0400 Body weight 131.09 kg Melanie Moriah Other [employer] Other 11-18-2021 14:45-0400 Diastolic blood pressure 95 mm[Hg] Melanie Moriah Other [employer] Other 11-18-2021 14:45-0400 Respiratory rate 18 /min Melanie Moriah Other [employer] Other 11-18-2021 14:45-0400 SaO2% (BldA) [Mass fraction] 98 % Melanie Moriah Other [employer] Other 11-18-2021 14:45-0400 Systolic blood pressure 154 mm[Hg] Melanie Major Other [employer] Other Encounters Encounter Date Encounter Type Care Provider Facility Start: 01-15-2024 End: 01-15-2024 ambulatory summer WORKMAN Not Available Start: 01-15-2024 End: 01-15-2024 Office outpatient visit 25 minutes summer Workman PA Work Phone: [facility] Comment on above: COVID-19 (Primary Dx ); Pharyngitis, unspecified etiology; Nausea and vomiting, unspecified vomiting type Start: 01-03-2024 End: 01-03-2024 Office outpatient visit 25 minutes Cathleen Woods CONTRACT ADMINISTRATION SPECIALIST-DIE CUTTER DIAMOND Work Phone: [facility] Comment on above: Migraine with aura a nd without status migrainosus, not intractable Start: 01-03-2024 End: 01-03-2024 ambulatory CATHLEEN WOODS [facility] Start: 12-22-2023 End: 12-22-2023 Emergency department patient visit Dani Middleton [facility] Start: 08-18-2023 End: 08-18-2023 ambulatory [facility] David FABIAN [facility] Ambulatory Start: 08-18-2023 End: 08-18-2023 Office outpatient visit 40 minutes Audra Fabian MD Work Phone: [facility] Comment on above: Orthostatic hypotens ion (Primary Dx); Vasovagal syncope; Shortness of breath; Palpitations; Encounter for medication review and counseling; Obesity, morbid, BMI 40.0-49.9 (Multi); Never smoked cigarettes; Near syncope Start: 05-14-2023 End: 05-14-2023 ambulatory summer WORKMAN Not Available Start: 05-05-2023 End: 05-05-2023 ambulatory [facility] David FABIAN [facility] Ambulatory Start: 05-05-2023 End: 05-05-2023 Office outpatient visit 40 minutes Audra Fabian MD Work Phone: [facility] Comment on above: Orthostatic hypotens ion (Primary Dx); Palpitations; Shortness of breath; Vasovagal syncope; Encounter for medication review and counseling; Encounter to discuss treatment options Start: 04-27-2023 End: 04-27-2023 ambulatory AUDRA Hernandez [facility] Ambulatory Start: 04-17-2023 End: 04-17-2023 ambulatory Meir De Guzman Other [employer] Other Start: 04-17-2023 Telephone encounter Meir De Guzman [facility] Start: 03-06-2023 End: 03-06-2023 Office consultation new/estab patient 60 min Audra Fabian MD Work Phone: [facility] Comment on above: Vaso vagal episode ( Primary Dx); Vasovagal syncope; Essential hypertension; Palpitations; Shortness of breath; Orthostatic hypotension; Mixed bipolar affective disorder, moderate (CMS/HCC) Start: 03-06-2023 End: 03-06-2023 ambulatory [facility] Ambulatory Start: 02-28-2023 End: 02-28-2023 ambulatory XAVIER HOOVER Not Available Start: 12-09-2022 End: 12-09-2022 ambulatory Meir De Guzman Other [employer] Other Start: 12-09-2022 Office outpatient vi sit 15 minutes Meir De Guzman [facility] Start: 09-30-2022 Telephone encounter [facility]uler [facility] Work Phone: Start: 09-12-2022 Telephone encounter Meir schuler Work Phone: [facility] DO Work Phone: Start: 09-12-2022 End: 09-12-2022 ambulatory Meir De Guzman Other [employer] Other Start: 09-12-2022 Office outpatient vi sit 15 minutes Meir De Guzman [facility] Start: 08-29-2022 ambulatory MD AN MICHAELS Facilit y: Start: 08-19-2022 Chart Update Meir De Guzman Work Phone: [facility] 250 DO Work Phone: Start: 08-17-[address] Kylie Marc Facility:[id number] Start: 08-17-2022 End: 08-17-2022 ambulatory An Michaels Facility:[facility] Start: 08-17-2022 End: 08-17-2022 ambulatory MD Meir De Guzman Work Phone: [facility] Work Phone: Start: 08-17-2022 End: 08-17-2022 Patient encounter procedure MD Meir De Guzman Work Phone: [facility] Work Phone: Start: 08-02-2022 End: 08-02-2022 ambulatory Meir De Guzman Other [employer] Other Start: 08-02-2022 Telephone encounter Meir De Guzman [facility] Start: 07-11-2022 ambulatory MD AN MICHAELS Facilit y:[id number] Start: 07-11-2022 Office outpatient vi sit 25 minutes Meir De Guzman Work Phone: [facility] 250 DO Work Phone: Start: 07-11-2022 Patient encounter procedure Meir De Guzman Work Phone: [facility] DO Work Phone: Start: 06-23-2022 End: 06-23-2022 ambulatory Meir De Guzman Other [employer] Other Start: 06-23-2022 Office outpatient vi sit 15 minutes Meir De Guzman [facility] Start: 06-23-2022 Telephone encounter Meir De Guzman [facility] Start: 06-20-2022 End: 06-21-[address] DOCTOR ROSE Facility:[facility] Start: 06-19-2022 ambulatory MD AN MICHAESL Facilit y:[id number] Start: 06-15-2022 ambulatory MD AN MICHAELS Facilit y: Start: 06-15-2022 Patient encounter procedure Meir De Guzman Work Phone: [facility] 250 DO Work Phone: Start: 06-06-2022 ambulatory MD AN MICHAELS Facilit y: Start: 06-06-2022 Office consultation new/estab patient 60 min Meir De Guzman Work Phone: [facility] DO Work Phone: Start: 06-06-2022 Patient encounter procedure Meir De Guzman Work Phone: [facility] 250 DO Work Phone: Start: 05-09-2022 End: 05-09-2022 ambulatory Meir De Guzman Other [employer] Other Start: 05-09-2022 Telephone encounter Meir De Guzman [facility] Start: 04-18-2022 End: 04-18-2022 ambulatory Meir De Guzman Other [employer] Other Start: 04-18-2022 Office outpatient vi sit 15 minutes Mier De Guzman [facility] Start: 04-12-2022 End: 04-12-2022 ambulatory Meir De Guzman Other [employer] Other Start: 04-12-2022 Telephone encounter Meir De Guzman [facility] Start: 03-25-2022 End: 03-26-[address] MEIR DE GUZMNA Facility:[facility]1 Start: 01-07-2022 End: 01-08-2022 ambulatory MAURILIO JAMISON Facility:[facility] Start: 12-28-2021 End: 12-29-2021 ambulatory MAURILIO JAMISON Facility:[facility] Start: 12-21-2021 End: 12-22-[address] MEIR DE GUZMAN Facility:[facility] Start: 11-18-2021 End: 11-18-2021 ambulatory Melanie Major Other [employer] Other Start: 11-18-2021 Office outpatient ne w 20 minutes Melanie Major [facility] Procedures Date Procedure Procedure Detail Performing Clinician Start: 01-15-2024 Iadna streptococcus group a amplified probe tq Summer Aiden Pito [facility] Work Phone: Start: 01-15-2024 STATUS COVID-19/FLU Sum reyes M Pito [facility] Work Phone: Start: 08-18-2023 COMPRESSION STOCKING S 20-30 MMHG [...] Ear Pressure Equaliz ation Tube, Insertion, Bilaterally Meir De Guzman Work Phone: Tonsillectomy and adenoidectomy Meir De Guzman Work Phone: Plan of Treatment Date Care Activity Detail Author Start: 2053 Zoster Vaccines (1 o f 2) Zoster Vaccines (1 of 2) [facility] Start: 02-20-2024 End: 02-20-2024 Patient encounter procedure 02/20/2024 2:20 PM EST Office Visit [facility] [address] [facility] [address] [place] [address] Audra Fabian MD [address] [facility] [address], [address] [place] [address] [facility] Start: 12-10-2023 COVID-19 Vaccine ( season) COVID-19 Vaccine ( season) [facility] Start: 12-10-2023 Influenza vaccination [facility] Start: 11-03-2023 End: 11-03-2023 Patient encounter procedure 11/03/2023 12:20 PM EDT Office Visit [facility] [address] [place] [address] Audra Fabian MD [address] [facility] [address], [address] [place] [address] [facility] Start: 11-02-2023 End: 11-02-2023 Patient encounter procedure [facility] Start: 05-19-2023 End: 05-19-2023 Patient encounter procedure 05/19/2023 11:40 AM EST Office Visit [facility] [address] [place] [address] Audra Fabian MD [address] [facility] [address], [address] [place] [address] [facility] Start: 03-06-2023 End: 03-06-2025 Holter 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 Routine Vasovagal syncope Expected: 03/06/2023 (Approximate), Expires: 03/06/2025 [facility] Service Area Work Phone: Comment on above: Expected: 03/06/2023 (Approximate), Expires: 03/06/2025 Start: 03-06-2023 End: 03-06-2025 US Heart Transthoracic Transthoracic Echo (TTE) Complete Echocardiography Routine Vasovagal syncope Shortness of breath Expected: 03/06/2023 (Approximate), Expires: 03/06/2025 [facility] Work Phone: Comment on above: Expected: 03/06/2023 (Approximate), Expires: 03/06/2025 Start: 02-17-2023 FUV, Provider: Audra Fabian, Status: Pen, Time: 2:00 PM FUV, Provider: Audra Fabian, Status: Pen, Time: 2:00 PM [facility] Work Phone: Start: 02-13-2023 FUV, Provider: An Michaels, Status: Pen, Time: 10:15 AM FUV, Provider: An Michaels, Status: Pen, Time: 10:15 AM [facility] 250 DO Work Phone: Start: 12-09-2022 COVID-19 Vaccine () COVID-19 Vaccine ( season) [facility] Start: 12-09-2022 Influenza vaccination Influenza Vacc ine (#1) [facility] Start: 08-29-2022 FUV, Provider: An Michaels, Status: Pen, Time: 10:00 AM FUV, Provider: An Michaels, Status: Pen, Time: 10:00 AM [facility] Work Phone: Start: 08-17-2022 SURGNONUH, Provider: Kylie Marc, Status: Pen, Time: 11:00 AM SURGNONUH, Provider: Kylie Marc, Status: Pen, Time: 11:00 AM [facility] Work Phone: Start: 08-11-2022 STRESS CHERISE, Provider : [facility]VI NUCLEAR 01,[id number], Status: Pen, Time: 11:30 AM STRESS CHERISE, Provider: [facility] NUCLEAR 01,[id number], Status: Pen, Time: 11:30 AM [facility] DO Work Phone: Start: 08-11-2022 STRESS CHERISE, Provider : [facility] NUCLEAR 01,[id number], Status: Pen, Time: 11:00 AM STRESS CHERISE, Provider: [facility] NUCLEAR 01,[id number], Status: Pen, Time: 11:00 AM [facility] DO Work Phone: Start: 06-27-2022 FUV, Provider: An Michaels, Status: Pen, Time: 1:00 PM FUV, Provider: An Michaels, Status: Pen, Time: 1:00 PM -[facility] 250 DO Work Phone: Start: 06-15-2022 HOLTER MON, Provider : [place] TABARES LEAD PRESSMAN 1,[id number], Status: Pen, Time: 1:30 PM HOLTER MON, Provider: [place] TABARES LEAD PRESSMAN 1,[id number], Status: Pen, Time: 1:30 PM -[facility] 250 DO Work Phone: Start: 2022 Hepatitis B Vaccines (1 of 3 - 19+ 3-dose series) Hepatitis B Vaccines (1 of 3 - 19+ 3-dose series) [facility] Start: 2021 Diabetes mellitus screening Diabetes Screening [facility] Start: 2021 Hepatitis C screening Hepatitis C Sc reening [facility] Start: 2018 HPV Vaccines (1 - 3-dose series) HPV Vaccines (1 - 3-dose series) [facility] Start: 01-28-2016 Varicella vaccination Varicell a Vaccines (1 of 2 - 13+ 2-dose series) [facility] Start: 2014 HPV Vaccines (1 - 2-dose series) HPV Vaccines (1 - 2-dose series) [facility] Start: 2010 DTaP/Tdap/Td Vaccine s (1 - Tdap) DTaP/Tdap/Td Vaccines (1 - Tdap) [facility] Start: 2007 Hearing Screening (#1) Hearing Scree silvino (#1) [facility] Start: 2006 Well Child Visit (WC V) - Annual Well Child Visit (WCV) - Annual [facility] Start: 01-28-2004 MMR Vaccines (1 of 1 - Standard series) MMR Vaccines (1 of 1 - Standard series) [facility] Start: 01-28-2004 Varicella vaccination Varicell a Vaccines (1 of 2 - 2-dose childhood series) [facility] Start: 2003 COVID-19 Vaccine (#1) COVID-19 Vacci ne (#1) [facility] Start: 2003 Hearing Screening (#1) Hearing Dana dubois (#1) [facility] Start: 2003 Hepatitis B Vaccines (1 of 3 - 3-dose series) Hepatitis B Vaccines (1 of 3 - 3-dose series) [facility] Start: 2003 HIV screening HIV Screening [facility] Start: 2003 Lipid panel Lipid Panel [facility] Payers Date Payer Category Payer Medicaid [employer] [facility] [place] [id number] 2022-Present [address] [place] [address] [id number] 2022 Self-pay 2021 Unknown 2003 Unknown [id number] [id number]3 2003 Unknown [id number] 2.16.840.1.111849.3.579.2.593 2003 Unknown [id number] 2.16.840.1.141813.3.579.2.356 2003 Unknown [id number] 2.16.840.1.463817.3.579.2.356 2003 Unknown [id number] 2.16.840.1.238561.3.579.2.356 2003 Unknown [id number] 2.16.840.1.022590.3.579.2.356 2003 Unknown [id number] 2.16.840.1.511718.3.579.2.1244 2003 Unknown [id number] 2.16.840.1.728755.3.579.2.1244 2003 Unknown [id number] 2.16.840.1.264558.3.579.2.1244 2003 Unknown [id number] 2.16.840.1.259613.3.579.2.1244 2003 Unknown [id number] 2.16.840.1.633794.3.579.2.727 2003 Unknown [id number] 2.16.840.1.115059.3.579.2.727 2003 Unknown [id number] 2.16.840.1.323015.3.579.2.1245 2003 Unknown [id number] 2.16.840.1.186513.3.579.2.1259 2003 Unknown [id number] 2.16.840.1.035875.3.579.2.1259 2003 Unknown [id number] 2.16.840.1.068258.3.579.2.1259 2003 Unknown [id number] 2.16.840.1.800741.3.579.2.1259 1972 Unknown [id number] 2.16.840.1.828363.3.579.2.593 1972 Unknown [id number] 2.16.840.1.879068.3.579.2.593 1972 Unknown [id number] 2.16.840.1.394583.3.579.2.593 1972 Unknown [id number] 2.16.840.1.122236.3.579.2.356 1972 Unknown [id number] 2.16.840.1.422864.3.579.2.356 1959 Unknown [id number] 2.16.840.1.722699.19 1959 Unknown [id number] 2.16.840.1.394468.19 Unknown [facility] [id number] Unknown Regular Insurance [id number] Unknown [id number] 2.16.840.1.128382.3.579.2.531 Social History Date Type Detail Facility Start: 03-06-2023 End: 11-02-2023 Sex Assigned At [facility] [employer] Other Start: 03-06-2023 End: 11-02-2023 Lives with mother (single parent) Lives with mother (single parent) [facility] 250 DO Work Phone: Start: 2003 Sex Assigned At Female F [facility] Start: 02-28-2023 End: 03-06-2023 Tobacco smoking status NHIS Never smoked tobacco [facility] Work Phone: Start: 02-28-2023 End: 03-06-2023 Tobacco use and exposure Smokeless tobacco non-user [facility] Work Phone: Start: 03-06-2023 End: 11-02-2023 Alcohol intake Lifetime non-drinker (finding) [facility] Work Phone: Start: 2003 [facility]: Start: 02-24-2023 End: 08-18-2023 Exposure to SARS-CoV-2 (event) Not sure [facility] Tobacco smoking status No Smoking Status Entered [facility] Functional Status Date Assessment Result Facility 12-22-2023 Functional Status N/A [facility] Clinical Notes 07-09-2009 to 01-15-2024 GURINDER Lance - 01/15/2024 4:40 PM Brian Woods APRN-BIRD - 01/03/2024 10:30 AM Edwin Fabian MD - 08/18/2023 11:20 AM EDTPatient InstructionsAudra Fabian MD - 05/05/2023 4:00 PM EST Note Date & Type Note Facility 01-15-2024 History of Presen t illness Narrative HPI: Historian of HPI: patient and family Arabella Knott is a 18 y.o. female who presents today to the Urgent Care with the following complaints and denials which have been present for 4 day(s). Pt reports a few days of nasal congestion, productive cough, sore throat, sinus pressure. She did throw up once. Denies fevers, chills, myalgias, nausea, vomiting, sob, wheezing, hemoptysis, chest pain. She reports last time she threw up was yesterday morning. She hasn't had much of an appetite, reports yesterday she ate some guatemalan fries and kept those down and had some liquid IV and is urinating at least every 4-6 hours. Denies constipation or diarrhea, blood in stool or bloating. She reports I am concerned I have gastroparesis , she reports she actually has had issues with nausea and vomiting for months. C/O Denies Symptom Comments [x] [] Runny Nose [] [x] Difficulty Swallowing [x] [] Sore Throat [x] [] Cough Productive [] [x] Ear Pain [] [x] Fever [] [x] Chills [x] [] Nasal Congestion Yellow [] [x] Myalgia [x] [] Vomiting [x] [] Sinus Pressure Additional Comments: pt has not taken any OTC medications Allergies Allergen Reactions Cariprazine Anaphylaxis Current Outpatient Medications Medication Instructions acebutolol (Sectral) 400 MG capsule Oral for 90 Days MAGnesium-Oxide 400 mg, Oral, Daily midodrine (PROAMATINE) 2.5 mg, Oral, 3 times daily Visit Vitals BP 122/80 Pulse 94 Temp 97.4 F (Temporal) Wt 292 lb 1.8 oz SpO2 98% Smoking Status Never ROS: A complete system ROS was performed and negative aside from the pertinent positives noted in the HPI and PE. IH Testing: The following tests were performed PCR Strep Test Rapid Flu Test Rapid COVID Test SEE TEST(S) ORDERS FOR RESULTS Physical Exam General Examination: alert, oriented, normal affect, well-appearing, in no acute distress, well developed, well nourished. Head: normocephalic, atraumatic Eyes: sclera non-icteric Ears: auditory canal clear, tympanic membrane intact, clear Nose: Slight congestion noted Oral Cavity: no lesions, mucosa moist Throat: clear, symmetrical rise of soft palate and uvula, no erythema or exudate Lymph Nodes: no cervical adenopathy Heart: regular rate and rhythm, S1, S2 normal Lungs: clear to auscultation bilaterally. No wheezes, rales, rhonchi. Extremities: no edema, no cyanosis Psych: alert, oriented, cognitive function intact, cooperative with exam. Assessment/Plan 1. COVID-19 Discussed diagnosis and treatment options including symptomatic treatment with Mucinex DM, Tylenol OTC as directed, push fluids, cool mist humidifier. Patient advised test is positive must quarantine until no fever for at least 24 hours without antipyretics. Must mask for additional 5 days. Patient advised to go to ER if symptoms worsen, persist or do not change including if experiences shortness of breath or high fever. We did discuss COVID 19 specific treatment options but will hold for now. Follow up with pcp in 3-5 days or sooner if needed. All questions/concerns addressed. Patient voiced understanding and agreement with the plan. 2. Pharyngitis, unspecified etiology Covid pos, flu and strep neg, reviewed with pt. - STATUS COVID-19/FLU - STREP DNA PROBE 3. Nausea and vomiting, unspecified vomiting type May use zofran otc as needed, if develops any new/worse sx to ER. She has no abdominal pain, constipation, diarrhea, last not vomited in over 24 hours, keeping liquids down. Must follow up with pcp in next few days. Note off work today and gómez provided. - ondansetron ODT (Zofran-ODT) 4 MG disintegrating tablet; Take 1 tablet (4 mg) by mouth every 8 (eight) hours if needed for nausea or vomiting for up to 3 days Dispense: 15 tablet; Refill: 0 documented in this encounter [facility] 01-03-2024 History of Presen t illness Narrative Patient being assessed today for follow-up of migraine. She reports that she is not having any migraine activity except for when she is tired then she will start to experience some headache activity. Denies any side effects. Will continue the amitriptyline as she has been taking it. Discussed role of medicine, importance of taking medications, potential risks, benefits, and precautions to be taken. Reviewed sleep hygiene and dietary modifications. Follow-up in 6 months or sooner if needed. This note was created with voice recognition software and was not corrected for typographical or grammatical errors documented in this encounter [facility] Work Phone: 12-22-2023 Hospital Discharg e instructions Patient Education 12/22/2023 21:14:33 Upper Respiratory Infection, Adult, [id number] Upper Respiratory Infection, Adult An upper respiratory infection (URI) affects the nose, throat, and upper airways that lead to the lungs. The most common type of URI is often called the common cold. URIs usually get better on their own, without medical treatment. What are the causes? A URI is caused by a germ (virus). You may catch these germs by: Breathing in droplets from an infected person's cough or sneeze. Touching something that has the germ on it (is contaminated) and then touching your mouth, nose, or eyes. What increases the risk? You are more likely to get a URI if: You are very young or very old. You have close contact with others, such as at work, school, or a health care facility. You smoke. You have long-term (chronic) heart or lung disease. You have a weakened disease-fighting system (immune system). You have nasal allergies or asthma. You have a lot of stress. You have poor nutrition. What are the signs or symptoms? Runny or stuffy (congested) nose. Cough. Sneezing. Sore throat. Headache. Feeling tired (fatigue). Fever. Not wanting to eat as much as usual. Pain in your forehead, behind your eyes, and over your cheekbones (sinus pain). Muscle aches. Redness or irritation of the eyes. Pressure in the ears or face. How is this treated? URIs usually get better on their own within 7 10 days. Medicines cannot cure URIs, but your doctor may recommend certain medicines to help relieve symptoms, such as: Ajxx-trp-wsjwvrf cold medicines. Medicines to reduce coughing (cough suppressants). Coughing is a type of defense against infection that helps to clear the nose, throat, windpipe, and lungs (respiratory system). Take these medicines only as told by your doctor. Medicines to lower your fever. Follow these instructions at home: Activity Rest as needed. If you have a fever, stay home from work or school until your fever is gone, or until your doctor says you may return to work or school. ?You should stay home until you cannot spread the infection anymore (you are not contagious). ?Your doctor may have you wear a face mask so you have less risk of spreading the infection. Relieving symptoms Rinse your mouth often with salt water. To make salt water, dissolve 1 tsp (3 6 g) of salt in 1 cup (237 mL) of warm water. Use a cool-mist humidifier to add moisture to the air. This can help you breathe more easily. Eating and drinking Drink enough fluid to keep your pee (urine) pale yellow. Eat soups and other clear broths. General instructions Take hxvf-xpn-orfadqz and prescription medicines only as told by your doctor. Do not smoke or use any products that contain nicotine or tobacco. If you need help quitting, ask your doctor. Avoid being where people are smoking (avoid secondhand smoke). Stay up to date on all your shots (immunizations), and get the flu shot every year. Keep all follow-up visits. How to prevent the spread of infection to others Wash your hands with soap and water for at least 20 seconds. If you cannot use soap and water, use hand medical anthropologist. Avoid touching your mouth, face, eyes, or nose. Cough or sneeze into a tissue or your sleeve or elbow. Do not cough or sneeze into your hand or into the air. Contact a doctor if: You are getting worse, not better. You have any of these: ?A fever or chills. ?Brown or red mucus in your nose. ?Yellow or brown fluid (discharge)coming from your nose. ?Pain in your face, especially when you bend forward. ?Swollen neck glands. ?Pain when you swallow. ?White areas in the back of your throat. Get help right away if: You have shortness of breath that gets worse. You have very bad or constant: ?Headache. ?Ear pain. ?Pain in your forehead, behind your eyes, and over your cheekbones (sinus pain). ?Chest pain. You have long-lasting (chronic) lung disease along with any of these: ?Making high-pitched whistling sounds when you breathe, most often when you breathe out (wheezing). ?Long-lasting cough (more than 14 days). ?Coughing up blood. ?A change in your usual mucus. You have a stiff neck. You have changes in your: ?Vision. ?Hearing. ?Thinking. ?Mood. These symptoms may be an emergency. Get help right away. Call 911. Do not wait to see if the symptoms will go away. Do not drive yourself to the hospital. Summary An upper respiratory infection (URI) is caused by a germ (virus). The most common type of URI is often called the common cold. URIs usually get better within 7 10 days. Take vjqt-lnq-inkvzzn and prescription medicines only as told by your doctor. This information is not intended to replace advice given to you by your health care provider. Make sure you discuss any questions you have with your health care provider. Document Revised: 10/27/2021 Document Reviewed: 10/27/2021 [employer] Patient Education 2023 [employer]. Follow Up Care 12/22/2023 18:03:52 With:Reese Hart Address: [address] [place] [phone] Business (1) When:12/25/2023 21:14:11 Comments:Call to schedule a follow-up appointment with your field service consultant for further management of care of the tachycardia. Use the Zofran as needed for nausea. Return to the ED for for any new or worsening symptoms. With:MEIR DE GUZMAN Address: [address] [place] [phone] Business (1) When:Within 3 Day(s) [facility] 12-22-2023 Note ED Patient Education Note Infectious Disease Upper Respiratory Infection, Adult An upper respiratory infection (URI) affects the nose, throat, and upper airways that lead to the lungs. The most common type of URI is often called the common cold. URIs usually get better on their own, without medical treatment. What are the causes? A URI is caused by a germ (virus). You may catch these germs by: ? Breathing in droplets from an infected person's cough or sneeze. ? Touching something that has the germ on it (is contaminated) and then touching your mouth, nose, or eyes. What increases the risk? You are more likely to get a URI if: ? You are very young or very old. ? You have close contact with others, such as at work, school, or a health care facility. ? You smoke. ? You have long-term (chronic) heart or lung disease. ? You have a weakened disease-fighting system (immune system). ? You have nasal allergies or asthma. ? You have a lot of stress. ? You have poor nutrition. What are the signs or symptoms? ? Runny or stuffy (congested) nose. ? Cough. ? Sneezing. ? Sore throat. ? Headache. ? Feeling tired (fatigue). ? Fever. ? Not wanting to eat as much as usual. ? Pain in your forehead, behind your eyes, and over your cheekbones (sinus pain). ? Muscle aches. ? Redness or irritation of the eyes. ? Pressure in the ears or face. How is this treated? URIs usually get better on their own within 7?10 days. Medicines cannot cure URIs, but your doctor may recommend certain medicines to help relieve symptoms, such as: ? Wqxa-bdp-bjdndci cold medicines. ? Medicines to reduce coughing (cough suppressants). Coughing is a type of defense against infection that helps to clear the nose, throat, windpipe, and lungs (respiratory system). Take these medicines only as told by your doctor. ? Medicines to lower your fever. Follow these instructions at home: Activity ? Rest as needed. ? If you have a fever, stay home from work or school until your fever is gone, or until your doctor says you may return to work or school. ? You should stay home until you cannot spread the infection anymore (you are not contagious). ? Your doctor may have you wear a face mask so you have less risk of spreading the infection. Relieving symptoms ? Rinse your mouth often with salt water. To make salt water, dissolve ??1 tsp (3?6 g) of salt in 1 cup (237 mL) of warm water. ? Use a cool-mist humidifier to add moisture to the air. This can help you breathe more easily. Eating and drinking ? Drink enough fluid to keep your pee (urine) pale yellow. ? Eat soups and other clear broths. General instructions ? Take odmb-xhw-dzwcuyi and prescription medicines only as told by your doctor. ? Do not smoke or use any products that contain nicotine or tobacco. If you need help quitting, ask your doctor. ? Avoid being where people are smoking (avoid secondhand smoke). ? Stay up to date on all your shots (immunizations), and get the flu shot every year. ? Keep all follow-up visits. How to prevent the spread of infection to others ? Wash your hands with soap and water for at least 20 seconds. If you cannot use soap and water, use hand medical anthropologist. ? Avoid touching your mouth, face, eyes, or nose. ? Cough or sneeze into a tissue or your sleeve or elbow. Do not cough or sneeze into your hand or into the air. Contact a doctor if: ? You are getting worse, not better. ? You have any of these: ? A fever or chills. ? Brown or red mucus in your nose. ? Yellow or brown fluid (discharge)coming from your nose. ? Pain in your face, especially when you bend forward. ? Swollen neck glands. ? Pain when you swallow. ? White areas in the back of your throat. Get help right away if: ? You have shortness of breath that gets worse. ? You have very bad or constant: ? Headache. ? Ear pain. ? Pain in your forehead, behind your eyes, and over your cheekbones (sinus pain). ? Chest pain. ? You have long-lasting (chronic) lung disease along with any of these: ? Making high-pitched whistling sounds when you breathe, most often when you breathe out (wheezing). ? Long-lasting cough (more than 14 days). ? Coughing up blood. ? A change in your usual mucus. ? You have a stiff neck. ? You have changes in your: ? Vision. ? Hearing. ? Thinking. ? Mood. These symptoms may be an emergency. Get help right away. Call 911. ? Do not wait to see if the symptoms will go away. ? Do not drive yourself to the hospital. Summary ? An upper respiratory infection (URI) is caused by a germ (virus). The most common type of URI is often called the common cold. ? URIs usually get better within 7?10 days. ? Take rnkf-nny-kopcrqw and prescription medicines only as told by your doctor. This information is not intended to replace advice given (more content not included)... [facility] 12-22-2023 Evaluation + Plan note Diagnostic Tests PendingGroup A Strep by PCR 12/22/23 [facility] 08-18-2023 History of Presen t illness Narrative [...] Prescribed waist high compression stockings. Discussed what jqsv-lzt-kkdrmjq medications to avoid. Patient's mother reports that [...] her mother that there was and outside field service consultant note describing that the 2021 echocardiogram was [...] work, and management. documented in this encounter [facility] Work Phone: 08-18-2023 Instructions Claudia Rubio RN [...] FACC, FACP, FHRS documented in this encounter [facility] Work Phone: 05-05-2023 History of Presen t [...] We did review that some records through [employer] everywhere [place] were obtained. There are cardiology notes and [...] , and symptoms improved with empirical EULALIA beta-carmelina and midodrine. Will increase midodrine as she still has episodes of syncope. Patient was unable to tolerate Zio patch due to adhesive allergy. As echocardiogram in the past was reportedly unremarkable, will monitor by symptoms. If increased symptoms then would attempt [facility] monitor if patient is able to tolerate [...] her mother that there was and outside field service consultant note describing that the 2021 echocardiogram was unremarkable. Greater than 50% of the visit for counseling regarding syncope, near syncope, tachycardia, evaluation, and previous cardiology notes. Consider implantable loop recorder in future. Patient family appreciative care. All questions answered. documented in this encounter [facility] Work Phone: 05-05-2023 Instructions Claudia Rubio RN [...] up with Dr. Fabian in 6 months ICLAUDIA RN, AM SCRIBING FOR AND IN THE PRESENCE OF DR. 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 Michaels for Consult and Syncope History Of Present Illness: Arabella Knott is a 18 y.o. female presenting with [facility] care. Accompanied by her mother. The patient has remote syncope and recurrent dizziness and near syncope. [facility]. She is uncertain of [...] care. All questions answered. documented in this [facility] Work Phone: 1(469) 684-559311-27-2023 Instructions* Patient Instructions* Vito Ramos LPN - 03/06/2023 11:40 AM EST Daniele office visit 2023 Acebutolol 200 mg BID Midodrine 2.5 mg TID 2 two week zio patches. Echo soon [facility] 1(317) 485-294109-01-2023 Evaluation note* Encounter Date Diagnosis Assessment Notes [...] pharmacy is unable to get Adderall XR [employer] Other 06-05-2023 Evaluation note* Encounter Date Diagnosis Assessment Notes Treatment Notes Treatment Clinical Notes Sep, Dysautonomia (ICD-10 - G90.1) Pt agrees to stop beta carmelina and trial of midodrine. Will contact cardio in [place], per their preference. 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 Vitals are stable. [employer] Other 03-16-2023 Evaluation note* Encounter Date Diagnosis Assessment Notes Treatment Notes Treatment Clinical Notes Jun, Acute non-recurrent pansinusitis (ICD-10 - J01.40) Advise she repeat home COVID test based on her symptoms. 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 Advised handwashing and other masking protocol. [employer] Other 01-09-2023 Evaluation note* Encounter Date Diagnosis [...] verbalized understanding and agreement with treatment plan. [employer] Other 09-20-2022 NotePROCEDURE: XR ANKLE RT MIN [...] Electronically authenticated by: SANDRA ROSSI Date: 2021-12-28 14:03[facility]09-20-2022 NotePROCEDURE: XR ANKLE RT MIN 3 [...] Electronically authenticated by: SANDRA ROSSI Date: 2021-12-28 14:03[facility]09-14-2022 NotePROCEDURE: XR ANKLE RT MIN 3 VIEWS COMPARISON: None. HISTORY: Arthralgia of the ankle and/or foot FINDINGS: BONES:No fracture, acute abnormality, or significant arthropathy. SOFT TISSUES:Negative. No visible soft tissue swelling. EFFUSION:None visible. OTHER: Negative. IMPRESSION: No acute abnormality Electronically authenticated by: TATE GUERRERO Date: 2021-12-22 07:09[facility]08-11-2022 Evaluation note* Encounter Date Diagnosis Assessment Notes Treatment Notes Treatment Clinical Notes Nov, Urticaria (ICD-10 - L50.9) Drink plenty fluids, get plenty of rest. Take the prednisone as prescribed until gone. Take Benadryl as needed for itching. Follow-up with your family physician if no improvement in 2 to 3 days. Nov, Other Contact dermati tis home care material was printed [employer] Other 04-01-2010 History general Narrative - Reported* Type Description Date Medical History Gerd Medical History Hypertension Medical History TMJ Medical History Headaches Medical History Tachycardia Surgical History T&A 07/2009 Surgical History Tubes in ears 2013 [employer] Other Chief complaint Narrative - ReportedKENDALL HEDY is being seen for SELF REFERRAL.-[facility] DO Work Phone: Chipa complaint Narrative - ReportedKENDALL HEDY is being seen for SELF REFERRAL[facility] Work Phone: Evaluation noteNo InformationNort PlaceBlogger Other Evaluation noteNo assessment information available [facility] Work Phone: Evaluation note* Diagnosis Vaso vagal episode- Primary Syncope and collapse Vasovagal syncope Syncope and collapse Essential hypertension Unspecified essential hypertension Palpitations Shortness of breath Orthostatic hypotension Mixed bipolar affective disorder, moderate (CMS/HCC) Bipolar I disorder, most recent episode (or current) mixed, moderate documented in this encounter [facility] Work Phone: Evaluation note* Diagnosis Orthostatic hypotension- Primary Palpitations Shortness of breath Vasovagal syncope Syncope and collapse Encounter for medication review and counseling Encounter to discuss treatment options documented in this encounter [facility] Work Phone: Evaluation note* Diagnosis Orthostatic hypotension- Primary Vasovagal syncope Syncope and collapse Shortness of breath Palpitations Encounter for medication review and counseling Obesity, morbid, BMI 40.0-49.9 (Multi) Never smoked cigarettes Near syncope documented in this encounter [facility] Work Phone: Evaluation note* Diagnosis COVID-19- Primary Pharyngitis, unspecified etiology Nausea and vomiting, unspecified vomiting type [facility] Diagnosis Migraine with aura and without status migrainosus, not intractable documented in this encounter [facility] Work Phone: History general Narrative - Reported* [...] in ears 2012 Hospitalization History SEE SURGICAL [employer] Other History general Narrative - Reported* Type [...] in ears 2012 Hospitalization History SEE SURGICAL HX [employer] Other History of Present illness Narrative* 17-year-old [...] if interval problems arise. * Thank you -[facility] DO Work Phone: Hospital course Narrative No data available for this section [facility] Progress note No data available for this section [facility] Family History Unknown Family Member Name Dates Details Family [...] coagulatio n disorder: Paternal Relatives(V18.3, Z83.2) Status:Active Summary Purpose Advance Directives Advance Directive Response Recorded Date/ Time Advance Directives No August 16, 2022 7:37am Chief Complaint and Reason for Visit Chief Complaint R42 R00.2 R06.02 Reason for Referral Specialty Diagnoses / Procedures Referred By Contac t Referred To Contact Diagnoses Migraine with aura and without status migrainosus, not intractable Cathleen Woods, CONTRACT ADMINISTRATION SPECIALIST-DIE CUTTER DIAMOND [address] [facility], [facility] [address], [address] [place] [address] Referral ID Status Reason Start Date Expiration Date V isits Requested Visits Authorized [id number] Pending Review 1 1 Specialty Diagnoses / Procedures Referred By Contac t Referred To Contact Diagnoses Shortness of breath Vasovagal syncope Procedures ECG 12 Lead Audra Fabian MD [address] [facility] Office [facility], [address] [place] [address] Referral ID Status Reason Start Date Expiration Date V isits Requested Visits Authorized [id number] Authorized 05/05/2023 05/04/2024 1 1 Specialty Diagnoses / Procedures Referred By Contac t Referred To Contact Diagnoses Palpitations Procedures ECG 12 lead (Clinic Performed) Audra Fabian MD [address] [address] Referral ID Status Reason Start Date Expiration Date V isits Requested Visits Authorized [id number] Authorized 05/05/2023 05/04/2024 1 1 Specialty Diagnoses / Procedures Referred By Contac t Referred To Contact Diagnoses Vaso vagal episode Procedures ECG 12 lead (Clinic Performed) Audra Fabian MD [address] [address] Referral ID Status Reason Start Date Expiration Date V isits Requested Visits Authorized [id number] Pending Review 03/06/2023 03/05/2024 1 1 Specialty Diagnoses / Procedures Referred By Contac t Referred To Contact Cardiology Diagnoses Vasovagal syncope Shortness of breath Procedures Transthoracic Echo (TTE) Complete FL ECHO TRANSTHORC R-T 2D W/WO M-MODE REC F-UP/LMTD FL DOP ECHOCARD COLOR FLOW VELOCITY MAPPING FL DOP ECHOCARD PULSE WAVE W/SPECTRAL F-UP/LMTD STD Audra Fabian MD [address] [address] Referral ID Status Reason Start Date Expiration Date Visits Requested Visits Authorized [id number] Pending Review Perform Procedure 03/05/2024 1 1 Specialty Diagnoses / Procedures Referred By Contac t Referred To Contact Cardiology Diagnoses Vasovagal syncope Procedures Holter Or Event Chief Payroll Clerk Audra Fabian MD [address] [address] Referral ID Status Reason Start Date Expiration Date V isits Requested Visits Authorized [id number] Pending Review 03/06/2023 03/05/2024 1 1 Referral ID Status Reason Start Date Expiration Date V isits Requested Visits Authorized [id number] Pending Review 03/06/2023 03/05/2024 1 1 Additional Source Comments REASON FOR VISIT (unrecogniz ed section and content) Reason Comments Consult Syncope Specialty Diagnoses / Procedures Referred By Contac t Referred To Contact Diagnoses Vaso vagal episode Procedures ECG 12 lead (Clinic Performed) Audra Fabian MD [address] [facility], [address] [address] Referral ID Status Reason Start Date Expiration Date V isits Requested Visits Authorized [id number] Pending Review 03/06/2023 03/05/2024 1 1 Reason Comments Follow-up Zio patch- unable to wear due to allergic reaction Specialty Diagnoses / Procedures Referred By Contac t Referred To Contact Cardiology Diagnoses Vasovagal syncope Procedures Holter or Event Chief Payroll Clerk Audra Fabian MD [address] [facility], [address] [address] Referral ID Status Reason Start Date Expiration Date V isits Requested Visits Authorized [id number] Authorized 04/27/2023 04/26/2024 1 1 Reason Comments Follow-up 6 months Specialty Diagnoses / Procedures Referred By Contac t Referred To Contact Diagnoses Palpitations Procedures ECG 12 Lead Audra Fabian MD [address] [facility], [address] [address] Referral ID Status Reason Start Date Expiration Date V isits Requested Visits Authorized [id number] Authorized 08/18/2023 08/17/2024 1 1 INFORMATION SOURCE (unrecogn ized section and content) DATE CREATED AUTHOR 06/28/2022 [facility] DATE CREATED AUTHOR AUTHOR'S ORGANIZ ATION 07/15/2022 [employer] DATE CREATED AUTHOR AUTHOR'S ORGANIZ ATION 08/21/2022 [facility] DATE CREATED AUTHOR AUTHOR'S ORGANIZ ATION 12/17/2022 [facility] DATE CREATED AUTHOR AUTHOR'S ORGANIZ ATION 10/27/2023 [facility] DATE CREATED AUTHOR AUTHOR'S ORGANIZ ATION 12/25/2023 [facility] DATE CREATED AUTHOR AUTHOR'S ORGANIZ ATION 12/29/2023 [facility] DATE CREATED AUTHOR AUTHOR'S ORGANIZ ATION 01/05/2024 [facility] DATE CREATED AUTHOR AUTHOR'S ORGANIZ ATION 01/17/2024 [facility] dical Specialists EPIC Care Teams (unrecognized sec tion and content) Team Status: Active Member Role Status Dates Meir De Guzman MD Primary Care Provider Active Team Status: Inactive Member Role Status Dates Meir De Guzman MD Primary Care Provider Active An Michaels MD Attending Provider Active Kylie Marc MD Referring Provider Active [employer] Parts Fabricator Relationship Specialty Start Date End Date Meir De Guzman MD PCP - General 02/08/16 [employer] Fab[employer]ator Relationship Specialty Start Date End Date Meir De Guzman MD [address] [place] [address] PCP - General 02/08/16 Audra Fabian MD [address] [place] [address] Bld[address], [address] [place] [address] Consulting Physician Electrophysiology 05/04/23 An Michaels MD [address] [place] [address] [address], [address] [place] [address] Coating Line Worker Cardiology 05/05/23 [employer] Fabricator Relationship Specialty Start Date End Date Meir De Guzman MD [address] [place] [address] PCP - General 02/08/16 Audra Fabian MD [address], [place] [id number] Consulting Physician Electrophysiology 05/04/23 An Michaels MD [address] [facility] 2, [address] [place], [place] [id number] Coating Line Worker Cardiology 05/05/23 [employer] Fabricator Relationship Specialty Start Date End Date Meir De Guzman MD [address] [facility] [place] [address] PCP - General Family Medicine 02/28/23 [employer] Fabricator Relationship Specialty Start Date End Date Meir De Guzman MD [address] [place] [address] PCP - General 02/08/16 Audra Fabian MD [address] [place] [address] Consulting Physician Electrophysiology 05/04/23 An Michaels MD [address] [facility] [address], [facility] [address] [place] [address] Coating Line Worker Cardiology 05/05/23 Goals (unrecognized section and content) [...] BE BASED ON THE PRIMARY CLINICAL RECORDS. [employer] [facility]. provides no warranty or guarantee of the accuracy or completeness of information in this document.
== END 2024-05-04 16:30 | disposition home or self-care (01) ==
LOC: RAD 16:31
PROVIDERS: PCP Family Medicine; Visit Provider Family Medicine
DX: M25.552 Pain in left hip (principal); M79.605 Pain in left leg; M54.50 Low back pain, unspecified; M51.369 Other intervertebral disc degeneration, lumbar region without mention of lumbar back pain or lower extremity pain
CPT/HCPCS: 72100; 73502

== ENCOUNTER 2024-06-13 15:42 | Outpatient (OUT) | payer OTHER, SELFPAY ==
--- NOTE | 2024-06-13 15:46 | MR_ITS ---
The [address] [address] Patient Name: ARABELLA KNOTT MRN: [id number] date: 2005 Sex: F Assigned Patient Location: MRI Current Patient Location: MRI Accession/Order Number: [id number] Exam Date: 06/13/2024 16:59 Report Date: 06/13/2024 17:19 At the request of: MEIR DE GUZMAN MD Procedure: MR lumbar spine wo con EXAMINATION: MRI LUMBAR SPINE WITHOUT IV CONTRAST CLINICAL HISTORY: LOW BACK PAIN RADIATING TO LEFT LOWER EXTREMITY M54.50 COMPARISON: Lumbar pain radiating into both hips for years. TECHNIQUE: Multiecho imaging was performed in the sagittal and axial planes without contrast administration. FINDINGS: Vertebral body heights appear maintained. No bone marrow edema is present. Spinal cord terminates in normal position on abnormal cord signal. No paraspinal mass. Visualized retroperitoneum demonstrates no acute process. At L1-L2: No posterior disc pathology. No neural canal or foraminal stenosis. At L2-L3: No posterior disc pathology. No neural canal or foraminal stenosis. At L3-L4: Diffuse broad-based disc bulge is present with mild facet joint degenerative changes causing moderate canal and mild bilateral neural foraminal stenosis. At L4-L5: Central extrusion-type disc herniation extending inferiorly along the posterior aspect of the L5 vertebral body. Mild facet joint degenerative changes. Findings are causing moderate canal and mild left-sided foraminal stenosis. At L5-S1: Disc desiccation. Mild broad-based disc bulge. No significant canal or neural foraminal stenosis. 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 Additional moderate canal stenosis is seen at L3-L4 by posterior disc pathology. Impression dictated by: Jimmie Mendoza Jr., D.O.06/13/2024 5:19 PM Dictation Location: [place] [address] Electronically authenticated by: [id number] Y Date: 06/13/2024 17:19
--- OUTSIDE RECORDS SUMMARY | 2024-06-13 15:50 | XMS_ITS | CCD ---
Author Organization [facility] Care Team Providers Care Flexographic Press Plate Setter Name Role Phone Melanie Major Unavailable Meir [...] GUZMAN, DR MEIR Hernandez Consulting Unavailable DE GZUMAN, DR MEIR Hernandez Primary Care Unavailable DE GUZMAN, DR MEIR Hernandez Admitting Unavailable MISC, DR ALEXIS Admitting Unavailable DE GUZMAN, DR MEIR Hernandez Primary Care Unavailable MISC, DR ALEXIS Attending Unavailable MISC, DR ALEXIS Consulting Unavailable MD Meir De Guzman Primary Care Provider MD An Michaels Attending Provider [phone] MD Kylie Marc Referring Provider An Michaels [...] Meir De Guzman MD Primary Care Provider [phone] Audra Fabian MD Unavailable Dani Middleton Attending Unavailable Dani Middleton Attending Unavailable CATHLEEN WOODS Attending Unavailable MEIR DE GUZMAN Primary Care Unavailable GIULIANO BAUMANN Attending Unavailable XAVIER HOOVER Attending Unavailable XAVIER HOOVER Referring Unavailable GIULIANO BAUMANN Attending Unavailable Meir De Guzman MD Primary Care Provider MEIR DE GUZMAN Primary Care Physician Audra Fabian MD Unavailable AUDRA FABIAN Attending Unavailable MEIR DE GUZMAN Primary Care Unavailable JOBY SILVA Attending Unavailable MEIR DE GUZMAN Primary Care Unavailable CATHLEEN WOODS Attending Unavailable MEIR DE GUZMAN Primary Care Unavailable AUDRA FABIAN Attending Unavailable MEIR DE GUZMAN Primary Care Unavailable AUDRA FABIAN Admitting Unavailable AUDRA FABIAN Attending Unavailable MEIR DE GUZMAN Primary Care Unavailable Allergies Allergy Classification Reported Allergen(s) Allergy Type Date of Onset Reaction(s) Facility (10 sources) cariprazine; Translations: [CARIPRAZINE] Drug Allergy 3 Other [facility] (1 source) No Known Medication Allergies; Translations: [No Known Medication Allergies] Propensity to adverse reactions (disorder) [facility] Repository (2 sources) cariprazine Drug Allergy 4 Anaphylaxis [facility] Medications Current Medications Medication Drug Class(es) Dates Sig (Normalized) Sig (Original) acebutolol 200 mg oral capsule (20 sources) beta-Adrenergic Carmelina Start: 03-14-2024 take 1 capsule by mouth twice daily acebutolol (Sectral) 200 mg capsule Indications: Essential hypertension TAKE ONE CAPSULE BY MOUTH TWICE A DAY 180 capsule 3 03/14/2024 Active Start: 03-06-2023 End: 03-05-2024 take 1 capsule [...] 2022 12:00am take 1 capsule by mo uth every twenty-four hours Acebutolol HCl 400 MG 1 capsule Orally Once a day Active End: 03-06-2023 acebutolol (Sectral) 400 mg capsule Take 200 mg by mouth once daily. 0 03/06/2023 Discontinued (Therapy completed) amitriptyline hydrochloride 25 mg oral tablet (3 sources) Tricyclic Antidepressant Start: 01-03-2024 take 1 [...] 12:00am Start: 05-09-2022 take 1 capsule by [facility] every twenty-four hours Adderall XR 15 MG [...] MG 1 tablet Orally twice daily Active Magnesium (3 sources) Magnesium 400 MG as directed Orally Active magnesium oxide 400 mg oral tablet (15 sources) Start: 12-22-2022 End: 08-18-2023 take 1 tablet by mouth in the morning MAGnesium-Oxide 400 (240 Mg) MG tablet Take 400 mg by mouth in the morning. 12/22/2022 Active Start: 07-11-2022 take 1 tablet by [facility] once daily Magnesium Oxide 400 MG Oral Tablet TAKE 1 TABLET DAILY. Quantity: 90 Refills: 3 Ordered: 11-Jul-2022 An Michaels MD Start : 11-Jul-2022 Active midodrine hydrochloride 5 mg oral tablet (14 sources) alpha-Adrenergic Agonist Start: 08-18-2023 End: 08-12-2024 [...] Active sodium chloride 1000 mg oral tablet (3 sources) Start: 08-18-2023 End: 08-17-2024 take 0.5 [...] Nausea/Vomiting, # 12 tab(s), Refills(s) 0, Pharmacy: [facility]/pharmacy #[id number], 172.3, cm, 12/22/23 18:16:00 EDT, Height/Length [...] 10/24/2022 01/15/2024 Discontinued take 1 tablet by [facility] every twelve hours busPIRone HCl 5 [...] 01/15/2024 Discontinued take 1 capsule by mo [facility] every twenty-four hours hydrOXYzine Pamoate 25 MG 1 capsule at bedtime as needed Orally Once a day as needed Active lisdexamfetamine dimesylate 30 mg oral capsule (8 sources) Central Nervous System Stimulant Start: 12-09-2022 End: 05-14-2024 Vyvanse 30 mg capsule Take 1 capsule (30 mg) by mouth if needed. 04/17/2023 05/14/2024 Discontinued (Med List Cleanup) losartan potassium 25 [...] Translations: [Abdominal pain, left upper quadrant] Episodic Administrative/social admission (20 sources) Follow-up status; Translations: [Other specified counseling] Onset: 05-05-2023 05-05-2023 Episodic Anxiety disorders (10 sources) Mixed anxiety and depressive disorder; Translations: [Other specified anxiety disorders] Onset: 04-12-2022 03-28-2023 Chronic Attention-deficit, conduct, and disruptive behavior disorders (10 sources) Attention deficit hyperactivity disorder, predominantly inattentive [...] hypertension] Onset: 06-20-2022 Chronic Headache; including migraine (7 sources) Migraine with aura, not intractable, without status migrainosus; Translations: [Migraine with aura] Onset: 11-02-2023 Chronic Headache; including migraine (2 sources) Headache; including migraine; Translations: [Headache, unspecified] Onset: 11-02-2023 Menstrual disorders (14 sources) Abnormal menstrual cycle; Translations: [Unspecified disorders of menstruation and other abnormal bleeding from female genital tract] Chronic Mood disorders (14 sources) Mild recurrent major depression; Translations: [Major [...] (current) use of other medications] Episodic Other nervous system disorders (14 sources) Disturbance of attention; Translations: [Attention or concentration deficit] Chronic Other nervous system disorders (3 sources) Chronotropic incompetence; Translations: [Unspecified disorder of autonomic nervous system] Chronic Other non-traumatic joint disorders (1 source) Pain in right hip Episodic Other nutritional; endocrine; and metabolic disorders (19 sources) Body mass index 40+ - severely [...] Translations: [Insomnia, unspecified] Episodic Residual codes; unclassified (5 sources) Never smoked tobacco; Translations: [Other specified health status] Onset: 08-18-2023 08-18-2023 Episodic Syncope (20 sources) Near syncope; Translations: [Syncope and collapse] Onset: 03-25-2022 Resolved: 03-06-2023 Episodic Transient cerebral ischemia (4 sources) Transient cerebral ischemia; Translations: [Transient cerebral ischemic attack, unspecified] Onset: 08-29-2017 03-28-2023 Chronic Viral infection (11 sources) Disease caused by 2019-nCoV; Translations: [Other specified viral infection] 01-15-2024 Episodic Past or Other Problems Problem Classification Problem Date Documented Date Episodic/Chronic Allergic reactions (1 source) Urticaria, unspecified Onset: 11-18-2021 Resolved: 11-18-2021 Episodic Cardiac dysrhythmias (20 sources) Sinus tachycardia; Translations: [Other specified cardiac dysrhythmias] Onset: 06-27-2022 03-06-2023 Episodic Headache; including migraine (2 sources) Chronic daily headache; Translations: [Chronic daily headache] Onset: 11-02-2023 11-02-2023 Episodic Other circulatory disease (9 sources) Orthostatic hypotension; Translations: [Orthostatic hypotension] Onset: 08-18-2023 03-06-2023 Episodic Other circulatory disease (1 source) Orthostatic hypotension; Translations: [Orthostatic hypotension] Onset: 08-18-2023 Episodic Other connective tissue disease (4 sources) [...] Onset: 12-21-2021 Episodic Other non-traumatic joint disorders (2 sources) Joint pain; Translations: [Pain in unspecified joint] Onset: 11-02-2023 11-02-2023 Episodic Other non-traumatic joint disorders (2 sources) Hypermobility of joint; Translations: [Joint derangement, unspecified] Onset: 11-02-2023 11-02-2023 Episodic Residual codes; unclassified (2 sources) Staring; Translations: [Transient alteration of awareness] Onset: 11-02-2023 11-02-2023 Episodic Residual codes; unclassified (2 sources) Transient alteration of awareness; Translations: [Transient alteration of awareness] Onset: 11-02-2023 Episodic Residual codes; unclassified (2 sources) Other specified health status; Translations: [Other specified health status] Onset: 08-18-2023 Episodic Unclassified (14 sources) Regurgitation; Translations: [Regurgitation] Unclassified (5 sources) Onset: 03-06-2023 Resolved: 11-02-2023 03-06-2023 Results Test Name Value Interpretation Reference Range Facility Laboratory - Microbiology an d Antimicrobial susceptibilityon 01-15-2024 SARS-CoV-2 (COVID-19) RNA PARRISH+probe Ql (Unsp spec) Positive [facility] No Panel Informationon 01-14 FLU A Negative [facility] FLU B Negative [facility] Interpretation and review of laboratory results Abnormal [facility] S. pyogenes DNA PARRISH+probe No m (Unsp spec)on 01-15-2024 Interpretation and review of laboratory results Normal [facility] RESULT Negative [facility] ED Note-Physicianon 12-25-19 ED Note-Physician ED Note-Physician Basic Information Time Seen: Cristóbal ISABEL, Shasha Ford 12/22/2023 18:10 Chief Complaint sore throat and [...] the ED. She will follow-up with her special education math teacher in the next 2 to 3 days. [...] Nausea/Vomiting, # 12 tab(s), Refills(s) 0, Pharmacy: [facility]/pharmacy #[id number], 172.3, cm, 12/22/23 18:16:00 EDT, Height/Length Dosing, 132.7, kg, 12/22/23 18:16:00 EDT, Weight Dosing Basic Metabolic Panel CBC w/ Auto Diff ED Cardiac Monitoring eGFR Extra SST Tube Group A Strep by PCR Oxygen Saturation Oxygen Therapy PT & PTT Rapid COVID Antigen ([facility]) Rapid Strep w/rfx Saline Lock Insert Troponin 0 Hr. UA with Cult Rflx XR Chest Single View Disposition Plan Patient Discharge Condition Stable Discharge Disposition Home Discharge Prescription List Prescriptions Zofran ODT 4 mg Tab-Dis, 4 mg= 1 tab(s), Oral, q8hr, PRN Follow-up With When Contact Information Reese Hart In 3 days 12/25/2023 EDT [address] [place] [address]- [phone] Business (1) Additional Instructions: Call to schedule a follow-up appointment with your special education math teacher for further management of care of the tachycardia. Use the Zofran as needed for nausea. Return to the ED for for any new or worsening symptoms. MEIR DE GUZMAN In 3 days [facility] [place] [address]- Business (1) Additional Instructions: Patient Education Upper Respiratory Infection, Adult, [id number] Attestation Patient seen and evaluated by the physician ortho assistant. Attending physician was present in the emergency department and supervised care. This visit was performed by both the physician and an APC. I performed all aspects of the MDM as documented. This report was transcribed using voice recognition software. Every effort was made to ensure accuracy, however, inadvertently computerized bulk receiver mist (more content not included)... Normal [facility] Comment on above: Result Comment: Elec tronically Signed By: Dani Middleton DO\.br\Date and Time Signed: 12/25/23 07:02 EDT\.br\Electronically Co-Signed By: Shasha Ambrocio PA-C\.br\Date and Time Co-Signed: 12/23/23 00:07 EDT Grp A Strp PCRon 12-23-2023 Grp A Strp Intrl Ctrl Pass Normal [facility] Comment on above: Order Comment: Order Added on by Discern Rule. Performed By: #### 1 [id number] #### [facility] Laboratory [address] [place] [address] S. pyogenes DNA PARRISH+probe Ql (Throat) Negative Normal [facility] Comment on above: Order Comment: Order Added on by Discern Rule. Result Comment: Test ing performed using DNA amplification. Performed By: #### 1 [id number] #### [facility] Laboratory [address] [place] [address] XR Chest Single Viewon 12-22 XR Chest [...] mGy = na DAP = na Normal [facility] BMPon 12-22-2023 Anion gap [Moles/Vol] 13 mmol/L Normal 6-16 [facility] Comment on above: Performed By: #### 2 [id number] #### [facility] [address] [place] [address] Calcium [Mass/Vol] 9.0 mg/dL Normal 8.9-11.1 [facility] Comment on above: Performed By: #### 2 [id number] #### [facility] [address] [place] [address] Chloride [Moles/Vol] 105 mmol/L Normal 101-111 [facility] Comment on above: Performed By: #### 2 [id number] #### [facility] [address] [place] [address] CO2 [Moles/Vol] 25 mmol/L Normal 21-[address] [facility] Comment on above: Performed By: #### 2 [id number] #### [facility] [address] [place] [address] Creatinine [Mass/Vol] 0.6 mg/dL Normal 0.5-1.3 [facility] Comment on above: Performed By: #### 2 [id number] #### [facility] [address] [place] [address] Glucose [Mass/Vol] 95 mg/dL Normal 55-199 [facility] Comment on above: Performed By: #### 2 [id number] #### [facility] [address] [place] [address] Potassium [Moles/Vol] 3.9 mmol/L Normal 3.5-5.3 [facility] Comment on above: Performed By: #### 2 [id number] #### [facility] [address] [place] [address] Sodium [Moles/Vol] 139 mmol/L Normal 135-145 [facility] Comment on above: Performed By: #### 2 [id number] #### [facility] [address] [place] [address] Urea nitrogen [Mass/Vol] 8 mg/dL Normal 5-21 [facility] Comment on above: Performed By: #### 2 [id number] #### [facility] [address] [place] [address] Urea nitrogen/Creatinine [Mass ratio] 13 No Units Normal 10-20 [facility] Comment on above: Performed By: #### 2 [id number] #### [facility] [address] [place] [address] CBC w/ Auto Diffon 4 Basophils/100 WBC (Bld) 0.5 % Normal 0.0-2.0 [facility] Comment on above: Performed By: #### 2 [id number] #### [facility] [address] [place] [address] Basophils/Leukocytes Auto (Bld) [Pure # fraction] 0.1 E9/L Normal 0.0-0.2 [facility] Comment on above: Performed By: #### 2 [id number] #### [facility] [address] [place] [address] Eosinophils (Bld) [#/Vol] 0.1 E9/L Normal 0.0-0.5 [facility] Comment on above: Performed By: #### 2 [id number] #### [facility] [address] [place] [address] Eosinophils/100 WBC (Bld) 0.4 % Normal 0.0-8.0 [facility] Comment on above: Performed By: #### 2 [id number] #### [facility] [address] [place] [address] Erythrocyte distribution width (RBC) [Ratio] 13.3 % Normal 10.9-14.2 [facility] Comment on above: Performed By: #### 2 [id number] #### [facility] [address] [place] [address] Hematocrit (Bld) [Volume fraction] 39.2 % Normal 34.0-46.0 [facility] Comment on above: Performed By: #### 2 [id number] #### [facility] [address] [place] [address] Hemoglobin (Bld) [Mass/Vol] 14.1 g/dL Normal 12.0-16.0 [facility] Comment on above: Performed By: #### 2 [id number] #### [facility] [address] [place] [address] Lymphocytes (Bld) [#/Vol] 2.7 E9/L Normal 1.0-4.0 [facility] Comment on above: Performed By: #### 2 [id number] #### [facility] [address] [place] [address] Lymphocytes/100 WBC (Bld) 18.0 % Normal 14.0-50.0 [facility] Comment on above: Performed By: #### 2 [id number] #### [facility] [address] [place] [address] MCH (RBC) [Entitic mass] 29.7 pg Normal 27.0-34.0 [facility] Comment on above: Performed By: #### 2 [id number] #### [facility] [address] [place] [address] MCHC (RBC) [Mass/Vol] 35.8 g/dL Normal 31.4-36.0 [facility] Comment on above: Performed By: #### 2 [id number] #### [facility] [address] [place] [address] MCV (RBC) [Entitic vol] 82.8 fL Normal 80.0-100.0 [facility] Comment on above: Performed By: #### 2 [id number] #### [facility] [address] [place] [address] Monocytes (Bld) [#/Vol] 0.8 E9/L Normal 0.2-1.0 [facility] Comment on above: Performed By: #### 2 [id number] #### [facility] [address] [place] [address] Neutrophils (Bld) [#/Vol] 11.4 E9/L High 2.0-7.5 [facility] Comment on above: Performed By: #### 2 [id number] #### [facility] [address] [place] [address] Neutrophils/100 WBC (Bld) 75.6 % High 36.0-75.0 [facility] Comment on above: Performed By: #### 2 [id number] #### [facility] [address] [place] [address] Platelet 322.0 E9/L Normal 150.0-500.0 [facility] Comment on above: Performed By: #### 2 [id number] #### [facility] [address] [place] [address] Platelet mean volume (Bld) [Entitic vol] 7.5 fL Normal 6.4-10.8 [facility] Comment on above: Performed By: #### 2 [id number] #### [facility] [address] [place] [address] RBC (Bld) [#/Vol] 4.7 E12/L Normal 4.3-5.9 [facility] Comment on above: Performed By: #### 2 [id number] #### [facility] [address] [place] [address] WBC corrected for nucl RBC Auto (Bld) [#/Vol] 15.0 E9/L High 4.0-11.[address] [facility] Comment on above: Result Comment: Cally pheral smear review performed. Performed By: #### 2 [id number] #### [facility] [address] [place] [address] CHEMISTRYOrdered By: SYSTEM SYSTEM on 12-22-2023 Anion [...] 33.1 s Normal 25.1 - 36.5 second(s) [facility] Auto Coag Comment on above: Interpretive Data: P arameter 15 days - 4 weeks 1 - 5 months 6 - 11 months 1 - 5 years 6 - 10 years 11 - 17 years PTT Mean: 35.4 (27.6-45.6) Mean: 33.5 (24.8-40.7) Mean: 32.4 (25.1-40.7) Mean: 31.6 (24.0-39.2) Mean: 31.6 (26.9-38.7) Mean: 31.0 (24.6-38.4) Pediatric Reference ranges were obtained from a study by hung Mayo prepared from 1437 samples obtained at 7 different centers using the same coagulation reagent and instrumentation as [facility]. Currently there are no coagulation studies available worldwide for children to 14 days, and no normal ranges. Heparin therapeutic range (represented by Anti-Factor Xa activity of 0.2 - 0.4 U/mL) corresponds to PTT of 56.6 - 109.0 sec. INR Coag (PPP) [Relative time] 1.02 {INR} Invalid Interpretation Code [facility] Auto Coag Comment on above: Interpretive Data: I NR results are specifically intended to assess patients stabilized on long-term Anticoagulation therapy suggested INR s Less Intensive Anticoagulation 2.0 3.0 Conventional Range 3.0 4.5 PT Coag (PPP) [Time] 11.4 s Normal 9.4 - 1 2.5 second(s) [facility] Co[facility] Comment on above: Interpretive Data: 1 5 days - 4 weeks 1 - 5 months 6 -11 months 1 5 years 6 10 years 11 -17 years Mean: 11.2 (9.5 12.6) Mean: 11.0 (9.7 12.8) Mean: 11.0 (9.8 13.0) Mean: 11.3 (9.9 13.4) Mean: 11.7 (10.0 14.6) Mean: 11.8 (10.0 - 14.1) Pediatric Reference ranges were obtained from a study by Dewey Mcville, et al. prepared from 1437 samples obtained at 7 different centers using the same coagulation reagent and instrumentation as [facility]. Currently there are no coagulation studies available worldwide for children to 14 days, and no normal ranges. ED Clinical Summaryon 2023 ED Clinical Summary ED Clinical Summary [place] [id number] ED Clinical Summary Person Information Name: ARABELLA KNOTT/[facility] Age: 18 Years : 2005 Sex: Female Language: Bahamian PCP: MEIR DE GUZMAN MD Marital Status: [...] 12/22/2023 21:19:02 12/22/2023 21:19:02 12/22/2023 21:19:02 ADDRESS: [address] [place] [phone] PHYS DOC NOTES: MEDICAL INFORMATION: Prescriptions Given: New Medications [id number], [address], [place] [id number], [phone] ondansetron (Zofran ODT 4 mg Tab-Dis) 1 Tablets By Mouth every 8 hours as needed Nausea/Vomiting. Refills: 0. PATIENT EDUCATION INFORMATION: Instructions: Upper Respiratory Infection, Adult, Ptvl-[id number]-[id number] Follow up: With: Address: When: Reese Hart [address] [place] [address] [phone] Business (1) In 3 days 12/25/2023 Comments: Call to schedule a follow-up appointment with your special education math teacher for further management of care of the tachycardia. Use the Zofran as needed for nausea. Return to the ED for for any new or worsening symptoms. With: Address: When: MEIR DE GUZMAN [address] [place] [id number] Business (1) In 3 days DIAGNOSIS: Acute URI; Nausea; Tachycardia Normal [facility] ED Patient Summaryon 024 ED Patient Summary ED Patient Summary [place] [id number] Patient Discharge Instructions Person Information Name: ARABELLA KNOTT Age: 18 Years Arrival Date: 12/22/2023 18:01:08 Discharge Diagnosis: Acute URI; Nausea; Tachycardia Primary Care Physician: MEIR DE GUZMAN MD Provider Information Primary Provider: Dani Middleton DO [employer] Inspector Trimmer:Shasha Ambrocio PA-C The exam and treatment you received in the Emergency Department were for an urgent problem and are not intended as complete care. It is important that you follow up with a doctor, nurse practitioner, or physician?s ortho assistant for ongoing care. If your symptoms [...] Follow-up Instructions: With: Address: When: Reese Hart [address] [place] [phone] [employer] (1) In 3 days 12/25/2023 Comments: Call to schedule a follow-up appointment with your special education math teacher for further management of care of the tachycardia. Use the Zofran as needed for nausea. Return to the ED for for any new or worsening symptoms. With: Address: When: MEIR DE GUZMAN [address] [place], [place] [id number] [employer] (1) In 3 days In the event that this physician does not participate in your insurance network, please consult with your insurance company to find a nearby participating provider. Patient Education Materials: Upper Respiratory Infection, Adult, Bvho-ef-Zhmd A MESSAGE TO ALL PATIENTS REGARDING OPIOIDS PRESCRIPTION OPIOIDS: WHAT YOU NEED TO KNOW Prescription opioids can be used to help relieve ajxvlfsz-lz-skadof pain and are often prescribed following a [...] them do (more content not included)... Normal [facility] HEMATOLOGYOrdered By: SYSTEM SYSTEM on 12-22-2023 Basophils/100 [...] NEG Ctl Pass (12/22/23 6:58 PM) Normal [facility] Man Sero Rapid COV Int POS Ctl Pass (12/22/23 6:58 PM) Normal [facility] S. pyogenes Ag IA.rapid Ql (Throat) Negative (12/22/23 6:58 PM) Normal Negative [facility] SARS-CoV+SARS-CoV-2 (COVID-19) Ag IA.rapid Ql (Resp) Not Detected 7 (12/22/23 6:58 PM) Normal Not Detected [facility] Comment on above: Interpretive Data: Yonathan tracy [employer] Veritor System for Rapid Detection of SARS-CoV-2 [...] Coag (PPP) [Time] 33.1 second(s) Normal 25.1-36.5 [facility] Comment on above: Result Comment: Para meter 15 days - 4 weeks 1 - 5 months 6 - 11 months 1 - 5 years 6 - 10 years 11 - 17 years PTT Mean: 35.4 (27.6-45.6) Mean: 33.5 (24.8-40.7) Mean: 32.4 (25.1-40.7) Mean: 31.6 (24.0-39.2) Mean: 31.6 (26.9-38.7) Mean: 31.0 (24.6-38.4) Pediatric Reference ranges were obtained from a study by Dewey Junior et al. prepared from 1437 samples obtained at 7 different centers using the same coagulation reagent and instrumentation as [facility]. Currently there are no coagulation studies available worldwide for children to 14 days, and no normal ranges. Heparin therapeutic range (represented by Anti-Factor Xa activity of 0.2 - 0.4 U/mL) corresponds to PTT of 56.6 - 109.0 sec. Performed By: #### 1 [id number] #### [facility] [address] [place] [address] INR Coag (PPP) [Relative time] 1.02 {INR} Invalid Interpretation Code [facility] Comment on above: Result Comment: INR results are specifically intended to assess patients stabilized on long-term Anticoagulation therapy suggested INR?s ?Less Intensive Anticoagulation? 2.0 ? 3.0 Conventional Range 3.0 ? 4.5 Performed By: #### 1 [id number] #### [facility] [address] [place] [address] PT Coag (PPP) [Time] 11.4 second(s) Normal 9.4-12.5 [facility] Comment on above: Result Comment: 15 d [...] ranges were obtained from a study by Dewey Junior et al. prepared from 1437 samples obtained at 7 different centers using the same coagulation reagent and instrumentation as [facility]. Currently there are no coagulation studies available worldwide for children to 14 days, and no normal ranges. Performed By: #### 1 [id number] #### [facility] [address] [place] [address] Rapid COVID Antigen ([facility])on 12-22-2023 Rapid COV Int NEG Ctl Pass Normal [facility] Comment on above: Performed By: #### 2 [id number] #### [facility] [address] [place] [address] Rapid COV Int POS Ctl Pass Normal [facility] Comment on above: Performed By: #### 2 [id number] #### [facility] [address] [place] [address] SARS-CoV+SARS-CoV-2 (COVID-19) Ag IA.rapid Ql (Resp) Not detected Normal Not Detected [facility] Comment on above: Result Comment: The [employer]? System for Rapid Detection of SARS-CoV-2 is [...] other viruses or pathogens; and, in the [facility], this test is only authorized for the duration of the declaration that circumstances exist justifying the authorization of emergency use of in vitro diagnostics for detection and/or diagnosis of the virus that causes COVID-19 under Section 564(b)(1) of the Act, 21 U.S.C. ? 360bbb-3(b)(1), unless the authorization is terminated or revoked sooner. Performed By: #### 2 [id number] #### [facility] [address] [place] [address] Rapid Strep w/rfxon 12-22-19 24 S. pyogenes Ag IA.rapid Ql (Throat) Negative Normal Negative [facility] Comment on above: Performed By: #### 2 [id number] #### [facility] [address] [place] [address] Troponin 0 Hr.on 12-22-2023 Troponin HS <2.30 Low 10.10-27.10 [facility] Comment on above: Result Comment: The 95% CI (Confidence Interval) PPV (Positive Predictive Value) for myocardial infarction in females is 38 pg/mL, in males 51 pg/mL. The results should be used in conjunction with clinical conditions of myocardial infarction. (Access High Sensitivity Troponin I Instructions For Use, Sandra Cesar, November 2017) Performed By: #### 1 [id number] #### [facility] [address] [place] [address] UA with Cult Rflxon 12-22-19 24 Bilirubin Ql (U) Negative Normal Negative [facility] Comment on above: Performed By: #### 4 [id number] #### [facility] [address] [place] [address] Clarity (U) Clear Normal Clear [facility] Comment on above: Performed By: #### 4 [id number] #### [facility] [address] [place] [address] Color (U) Light-Yellow Normal Yellow [facility] Comment on above: Result Comment: Micr oscopic readings are only performed on those samples that meet specific criteria set forth by [facility]. Performed By: #### 4 [id number] #### [facility] [address] [place] [address] Glucose Ql (U) Negative Normal Negative [facility] Comment on above: Performed By: #### 4 [id number] #### [facility] [address] [place] [address] Hemoglobin Auto test strip (U) [Mass/Vol] Negative Normal Negative [facility] Comment on above: Performed By: #### 4 [id number] #### [facility] [address] [place] [address] Ketones Auto test strip Ql (U) Negative Normal Negative [facility] Comment on above: Performed By: #### 4 [id number] #### [facility] [address] [place] [address] Leukocyte esterase Auto test strip Ql (U) Negative Normal Negative [facility] Comment on above: Performed By: #### 4 [id number] #### [facility] [address] [place] [address] Nitrite Auto test strip Ql (U) Negative Normal Negative [facility] Comment on above: Performed By: #### 4 [id number] #### [facility] [address] [place] [address] pH (U) 6.5 [pH] Invalid Interpretation Code 5.0-9.0 [facility] Comment on above: Performed By: #### 4 [id number] #### [facility] [address] [place] [address] Protein Ql (U) Negative Normal Negative [facility] Comment on above: Performed By: #### 4 [id number] #### [facility] [address] [place] [address] Specific gravity (U) [Rel density] 1.015 Invalid Interpretation Code 1.005-1.030 [facility] Comment on above: Performed By: #### 4 [id number] #### [facility] [address] [place] [address] Urobilinogen (U) [Mass/Vol] Negative Normal Negative [facility] Comment on above: Performed By: #### 4 [id number] #### [facility] [address] [place] [address] Type of Urine collection method Clean Catch Normal [facility] Comment on above: Performed By: #### 4 [id number] #### [facility] [address] [place] [address] URINALYSISOrdered By: SYSTEM SYSTEM on 12-22-2023 Bilirubin Ql (U) Negative Normal Negativemg/ d L FT UA Auto SS Clarity (U) Clear (12/22/23 8:39 PM) Normal Clear [facility] UA Auto SS Color (U) Light-Yellow 1 (12/22/23 8:39 PM) Normal Yellow [facility]A Auto SS Comment on above: Interpretive Data: M icroscopic readings are only performed on those samples that meet specific criteria set forth by [facility]. Glucose Ql (U) Negative Normal Negativemg/d L FT UA Auto SS Hemoglobin Auto test strip (U) [Mass/Vol] Negative Normal Negativemg/d L [facility] UA Auto SS Ketones Auto test strip Ql (U) Negative Normal Negativemg/d L FT UA Auto SS Leukocyte esterase Auto test [...] Urobilinogen (U) [Mass/Vol] Negative Normal Negativemg/d L [facility] UA Auto SS URINALYSISOrdered By: Shasha Ambrocio on 12-22-2023 UA Spec Desc Clean Catch (12/22/23 8:39 PM) Normal [facility] UA Auto SS eGFRon 12-22-2023 eGFR 131 mL/min/1.73 m2 Normal >=[address] [facility] Comment on above: Order Comment: Order added by Discern Expert. Performed By: #### 1 [id number] #### [facility] [address] [place] [address] ECG 12 Leadon 08-18-2023 See [facility] Work Phone: ECG 12 Leadon 05-05-2023 [facility] Work Phone: See [facility] Work Phone: ECG 12 lead (Clinic Performe d)on 05-05-2023 See [facility] Work Phone: ECG 12 lead (Clinic Performe d)on 03-06-2023 See [facility] Work Phone: XR KNEE 4+ VIEWS RIGHTon [...] a) No falls within the last year [facility] [address] DO Work Phone: Tobacco use status CP b) No -[facility] DO Work Phone: CA tilt table teston 023 CA tilt table test [facility] [address] [place] [id number] Cardiology Report Signed Patient: Arabella Knott MR#: [id number] : 2005 Acct:[id number] Age/Sex: 17 / F ADM Date: 08/17/22 Loc: Room: Type: [facility] Attending Dr: An Michaels MD Copies to: [...] was advised 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 Transcribed By: SCARLETT 08/17/22 1543 Dictated By: Kylie Marc MD 08/17/22 1146 Signed By: 08/18/22 1719 [facility] No Panel Informationon 08-17 [facility] DO Work Phone: Cardiac Stress Teston 2022 Cardiac Stress Test Please click on the link to view the study images [facility] Work Phone: Cardiac Stress Test [facility] [place] [facility] DO Work Phone: Office Visit [...] Stress Test; Status:Hold For - Scheduling; Requested for:[id number]; Morbid obesity with BMI of 40.0-44.9, adult Healthy Weight Tips; Status:Complete; Done: 23Zcz3519 Some eating tips that can help you lose weight.; Status:Complete; Done: 51Amn4548 Orthostatic dizziness, Palpitation, Shortness of breath Tilt Table; Status:Hold For - Scheduling; Requested for:[id number]; Primary hypertension Start: Magnesium Oxide 400 MG Oral Tablet; TAKE 1 TABLET DAILY SocHx: Non-smoker Tobacco Use Screening; Status:Complete; Done: [id number] Patient Instructions Please bring all medicines, vitamins, [...] No alco (more content not included)... Normal [facility] Tobacco Screening.on 023 Tobacco use status CPHS b) No -[facility] 250 DO Work Phone: FREE T3on 06-20-2022 FREE T3 2.69 pg/mlL Critically low 2.91-4.70 [facility] Comment on above: Performed By: #### F T3, BMP, TSH #### [facility] [address] [place] [address] Dr. Kimberly Moody FREE T4on 06-20-2022 Free T4 [Mass/Vol] 0.92 ng/dL Normal 0.78-1.34 [facility] Comment on above: Performed By: #### F T4 #### [facility] [address] [address] [address] iKmberly Moody PROF CHEM 8 (BAS METB)on Anion gap [Moles/Vol] 10.5 mmol/L Normal [facility] Comment on above: Performed By: #### F T3, BMP, TSH #### [facility] [address] [place] [address] Dr. Kimberly Moody Calcium [Mass/Vol] 8.6 mg/dL Normal 8.5-10.1 [facility] Comment on above: Performed By: #### F T3, BMP, TSH #### [facility] [address] [place] [address] Dr. Kimberly Moody Chloride [Moles/Vol] 105 mmol/L Normal 98-107 [facility] Comment on above: Performed By: #### F T3, BMP, TSH #### [facility] [address] [address] [address] Kimberly Moody CO2 [Moles/Vol] 28.6 mmol/L Normal 21.0-32.0 [facility] Comment on above: Performed By: #### F T3, BMP, TSH #### [facility] [address] [address] [address] Kimberly Moody Creatinine [Mass/Vol] 0.60 mg/dL Normal 0.55-1.02 Comment on above: Performed By: #### F T3, BMP, TSH #### [facility] [address] [place] [address] Dr. Kimberly Moody EGFR-AF DJIBOUTIAN >60 Normal >=60 [facility] Comment on above: Performed By: #### F T3, BMP, TSH #### [facility] [address] [place] [address] Dr. Kimberly Moody EGFR-NON AF DJIBOUTIAN >60 Normal >=60 Comment on above: Performed By: #### F T3, BMP, TSH #### [facility] [address] [address] [address] Kimberly Moody Glucose [Mass/Vol] 89 mg/dL Normal 74-106 [facility] Comment on above: Performed By: #### F T3, BMP, TSH #### [facility] [address] [address] [address] Kimberly Moody Potassium [Moles/Vol] 4.1 mmol/L Normal 3.5-5.1 [facility] Comment on above: Performed By: #### F T3, BMP, TSH #### [facility] [address] [address] [address] Kimberly Moody Sodium [Moles/Vol] 140 mmol/L Normal 136-145 [facility] Comment on above: Performed By: #### F T3, BMP, TSH #### [facility] [address] [place] [address] Dr. Kimberly Moody Urea nitrogen [Mass/Vol] 9.0 mg/dL Normal 6.4-19.3 [facility] Comment on above: Performed By: #### F T3, BMP, TSH #### [facility] [address] [address] [address] Kimberly Moody Urea nitrogen/Creatinine [Mass ratio] 15.0 mg/mg Normal Comment on above: Performed By: #### F T3, BMP, TSH #### [facility] [address] [address] [address] Kimberly Moody TSHon 06-20-2022 TSH 2.839 uIU/mL Normal 0.516-4.[address] [facility] Comment on above: Performed By: #### F T3, BMP, TSH #### [facility] [address] [address] [address] Kimberly Moody Cardiovasc Arrhythmia Result son 06-15-2022 Cardiovasc Arrhythmia Results Reason For Visit Reason for Visit: Holter Monitor: ARABELLA is here for the application of a 24 hour Holter monitor. Ordering Physician: Dr. An Michaels MD Diagnosis: Near syncope/ Palpitations [facility] equipment agreement signed. ARABELLA understands monitor is to be returned on: 06/16/2022 Monitor number [id number] applied. Holter monitor returned and downloaded Holter [...] Future Appointments Date/TimeProviderSpec ialtySite 06/27/2022 01:00 PMAn Michaels [id number] [facility] [address] DO Signatures Electronically signed by : Malathi Read L.P.N.; Jun 17 2022 10:51AM EST (Author) Electronically signed by : An Michaels MD; Jun 19 2022 10:35PM EST (Author) Normal [facility] Office Visit (Cardiology)on 06-06-2022 Follow-up visit Diagnoses/Problems [...] 40.0-44.9, adult Healthy Weight Tips; Status:Complete; Done: 21Tnb2011 Some eating tips that can help you lose weight.; Status:Complete; Done: 51Mpr3527 Near syncope, Palpitation IO Holter Monitor up to 48 Hrs; Status:Active - Perform Order; Requested for:[id number]; Near syncope, Palpitation, Primary hypertension Start: Spironolactone [...] IO EKG Electrocardiogram- 12 Lead; Status:Complete; Done: 04Zml1829 SocHx: Non-smoker Tobacco Use Screening; Status:Complete; Done: 51Vqd0276 Unlinked Stop: amLODIPine Besylate 5 MG Oral [...] in postu (more content not included)... Normal [facility] Tobacco Screening.on 023 Adult depression screening assessment No [facility] DO Work Phone: Fall risk assessment a) No falls within the last year [facility] DO Work Phone: Tobacco use status CP b) No [facility] DO Work Phone: ECHOCARDIO M/2D COMPLETEon 1 05-26-2021 ECHOCARDIO M/2D COMPLETE Patient: ARABELLA KNOTT Exam Date: 03/25/2022 : 2005 Gender:F Ordering : DR MEIR DE GUZMAN M.D. Admission #: [id number] Family : Order #: [id number] CLICK HERE TO VIEW EXAM ECHOCARDIOGRAM REPORT [...] Parham M.D. on 03/31/2022 at 15:06 Normal Vital Signs Date Time Vital Sign Value Performing Clinician Facility 05-14-2024 14:31-0500 Body height 167.6 cm Audra Fabian MD Work Phone: [facility] 05-14-2024 14:31-0500 Body mass index (BMI) [Ratio] 48.74 kg/m2 Audra Fabian MD Work Phone: [facility] 05-14-2024 14:31-0500 Body weight 136.99 kg Audra Fabian MD Work Phone: [facility] 05-14-2024 14:31-0500 Diastolic blood pressure 84 mm[Hg] Audra Fabian MD Work Phone: [facility] Comment on above: recheck left arm seated 128/88 05-14-2024 14:31-0500 Heart rate 72 /min Audra Fabian MD Work Phone: [facility] 05-14-2024 14:31-0500 Systolic blood pressure 140 mm[Hg] Audra Fabian MD Work Phone: [facility] Comment on above: recheck left arm seated 128/88 01-15-2024 16:45-0400 Body temperature 97.39 [degF] I and love and you Workman PA Work Phone: [facility] 01-15-2024 16:45-0400 Body weight 132.5 kg Kaseyaman PA Work Phone: [facility] 01-15-2024 16:45-0400 Diastolic blood pressure 80 mm[Hg] Kaseyaman PA Work Phone: [facility] 01-15-2024 16:45-0400 Heart rate 94 /min Kaseyaman PA Work Phone: [facility] 01-15-2024 16:45-0400 SaO2% (BldA) [Mass fraction] 98 % Kaseyaman PA Work Phone: [facility] 01-15-2024 16:45-0400 Systolic blood pressure 122 mm[Hg] Kaseyaman PA Work Phone: [facility] 12-22-2023 20:30-0400 Body temperature 98.42 [degF] Dani Middleton [facility] 12-22-2023 20:30-0400 Diastolic blood pressure 105 mm[Hg] Dain Middleton [facility] 12-22-2023 20:30-0400 Heart rate 118 /min Dani Middleton [facility] 12-22-2023 20:30-0400 Mean blood pressure 125 mm[Hg] Dani Middleton [facility] 12-22-2023 20:30-0400 Respiratory rate 18 /min Dani Middleton [facility] 12-22-2023 20:30-0400 SaO2% (BldA) [Mass fraction] 96 % Dani Monroye [facility] 12-22-2023 20:30-0400 Systolic blood pressure 165 mm[Hg] Dani Emi [facility] 12-22-2023 19:48-0400 Diastolic blood pressure 119 mm[Hg] Dani Emi [facility] 12-22-2023 19:48-0400 Heart rate 121 /min Dani Emi [facility] 12-22-2023 19:48-0400 Mean blood pressure 133 mm[Hg] Dani Emi [facility] 12-22-2023 19:48-0400 Respiratory rate 15 /min Dani Emi [facility] 12-22-2023 19:48-0400 SaO2% (BldA) [Mass fraction] 96 % Dani Emi [facility] 12-22-2023 19:48-0400 Systolic blood pressure 162 mm[Hg] Dani Emi [facility] 12-22-2023 18:10-0400 Body temperature 98.6 [degF] Dani Emi [facility] 12-22-2023 18:10-0400 Diastolic blood pressure 111 mm[Hg] Dani Emi [facility] 12-22-2023 18:10-0400 Heart rate 133 /min Dani Emi [facility] 12-22-2023 18:10-0400 Respiratory rate 18 /min Dani Emi [facility] 12-22-2023 18:10-0400 SaO2% (BldA) [Mass fraction] 100 % Dani Emi [facility] 12-22-2023 18:10-0400 Systolic blood pressure 147 mm[Hg] Dani Middleton [facility] 08-18-2023 11:31-0400 Body height 165.1 cm Audra Fabian MD Work Phone: [facility] 08-18-2023 11:31-0400 Body mass index (BMI) [Ratio] 48.59 kg/m2 Audra Fabian MD Work Phone: [facility] 08-18-2023 11:31-0400 Body weight 132.45 kg Audra Fabian MD Work Phone: [facility] 08-18-2023 11:31-0400 Diastolic blood pressure 78 mm[Hg] Audra Fabian MD Work Phone: [facility] 08-18-2023 11:31-0400 Heart rate 73 /min Audra Fabian MD Work Phone: [facility] 08-18-2023 11:31-0400 Systolic blood pressure 128 mm[Hg] Audra Fabian MD Work Phone: [facility] 05-05-2023 16:07-0500 Body height 165.1 cm Audra Fabian MD Work Phone: [facility] 05-05-2023 16:07-0500 Body mass index (BMI) [Ratio] 47.76 kg/m2 Audra Fabian MD Work Phone: [facility] 05-05-2023 16:07-0500 Body weight 130.18 kg Audra Fabian MD Work Phone: [facility] 05-05-2023 16:07-0500 Diastolic blood pressure 74 mm[Hg] Audra Fabian MD Work Phone: [facility] 05-05-2023 16:07-0500 Heart rate 64 /min Audra Fabian MD Work Phone: [facility] 05-05-2023 16:07-0500 Systolic blood pressure 126 mm[Hg] Audra Fabian MD Work Phone: [facility] 03-06-2023 12:20-0500 Body height 165.1 cm Audra Fabian MD Work Phone: [facility] 03-06-2023 12:20-0500 Body mass index (BMI) [Ratio] 47.93 kg/m2 Audra Fabian MD Work Phone: [facility] 03-06-2023 12:20-0500 Body weight 130.64 kg Audra Fabian MD Work Phone: [facility] 03-06-2023 12:20-0500 Diastolic blood pressure 84 mm[Hg] Audra Fabian MD Work Phone: [facility] 03-06-2023 12:20-0500 Heart rate 75 /min Audra Fabian MD Work Phone: [facility] 03-06-2023 12:20-0500 Systolic blood pressure 138 mm[Hg] Audra Fabian MD Work Phone: [facility] 12-09-2022 10:30-0400 Body weight 130.64 kg Meir De Guzman Other [employer] Other 12-09-2022 10:30-0400 Diastolic blood pressure 85 mm[Hg] Meir De Guzman Other [employer] Other 12-09-2022 10:30-0400 Systolic blood pressure 135 mm[Hg] Meir De Guzman Other [employer] Other 09-12-2022 10:15-0400 Body height 167.64 cm Meir De Guzman Other [employer] Other 09-12-2022 10:15-0400 Body mass index (BMI) [Ratio] 44.22 kg/m2 Meir De Guzman Other [facility] [employer] Other 09-12-2022 10:15-0400 Body weight 124.29 kg Meir De Guzman Other [place] [employer] Other 09-12-2022 10:15-0400 Diastolic blood pressure 71 mm[Hg] Meir De Guzman Other [place] [employer] Other 09-12-2022 10:15-0400 Systolic blood pressure 119 mm[Hg] Meir De Guzman Other [place] [employer] Other 08-29-2022 11:17-0400 Diastolic blood pressure 90 mm[Hg] Meir De Guzman Work Phone: [email or web address] [place] [facility] DO Work Phone: 08-29-2022 11:17-0400 Diastolic blood pressure 100 mm[Hg] Meir De Guzman Work Phone: [facility] [place] 250 DO Work Phone: 08-29-2022 11:17-0400 Systolic blood pressure 122 mm[Hg] Meir De Guzman Work Phone: [email or web address] [place] 250 DO Work Phone: 08-29-2022 11:17-0400 Systolic blood pressure 134 mm[Hg] Meir De Guzman Work Phone: [facility] [place] 250 DO Work Phone: 08-29-2022 10:37-0400 Body height 165.1 cm Meir De Guzman Work Phone: [email or web address] [employer] 250 DO Work Phone: 08-29-2022 10:37-0400 Body mass index (BMI) [Ratio] 45.76 kg/m2 Meir De Guzman Work Phone: [facility] [place] 250 DO Work Phone: 08-29-2022 10:37-0400 Body surface area Derived from formula 2.26 m2 Meir De Guzman Work Phone: [facility] 250 DO Work Phone: 08-29-2022 10:37-0400 Body weight 124.74 kg Meir De Guzman Work Phone: [facility] 250 DO Work Phone: 08-29-2022 10:37-0400 Diastolic blood pressure 82 mm[Hg] Meir De Guzman Work Phone: [facility] 250 DO Work Phone: 08-29-2022 10:37-0400 Heart rate 74 /min Meir De Guzman Work Phone: [facility] 250 DO Work Phone: 08-29-2022 10:37-0400 Systolic blood pressure 128 mm[Hg] Meir De Guzman Work Phone: [facility] 250 DO Work Phone: 08-29-2022 10:37-0400 99 1 Meir De Guzman Work Phone: [facility] 250 DO Work Phone: Comment on above: BMIPerc 2-20_WPerc 08-29-2022 10:37-0400 61 1 Meir De Guzman Work Phone: [facility] [facility] 250 DO Work Phone: Comment on above: 2-20_SPerc 08-17-2022 11:15-0400 Diastolic blood pressure 106 mm[Hg] MD Meir De Guzman Work Phone: [facility] 08-17-2022 11:15-0400 Heart rate 82 /min MD Meir De Guzman Work Phone: [facility] 08-17-2022 11:15-0400 Systolic blood pressure 158 mm[Hg] MD Meir De Guzman Work Phone: [facility] 08-17-2022 10:41-0400 Body height 165.1 cm MD Meir De Guzman Work Phone: [facility] 08-17-2022 10:41-0400 Body weight 113.39 kg MD Meir De Guzman Work Phone: [facility] 08-17-2022 10:30-0400 SaO2% (BldA) [Mass fraction] 99 % MD Meir De Guzman Work Phone: [facility] 07-11-2022 11:08-0400 Diastolic blood pressure 88 mm[Hg] Meir De Guzman Work Phone: [facility] 250 DO Work Phone: 07-11-2022 11:08-0400 Diastolic blood pressure 86 mm[Hg] Meir De Guzman Work Phone: [facility] 250 DO Work Phone: 07-11-2022 11:08-0400 Systolic blood pressure 130 mm[Hg] Meir De Guzman Work Phone: [facility] 250 DO Work Phone: 07-11-2022 11:08-0400 Systolic blood pressure 128 mm[Hg] Meir De Guzman Work Phone: [facility] 250 DO Work Phone: 07-11-2022 10:52-0400 Body height 165.1 cm Meir De Guzman Work Phone: [facility] 250 DO Work Phone: 07-11-2022 10:52-0400 Body mass index (BMI) [Ratio] 44.1 kg/m2 Meir De Guzman Work Phone: [facility] 250 DO Work Phone: 07-11-2022 10:52-0400 Body surface area Derived from formula 2.23 m2 Meir De Guzman Work Phone: [facility] [employer]Uma 250 DO Work Phone: 07-11-2022 10:52-0400 Body weight 120.2 kg Meir De Guzman Work Phone: [facility] 250 DO Work Phone: 07-11-2022 10:52-0400 Diastolic blood pressure 98 mm[Hg] Meir De Guzman Work Phone: [facility] 250 DO Work Phone: 07-11-2022 10:52-0400 Heart rate 80 /min Meir De Guzman Work Phone: [facility] [employer]-[facility] 250 DO Work Phone: 07-11-2022 10:52-0400 Systolic blood pressure 130 mm[Hg] Meir De Guzman Work Phone: [facility] [employer] 250 DO Work Phone: 07-11-2022 10:52-0400 61 1 Meir De Guzman Work Phone: [facility] [employer] 250 DO Work Phone: Comment on above: 2-20_SPerc 07-11-2022 10:52-0400 99 1 Meir De Guzman Work Phone: [facility] [employer] 250 DO Work Phone: Comment on above: 2-20_WPerc BMIPerc 06-23-2022 11:45-0400 Body height 167.64 cm Meir De Guzman Other Medium Other 06-23-2022 11:45-0400 Body mass index (BMI) [Ratio] 41.96 kg/m2 Meir De Guzman Other Medium Other 06-23-2022 11:45-0400 Body temperature 98.2 [degF] Meir De Guzman Other Medium Other 06-23-2022 11:45-0400 Body weight 117.94 kg Meir De Guzman Other Medium Other 06-23-2022 11:45-0400 Diastolic blood pressure 88 mm[Hg] Meir De Guzman Other Medium Other 06-23-2022 11:45-0400 SaO2% (BldA) [Mass fraction] 98 % Meir De Guzman Other Medium Other 06-23-2022 11:45-0400 Systolic blood pressure 130 mm[Hg] Meir De Guzman Other Medium Other 06-06-2022 14:33-0500 Diastolic blood pressure 100 mm[Hg] Meir De Guzman Work Phone: [email or web address] [employer] 250 DO Work Phone: 06-06-2022 14:33-0500 Diastolic blood pressure 110 mm[Hg] Meir De Guzman Work Phone: [facility] [employer] 250 DO Work Phone: 06-06-2022 14:33-0500 Systolic blood pressure 140 mm[Hg] Meir De Guzman Work Phone: [email or web address] [employer] 250 DO Work Phone: 06-06-2022 14:33-0500 Systolic blood pressure 160 mm[Hg] Meir De Guzman Work Phone: [email or web address] [employer] 250 DO Work Phone: 06-06-2022 13:41-0500 Diastolic blood pressure 100 mm[Hg] Meir De Guzman Work Phone: [facility] 250 DO Work Phone: 06-06-2022 13:41-0500 Systolic blood pressure 144 mm[Hg] Meir De Guzman Work Phone: [facility] 250 DO Work Phone: 06-06-2022 11:38-0500 Diastolic blood pressure 110 mm[Hg] Meir De Guzman Work Phone: [facility] 250 DO Work Phone: 06-06-2022 11:38-0500 Systolic blood pressure 156 mm[Hg] Meir De Guzman Work Phone: [facility] 250 DO Work Phone: 06-06-2022 11:33-0500 Body height 165.1 cm Meir De Guzman Work Phone: [facility] 250 DO Work Phone: 06-06-2022 11:33-0500 Body mass index (BMI) [Ratio] 43.43 kg/m2 Meir De Guzman Work Phone: [facility] 250 DO Work Phone: 06-06-2022 11:33-0500 Body surface area Derived from formula 2.22 m2 Meir De Guzman Work Phone: [facility] 250 DO Work Phone: 06-06-2022 11:33-0500 Body weight 118.39 kg Meir De Guzman Work Phone: [facility] 250 DO Work Phone: 06-06-2022 11:33-0500 Diastolic blood pressure 118 mm[Hg] Meir De Guzman Work Phone: [facility] 250 DO Work Phone: 06-06-2022 11:33-0500 Heart rate 80 /min Meir De Guzman Work Phone: [facility] [employer] 250 DO Work Phone: 06-06-2022 11:33-0500 Systolic blood pressure 160 mm[Hg] Meir De Guzman Work Phone: [email or web address] [place] 250 DO Work Phone: 06-06-2022 11:33-0500 61 1 Meir De Guzman Work Phone: [facility] [email or web address] 250 DO Work Phone: Comment on above: 2-20_SPerc 06-06-2022 11:33-0500 99 1 Meir De Guzman Work Phone: [facility] [email or web address] 250 DO Work Phone: Comment on above: 2-20_WPerc BMIPerc 04-18-2022 16:45-0500 Body height 167.64 cm Meir De Guzman Other Medium Other 04-18-2022 16:45-0500 Body mass index (BMI) [Ratio] 45.19 kg/m2 Meir De Guzman Other Medium Other 04-18-2022 16:45-0500 Body temperature 98.2 [degF] Meir De Guzman Other Medium Other 04-18-2022 16:45-0500 Body weight 127.01 kg Meir De Guzman Other Medium Other 04-18-2022 16:45-0500 Diastolic blood pressure 88 mm[Hg] Meir De Guzman Other Medium Other 04-18-2022 16:45-0500 SaO2% (BldA) [Mass fraction] 97 % Meir De Guzman Other Medium Other 04-18-2022 16:45-0500 Systolic blood pressure 146 mm[Hg] Meir De Guzman Other Medium Other 11-18-2021 14:45-0400 Body height 167.64 cm Melanie Major Other Medium Other 11-18-2021 14:45-0400 Body mass index (BMI) [Ratio] 46.64 kg/m2 Melanie Cuevamond Other Medium Other 11-18-2021 14:45-0400 Body temperature 98.5 [degF] Melanie Cuevamond Other Medium Other 11-18-2021 14:45-0400 Body weight 131.09 kg Melanie Moriah Other Medium Other 11-18-2021 14:45-0400 Diastolic blood pressure 95 mm[Hg] Melanie Moriah Other Medium Other 11-18-2021 14:45-0400 Respiratory rate 18 /min Melanie Moriah Other Medium Other 11-18-2021 14:45-0400 SaO2% (BldA) [Mass fraction] 98 % Melanie Moriah Other Medium Other 11-18-2021 14:45-0400 Systolic blood pressure 154 mm[Hg] Melanie Moriah Other Medium Other Encounters Encounter Date Encounter Type Care Provider Facility Start: 05-19-2024 ambulatory [facility] Start: 05-14-2024 End: 05-14-2024 Office outpatient visit 40 minutes Audra Fabian MD Work Phone: [facility] Comment on above: Orthostatic hypotens ion (Primary Dx); Palpitations; Vasovagal syncope; Obesity, morbid, BMI 40.0-49.9 (Multi); Encounter for medication review and counseling; Encounter to discuss treatment options; Encounter to discuss test results; Never smoked cigarettes; Near syncope Start: 05-14-2024 End: 05-14-2024 ambulatory [facility] Start: 01-15-2024 End: 01-15-2024 ambulatory GIULIANO Wolfe WORKMAN Not Available Start: 01-15-2024 End: 01-15-2024 Office outpatient visit 25 minutes Summer M Workman PA Work Phone: [facility] Comment on above: COVID-19 (Primary Dx ); Pharyngitis, unspecified etiology; Nausea and vomiting, unspecified vomiting type Start: 01-03-2024 End: 01-03-2024 Office outpatient visit 25 minutes Cathleen Hernandez [place] [employer]-L[employer]ATION PARALEGAL Work Phone: [facility] Comment on above: Migraine with aura a nd without status migrainosus, not intractable Start: 01-03-2024 End: 01-03-2024 ambulatory [facility] Start: 12-22-2023 End: 12-22-2023 Emergency department patient visit [facility] Facility:[facility] Start: 11-02-2023 End: 11-02-2023 ambulatory [facility] Start: 11-02-2023 End: 11-02-2023 ambulatory [facility] Amb[facility] Start: 08-18-2023 End: 08-18-2023 ambulatory [facility] Start: 08-18-2023 End: 08-18-2023 Office outpatient visit 40 minutes Audra Fabian MD Work Phone: [facility] Comment on above: Orthostatic hypotens ion (Primary Dx); Vasovagal syncope; Shortness of breath; Palpitations; Encounter for medication review and counseling; Obesity, morbid, BMI 40.0-49.9 (Multi); Never smoked cigarettes; Near syncope Start: 05-14-2023 End: 05-14-2023 ambulatory GIULIANO BAUMANN Not Available Start: 05-05-2023 End: 05-05-2023 Office outpatient visit 40 minutes Audra Fabian MD Work Phone: [facility] Comment on above: Orthostatic hypotens ion (Primary Dx); Palpitations; Shortness of breath; Vasovagal syncope; Encounter for medication review and counseling; Encounter to discuss treatment options Start: 04-17-2023 End: 04-17-2023 ambulatory Meir De Guzman Other Medium Other Start: 04-17-2023 Telephone encounter Meir De Guzman [facility] Start: 03-06-2023 End: 03-06-2023 Office consultation new/estab patient 60 min Audra Fabian MD Work Phone: [facility] Comment on above: Vaso vagal episode ( Primary Dx); Vasovagal syncope; Essential hypertension; Palpitations; Shortness of breath; Orthostatic hypotension; Mixed bipolar affective disorder, moderate (CMS/HCC) Start: 02-28-2023 End: 02-28-2023 ambulatory XAVIER HOOVER Not Available Start: 12-09-2022 End: 12-09-2022 ambulatory Meir De Guzman Other Medium Other Start: 12-09-2022 Office outpatient vi sit 15 minutes Meir De Guzman [facility] Start: 09-30-2022 Telephone encounter Meir schuler Work Phone: [facility] 250 DO Work Phone: Start: 09-12-2022 Telephone encounter Meir schuler Work Phone: [facility] 250 DO Work Phone: Start: 09-12-2022 End: 09-12-2022 ambulatory Meir De Guzman Other Medium Other Start: 09-12-2022 Office outpatient vi sit 15 minutes Meir De Guzman [facility] Start: 08-29-2022 ambulatory MD AN MICHAELS Facilit y: Start: 08-19-2022 Chart Update Meir De Guzman Work Phone: [facility] 250 DO Work Phone: Start: 08-17-[address] Kylie Marc Facility:[id number] Start: 08-17-2022 End: 08-17-2022 ambulatory An Michaels Facility:[facility] Start: 08-17-2022 End: 08-17-2022 ambulatory MD Meir De Guzman Work Phone: [facility] Work Phone: Start: 08-17-2022 End: 08-17-2022 Patient encounter procedure MD Meir De Guzman Work Phone: [facility] Work Phone: Start: 08-02-2022 End: 08-02-2022 ambulatory Meir De Guzman Other Medium Other Start: 08-02-2022 Telephone encounter Meir De Guzman [facility] Start: 07-11-2022 ambulatory MD AN MICHAELS Facilit y: Start: 07-11-2022 Office outpatient vi sit 25 minutes Meir De Guzman Work Phone: [facility] 250 DO Work Phone: Start: 07-11-2022 Patient encounter procedure Meir De Guzman Work Phone: [facility] 250 DO Work Phone: Start: 06-23-2022 End: 06-23-2022 ambulatory Meir De Guzman Other Medium Other Start: 06-23-2022 Office outpatient vi sit 15 minutes Meir De Guzman [facility] Start: 06-23-2022 Telephone encounter Meir GOEL [facility] Start: 06-20-2022 End: 06-21-[address] DOCTOR ROSE Facility:[facility] Start: 06-19-2022 ambulatory MD AN MICHAELS Facilit y: Start: 06-15-2022 ambulatory MD AN MICHAELS Facilit y: Start: 06-15-2022 Patient encounter procedure Meir De Guzman Work Phone: [facility] 250 DO Work Phone: Start: 06-06-2022 ambulatory MD AN MICHAELS Facilit y: Start: 06-06-2022 Office consultation new/estab patient 60 min Meir De Guzman Work Phone: [facility] 250 DO Work Phone: Start: 06-06-2022 Patient encounter procedure Meir De Guzman Work Phone: [facility] 250 DO Work Phone: Start: 05-09-2022 End: 05-09-2022 ambulatory Meir De Guzman Other Medium Other Start: 05-09-2022 Telephone encounter Meir De Guzman [facility] Start: 04-18-2022 End: 04-18-2022 ambulatory Meir De Guzman Other Medium Other Start: 04-18-2022 Office outpatient vi sit 15 minutes Meir De Guzman [facility] Start: 04-12-2022 End: 04-12-2022 ambulatory Meir De Guzman Other Medium Other Start: 04-12-2022 Telephone encounter Meir De Guzman [facility] Start: 03-25-2022 End: 03-26-[address] MEIR DE GUZMAN Facility:[facility] Start: 01-07-2022 End: 01-08-2022 ambulatory MAURILIO JAMISON Facility:[facility] Start: 12-28-2021 End: 12-29-2021 ambulatory MAURILIO JAMISON Facility:[facility] Start: 12-21-2021 End: 12-22-[address] MEIR DE GUZMAN Facility:[facility] Start: 11-18-2021 End: 11-18-2021 ambulatory Melanie Major Other Medium Other Start: 11-18-2021 Office outpatient ne w 20 minutes Melanie Major [facility] Procedures Date Procedure Procedure Detail Performing Clinician Start: 01-15-2024 Iadna streptococcus group a amplified probe tq Summer Aiden Pito [facility] Work Phone: Start: 01-15-2024 STATUS COVID-19/FLU Sum reyes M Pito [facility] Work Phone: Start: 08-18-2023 COMPRESSION STOCKING S 20-30 [facility] AUDRA RUI Start: 08-18-2023 ECG 12-LEAD AUDRA FABIAN Start: 08-18-2023 Ecg routine ecg w/le ast 12 lds w/i&r Audra Fabian MD Work Phone: Start: 05-05-2023 Ecg routine ecg w/le ast 12 lds w/i&r Audra Fabian MD Work Phone: Start: 03-06-2023 Ecg routine ecg w/le ast 12 lds w/i&r Audra Fabian MD Work Phone: Ear Pressure Equaliz ation Tube, Insertion, Bilaterally Meir De Guzman Work Phone: Tonsillectomy and adenoidectomy Meir De Guzman Work Phone: Plan of Treatment Date Care Activity Detail Author Start: 2053 Zoster Vaccines (1 o f 2) Zoster Vaccines (1 of 2) [facility] Start: 05-29-2024 Subsequent hospital visit by physician 05/29/2024 Hospital Encounter [facility] [address] [place] [address] Audra Fabian MD [address] [facility] [address] [place], [place] [id number] [facility] Start: 05-14-2024 End: 05-14-2025 Basic metabolic 2000 panel - Serum or Plasma Basic Metabolic Panel Lab Routine Vasovagal syncope Near syncope Expected: 05/14/2024 (Approximate), Expires: 05/14/2025 [facility] Work Phone: Comment on above: Expected: 05/14/2024 (Approximate), Expires: 05/14/2025 Start: 05-14-2024 End: 05-14-2025 CBC panel - Blood by Automated count CBC Lab Routine Vasovagal syncope Near syncope Expected: 05/14/2024 (Approximate), Expires: 05/14/2025 [facility] Work Phone: Comment on above: Expected: 05/14/2024 (Approximate), Expires: 05/14/2025 Start: 05-14-2024 End: 05-14-2025 PT and aPTT panel - Platelet poor plasma by Coagulation assay Coagulation Screen Lab Routine Vasovagal syncope Near syncope Expected: 05/14/2024 (Approximate), Expires: 05/14/2025 [facility] Work Phone: Comment on above: Expected: 05/14/2024 (Approximate), Expires: 05/14/2025 Start: 02-20-2024 End: 02-20-2024 Patient encounter procedure 02/20/2024 2:20 PM EST Office Visit [facility] [address] [facility] [address] [place] [id number] Audra Fabian MD [address] [facility] [address] [place] [address] [facility] Start: 01-28-2024 Screening for malign ant neoplasm of cervix [facility] Start: 12-10-2023 COVID-19 Vaccine ( season) COVID-19 Vaccine () [facility] Start: 12-10-2023 COVID-19 Vaccine () COVID-19 Vaccine () [facility] Start: 12-10-2023 Influenza vaccination [facility] Start: 11-03-2023 End: 11-03-2023 Patient encounter procedure 11/03/2023 12:20 PM EDT Office Visit [facility] [address] [place] [address] Audra Fabian MD [address] [facility] [address] [place] [address] [facility] Start: 11-02-2023 End: 11-02-2023 Patient encounter procedure [facility] Start: 05-19-2023 End: 05-19-2023 Patient encounter procedure 05/19/2023 11:40 AM EST Office Visit [facility] [address] [place] [address] Audra Fabian MD [address] [facility] [address] [place] [address] [facility] Start: 03-06-2023 End: 03-06-2025 Holter monitor study Holter Or [employer] Package [employer] [facility] Routine Vasovagal syncope Expected: 03/06/2023 (Approximate), Expires: 03/06/2025 [facility] Service Area Work Phone: Comment on above: Expected: 03/06/2023 (Approximate), Expires: 03/06/2025 Start: 03-06-2023 End: 03-06-2025 Heart Transthoracic Transthoracic Echo (TTE) Complete Echocardiography Routine Vasovagal syncope Shortness of breath Expected: 03/06/2023 (Approximate), Expires: 03/06/2025 [facility] Work Phone: Comment on above: Expected: 03/06/2023 (Approximate), Expires: 03/06/2025 Start: 02-17-2023 FUV, Provider: Audra Fabian, Status: Pen, Time: 2:00 PM FUV, Provider: Audra Fabian, Status: Pen, Time: 2:00 PM [facility] Work Phone: Start: 02-13-2023 FUV, Provider: An Michaels, Status: Pen, Time: 10:15 AM FUV, Provider: An Michaels, Status: Pen, [facility]: 10:15 [facility] Work [facility]: Start: 12-09-2022 COVID-19 Vaccine () COVID-19 Vaccine () [facility] Start: 12-09-2022 Influenza vaccination Influenza Vacc ine (#1) [facility] Start: 08-29-2022 FUV, Provider: An Michaels, Status: Pen, Time: 10:00 AM FUV, Provider: An Michaels, Status: Pen, Time: 10:00 AM [facility] Work Phone: Start: 08-17-2022 SURGNONUH, Provider: Kylie Marc, Status: Pen, Time: 11:00 AM SURGNONUH, Provider: Kylie Marc, Status: Pen, Time: 11:00 AM [facility] Work Phone: Start: 08-11-2022 STRESS CHERISE, Provider : [facility] NUCLEAR 01,[id number], Status: Pen, Time: 11:30 AM STRESS CHERISE, Provider: [facility] NUCLEAR 01,[id number], Status: Pen, Time: 11:30 AM [facility] 101 DO Work Phone: Start: 08-11-2022 STRESS CHERISE, Provider : [facility] HHVI NUCLEAR 01,[id number], Status: Pen, Time: 11:00 AM STRESS CHERISE, Provider: [facility] NUCLEAR 01,[id number], Status: Pen, Time: 11:00 AM [facility] Work Phone: Start: 06-27-2022 FUV, Provider: An Michaels, Status: Pen, Time: 1:00 PM FUV, Provider: An Michaels, Status: Pen, Time: 1:00 PM [facility] 250 DO Work Phone: Start: 06-15-2022 HOLTER MON, Provider : CA [id number] PIE FILLER 1,[id number], Status: Pen, Time: 1:30 PM HOLTER MON, Provider: CA TABARES PIE FILLER 1,[id number], Status: Pen, Time: 1:30 PM [facility] DO Work Phone: Start: 2022 Hepatitis B Vaccines (1 of 3 - 19+ 3-dose series) Hepatitis B Vaccines (1 of 3 - 19+ 3-dose series) [facility] Start: 2021 Diabetes mellitus screening Diabetes Screening [facility] Start: 2021 Hepatitis C screening Hepatitis C [facility] Start: 2019 Meningococcal B Vacc ine (1 of 2 - Standard) Meningococcal B Vaccine (1 of 2 - Standard) [facility] Start: 2018 HPV Vaccines (1 - 3-dose series) HPV Vaccines (1 - 3-dose series) [facility] Start: 01-28-2016 Varicella vaccination Varicell a Vaccines (1 of 2 - 13+ 2-dose series) [facility] Start: 2014 HPV Vaccines (1 - 2-dose series) HPV Vaccines (1 - 2-dose series) [facility] Start: 2010 DTaP/Tdap/Td Vaccine s (1 - Tdap) DTaP/Tdap/Td Vaccines (1 - Tdap) [facility] Start: 2007 Hearing Screening (#1) Hearing Scree silvino (#1) [facility] Start: 2006 Well Child Visit (WC V) - Annual Well Child Visit (WCV) - Annual [facility] Start: 01-28-2004 MMR Vaccines (1 of 1 - Standard series) MMR Vaccines (1 of 1 - Standard series) [facility] Start: 01-28-2004 Varicella vaccination Varicell a Vaccines (1 of 2 - 2-dose childhood series) [facility] Start: 2003 COVID-19 Vaccine (#1) COVID-19 Vacci ne (#1) [facility] Start: 2003 Hearing Screening (#1) Hearing Scree silvino (#1) [facility] Start: 2003 Hepatitis B Vaccines (1 of 3 - 3-dose series) Hepatitis B Vaccines (1 of 3 - 3-dose series) [facility] Start: 2003 HIV screening HIV Screening [facility] Start: 2003 Lipid panel Lipid Panel [facility] Start: 2003 Yearly Adult Physical Yearly Adult P hysical [facility] ECG 12 lead (Clinic Performed) ECG 12 lead (Clinic Performed) ECG Routine Orthostatic hypotension Ordered: 05/14/2024 [facility] Service Area Work Phone: Comment on above: Ordered: 05/14/2024 Insertion subq cardi ac rhythm monitor w/prgrmg LOOP INSERTION Vasovagal syncope Near syncope [employer] Payers Date Payer Category Payer Medicaid [employer] [place] [id number] 2022-Present [address] [place] [id number] 2022 Self-pay 2021 Medicaid (Managed Care) [employer] [id number] 2021 Unknown 2003 Unknown [id number] 2.16.840.1.496285.3.579.2. 593 2003 Unknown [id number] 2.16.840.1.131694.3.579.2. 593 2003 Unknown [id number] 2.16.840.1.359658.3.579.2. 356 2003 Unknown [id number] 2.16.840.1.405278.3.579.2. 356 2003 Unknown [id number] 2.16.840.1.205423.3.579.2. 356 2003 Unknown [id number] 2.16.840.1.221844.3.579.2. 356 2003 Unknown [id number] 2.16.840.1.703152.3.579.2. 727 2003 Unknown [id number] 2.16.840.1.736113.3.579.2. 727 2003 Unknown [id number] 2.16.840.1.308590.3.579.2. 1245 2003 Unknown [id number] 2.16.840.1.228263.3.579.2. 1259 2003 Unknown [id number] 2.16.840.1.137559.3.579.2. 1259 2003 Unknown [id number] 2.16.840.1.938702.3.579.2. 1259 2003 Unknown [id number] 2.16.840.1.258593.3.579.2. 1259 2003 Unknown [id number] 2.16.840.1.841657.3.579.2. 1244 2003 Unknown [id number] 2.16.840.1.095419.3.579.2. 1244 2003 Unknown [id number] 2.16.840.1.943409.3.579.2. 1244 2003 Unknown [id number] 2.16.840.1.750918.3.579.2. 1244 2003 Unknown [id number] 2.16.840.1.185995.3.579.2. 1246 1972 Unknown [id number] 2.16.840.1.315852.3.579.2. 593 1972 Unknown [id number] 2.16.840.1.444699.3.579.2. 593 1972 Unknown [id number] 2.16.840.1.078905.3.579.2. 593 1972 Unknown [id number] 2.16.840.1.927862.3.579.2. 356 1972 Unknown [id number] 2.16.840.1.407189.3.579.2. 356 1959 Unknown [id number] 1961 Unknown [id number] Unknown O [id number] Unknown Regular Insurance [id number] Unknown [id number] Social History Date Type Detail Facility Start: 03-06-2023 End: 11-02-2023 Sex Assigned At [facility] Other Start: 03-06-2023 End: 11-02-2023 Lives with mother (single parent) Lives with mother (single parent) [facility] DO Work Phone: Start: 2003 Sex Assigned At Female F [facility] Start: 02-28-2023 End: 03-06-2023 Tobacco smoking status NHIS Never smoked tobacco [facility] Work Phone: Start: 02-28-2023 End: 03-06-2023 Tobacco use and exposure Smokeless tobacco non-user [facility] Work Phone: Start: 03-06-2023 End: 05-14-2024 Alcohol intake Lifetime non-drinker (finding) [facility] Work Phone: Start: 2003 Sex Assigned At Not on file [facility] Work Phone: Start: 02-24-2023 End: 08-18-2023 Exposure to SARS-CoV-2 (event) Not sure [facility] Tobacco smoking status No Smoking Status Entered [facility] Functional Status Date Assessment Result Facility 12-22-2023 Functional Status N/A [facility] Clinical Notes 07-09-2009 to 05-14-2024 Audra Fabian MD - 05/14/2024 2:40 PM ESTPatient InstructionsSuGURINDER Liang - 01/15/2024 4:40 PM Brian Woods APRN-[facility] - 01/03/2024 10:30 AM KENNYTAudra Fabian MD - 08/18/2023 11:20 AM EDT Note Date & Type Note Facility 05-14-2024 History of Presen t illness Narrative Chief Complaint: Follow-up (Pt is here today following up after 6 months ) History Of Present Illness: Arabella Knott is a 19 y.o. female presenting with followup. She is accompanied by her mother. She has recurrent dizziness and near syncope. Last Recorded Vitals: Vitals: 05/14/24 1431 BP: 140/84 BP Location: Left arm Patient Position: Sitting Pulse: 72 Weight: 137 kg (302 lb) Height: 1.676 m (5' 6 ) Past Medical History: See list Past Surgical History: See list Social History: She reports that she has [...] (SECTRAL) 200 mg, oral, 2 times daily amitriptyline (ELAVIL) 25 mg, oral, Nightly midodrine (PROAMATINE) 5 mg, oral, 3 times daily sodium chloride 0.5 g, oral, 2 times daily Review of Systems Constitutional: Negative for malaise/fatigue. Cardiovascular: Positive for syncope. Negative for claudication, cyanosis, irregular heartbeat, leg swelling, orthopnea and paroxysmal nocturnal dyspnea. Split open toe with last syncopal episode Respiratory: Negative for cough, shortness of breath, snoring and wheezing. All other systems reviewed and are negative. Physical Exam: Constitutional: Appearance: Normal and healthy appearance. Well-developed and not in distress. Morbidly obese. Neck: Vascular: No [...] Last Cardiology Tests: ECG: ECG 12 Lead 08/18/2023 Today. NSR. Normal axis. Qtc 430 ms. Lab review: I have personally reviewed the laboratory result(s) see above Assessment/Plan Diagnoses and all orders for this visit: Orthostatic hypotension - ECG 12 lead (Clinic Performed) - Compression Stockings 15-20 mmHg - Compression Stockings 15-20 mmHg Palpitations Vasovagal syncope - Case Request EP Lab: Loop Insertion; Standing - Place in outpatient/hospital ambulatory surgery; Standing - Full code; Standing - Coagulation Screen; Future - CBC; Future - Basic Metabolic Panel; Future - Insert and maintain peripheral IV; Standing - Saline lock IV; Standing - sodium chloride 0.9% infusion - chlorhexidine (Hibiclens) 4 % liquid - mupirocin (Bactroban) 2 % ointment 1 Application - ceFAZolin (Ancef) 3 g in dextrose 5% 50 mL IV - Compression Stockings 15-20 mmHg - Compression Stockings 15-20 mmHg Obesity, morbid, BMI 40.0-49.9 (Multi) Encounter for medication review and counseling Encounter to discuss treatment options Encounter to discuss test results Never smoked cigarettes Near syncope - Case Request EP Lab: Loop Insertion; Standing - Place in outpatient/hospital ambulatory surgery; Standing - Full code; Standing - Coagulation Screen; Future - CBC; Future - Basic Metabolic Panel; Future - Insert and maintain peripheral IV; Standing - Saline lock IV; Standing - sodium chloride 0.9% infusion - chlorhexidine (Hibiclens) 4 % liquid - mupirocin (Bactroban) 2 % ointment 1 Application - ceFAZolin (Ancef) 3 g in dextrose 5% 50 mL IV Sherley Kohli LPN Vasovagal/neurally mediated syncope and near syncope by history. Reported abnormal tilt table test and unremarkable echo per outside special education math teacher note. Completed 3 out of 7 day monitor in 2023 which was negative. Cannot wear event monitor due to adhesive electrode skin tear issues. Unable to tolerate higher dose sodium. Will continue sodium and midodrine. Refills discussed. Prescribed waist high compression stockings. Continue increased fluid intake. Discussed again what oqmh-fvq-jqjdohi medications to avoid. To attempt to correlate arrhythmia with symptoms, will implant loop recorder. Preoperative cardiac evaluation performed. E consent obtained. Patient's mother reports that the patient's great uncle had abnormal genetic condition and the rest of the family still needs evaluation. We attempted to screen patient with echocardiogram in the past, but this was not approved by insurance. Greater than 50% of the visit for counseling. The patient, mother, and I discussed syncope, near syncope, tachycardia, previous event monitor, will be indications for medications and if refills needed, preoperative cardiac evaluation for loop recorder, shared decision making, Ransom decision tool, informed consent, when to go to the emergency room, treatment options, risk, benefits, and imponderables. All questions answered in detail. Patient and family very appreciative care. documented in this encounter [facility] Work Phone: 05-14-2024 Instructions Jocelyn Mena - 05/14/2024 2:40 PM EST Images from the original note were not included. Pre-Procedure Patient Information You have been scheduled for: Loop recorder implant At: [facility] With: Dr. Fabian Date of procedure: Mon05-29-24 REPORT TO [address] [place] [address] AREA 1. Please have transportation to and from the hospital. While you should plan for same-day discharge there is a possibility you will need to stay overnight. 2. You will receive a call from the hospital 24 hours before your procedure providing you with fasting instructions, procedure location detail, and time of arrival. If you have not received a call from the hospital by 6 pm the day before your scheduled procedure, please call [phone]. 3. Please bring a current list of medications with you to the hospital. 4. Medications to hold: None - Otherwise, you may continue your medications in the morning with sips of water. 5. Nothing to eat after midnight before the procedure. OK to take morning medications, with above exceptions, the day of the procedure with a small sip of water. 6. Please bring to our attention if you have any contrast, latex or metal allergies. 7. Please have your blood work as instructed completed at least a day before your procedure. 8. If you have any questions, please contact the office at [phone]. You will come to the office 7 days after the implant for an incision check appointment We will give 2 orders for compression stockings, try to get them at [facility]. documented in this encounter [facility] Work Phone: 01-15-2024 History of Presen t illness Narrative [...] an appetite, reports yesterday she ate some divehi fries and kept those down and had [...] tablet; Refill: 0 documented in this encounter [facility] 01-03-2024 History of Presen t illness Narrative [...] or grammatical errors documented in this encounter [facility] Work Phone: 12-22-2023 Hospital Discharg e instructions Patient Education 12/22/2023 21:14:33 Upper Respiratory Infection, Adult, Mtll-ym-Tscn Upper Respiratory Infection, Adult An upper respiratory [...] medicines to help relieve symptoms, such as: Iyle-bjz-yqrphvo cold medicines. Medicines to reduce coughing (cough [...] and other clear broths. General instructions Take kpms-jpg-caielit and prescription medicines only as told by [...] cannot use soap and water, use hand cup machine operator. Avoid touching your mouth, face, eyes, or [...] get better within 7 10 days. Take cwpo-hhr-lmnzvcy and prescription medicines only as told by your doctor. This information is not intended to replace advice given to you by your health care provider. Make sure you discuss any questions you have with your health care provider. Document Revised: 10/27/2021 Document Reviewed: 10/27/2021 [employer] Patient Education 2023 [place]. Follow Up Care 12/22/2023 18:03:52 With:Reese Hart Address: [address] [place] [phone] Business (1) When:12/25/2023 21:14:11 Comments:Call to schedule a follow-up appointment with your special education math teacher for further management of care of the tachycardia. Use the Zofran as needed for nausea. Return to the ED for for any new or worsening symptoms. With:MEIR DE GUZMAN Address: [address] [place] [phone]- Business (1) When:Within 3 Day(s) [facility] 12-22-2023 Note ED Patient Education Note [...] to help relieve symptoms, such as: ? Ansr-hzl-vipgtsd cold medicines. ? Medicines to reduce coughing [...] other clear broths. General instructions ? Take itqe-wmy-fdbjyrt and prescription medicines only as told by [...] cannot use soap and water, use hand cup machine operator. ? Avoid touching your mouth, face, eyes, [...] get better within 7?10 days. ? Take ejti-rig-hqiwaoz and prescription medicines only as told by your doctor. This information is not intended to replace advice given (more content not included)... [facility] 12-22-2023 Evaluation + Plan note Diagnostic Tests PendingGroup A Strep by PCR 12/22/23 [facility] 08-18-2023 History of Presen t illness [...] Prescribed waist high compression stockings. Discussed what xpbp-vba-nvtodpb medications to avoid. Patient's mother reports that [...] her mother that there was and outside special education math teacher note describing that the 2021 echocardiogram was [...] work, and management. documented in this encounter [facility] Work Phone: 08-18-2023 Instructions Claudia [...] FACC, FACP, FHRS documented in this encounter [facility] Work Phone: 05-05-2023 History of [...] We did review that some records through [employer] everywhere [place] were obtained. There are cardiology notes and [...] symptoms. If increased symptoms then would attempt [facility] monitor if patient is able to tolerate [...] her mother that there was and outside special education math teacher note describing that the 2021 echocardiogram was unremarkable. Greater than 50% of the visit for counseling regarding syncope, near syncope, tachycardia, evaluation, and previous cardiology notes. Consider implantable loop recorder in future. Patient family appreciative care. All questions answered. 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 Michaels for Consult and Syncope History Of Present Illness: Arabella Knott is a 18 y.o. female presenting with [facility] care. Accompanied by her mother. The patient has remote syncope and recurrent dizziness and near syncope. [facility] She is [...] care. All questions answered. [facility] Phone: [phone]) 577-920111-27-2023 Instructions* Patient Instructions* Vito Ramos LPN - 03/06/2023 11:40 AM EST Daniele office visit 2023 Acebutolol 200 mg BID Midodrine 2.5 mg TID 2 two week zio patches. Echo soon [facility] Work Phone: [phone]) 204-365909-01-2023 Evaluation note* Encounter Date Diagnosis Assessment Notes [...] pharmacy is unable to get Adderall XR Medium Other 06-05-2023 Evaluation note* Encounter Date Diagnosis Assessment Notes Treatment Notes Treatment Clinical Notes Sep, Dysautonomia (ICD-10 - G90.1) Pt agrees to stop beta carmelina and trial of midodrine. Will contact cardio in [place], per their preference. 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 Vitals are stable. Medium Other 03-16-2023 Evaluation note* Encounter Date Diagnosis Assessment Notes Treatment Notes Treatment Clinical Notes Jun, Acute non-recurrent pansinusitis (ICD-10 - J01.40) Advise she repeat home COVID test based on her symptoms. 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 Advised handwashing and other masking protocol. Medium Other 01-09-2023 Evaluation note* Encounter Date Diagnosis [...] verbalized understanding and agreement with treatment plan. Medium Other 09-20-2022 NotePROCEDURE: XR ANKLE RT MIN [...] Electronically authenticated by: SANDRA ROSSI Date: 2021-12-28 14:0309-20-2022 NotePROCEDURE: XR ANKLE RT MIN 3 VIEWS, [...] Electronically authenticated by: SANDRA ROSSI Date: 2021-12-28 14:0309-14-2022 NotePROCEDURE: XR ANKLE RT MIN 3 VIEWS COMPARISON: None. HISTORY: Arthralgia of the ankle and/or foot FINDINGS: BONES:No fracture, acute abnormality, or significant arthropathy. SOFT TISSUES:Negative. No visible soft tissue swelling. EFFUSION:None visible. OTHER: Negative. IMPRESSION: No acute abnormality Electronically authenticated by: TATE GUERRERO Date: 2021-12-22 07:0908-11-2022 Evaluation note* Encounter Date Diagnosis Assessment Notes Treatment Notes Treatment Clinical Notes Nov, Urticaria (ICD-10 - L50.9) Drink plenty fluids, get plenty of rest. Take the prednisone as prescribed until gone. Take Benadryl as needed for itching. Follow-up with your family physician if no improvement in 2 to 3 days. Nov, Other Contact dermati tis home care material was printed Medium Other 04-01-2010 History general Narrative - Reported* Type Description Date Medical History Gerd Medical History Hypertension Medical History TMJ Medical History Headaches Medical History Tachycardia Surgical History T&A 07/2009 Surgical History Tubes in ears 2013 [facility] Other Chimz complaint Narrative - ReportedKENDALL HEDY is being seen for SELF REFERRAL.-[facility] DO Work Phone: Chiot complaint Narrative - ReportedKENDALL HEDY is being seen for SELF REFERRAL.-[facility] 250 DO Work Phone: Evaluation noteNo InformationNort [employer] Other Evaluation noteNo assessment information available [facility] Work Phone: Evaluation note* Diagnosis Vaso vagal episode- Primary Syncope and collapse Vasovagal syncope Syncope and collapse Essential hypertension Unspecified essential hypertension Palpitations Shortness of breath Orthostatic hypotension Mixed bipolar affective disorder, moderate (CMS/HCC) Bipolar I disorder, most recent episode (or current) mixed, moderate documented in this encounter [facility] Work Phone: Evaluation note* Diagnosis Orthostatic hypotension- Primary Palpitations Shortness of breath Vasovagal syncope Syncope and collapse Encounter for medication review and counseling Encounter to discuss treatment options documented in this encounter [facility] Work Phone: Evaluation note* Diagnosis Orthostatic hypotension- Primary Vasovagal syncope Syncope and collapse Shortness of breath Palpitations Encounter for medication review and counseling Obesity, morbid, BMI 40.0-49.9 (Multi) Never smoked cigarettes Near syncope documented in this encounter [facility] Work Phone: Evaluation note* Diagnosis COVID-19- Primary Pharyngitis, unspecified etiology Nausea and vomiting, unspecified vomiting type [facility] Diagnosis Migraine with aura and without status migrainosus, not intractable documented in this encounter [facility] Work Phone: Evaluation note* Diagnosis Orthostatic hypotension- Primary Palpitations Vasovagal syncope Syncope and collapse Obesity, morbid, BMI 40.0-49.9 (Multi) Encounter for medication review and counseling Encounter to discuss treatment options Encounter to discuss test results Other specified counseling Never smoked cigarettes Near syncope Vasovagal syncope Syncope and collapse Near syncope documented in this encounter [facility] Work Phone: Hismkju general Narrative - Reported* Type Description Date [...] in ears 2012 Hospitalization History SEE SURGICAL Medium Other Hisupvx general Narrative - Reported* Type Description Date [...] in ears 2012 Hospitalization History SEE SURGICAL Medium Other History of Present illness Narrative* 17-year-old [...] if interval problems arise. * Thank you -[facility] DO Work Phone: Hospital course Narrative No data available for this section [facility] Progress note No data available for this section [facility] Family History No Family History Records FoundUnknown [...] Relatives(V18.3, Z83.2) Status:Active Summary Purpose Advance Directives No Advanced Directives Records Found Advance Directive Response Recorded Date/ Time Advance Directives No August 16, 2022 7:37am Chief Complaint and Reason for Visit Chief Complaint R42 R00.2 R06.02 Reason for Referral Specialty Diagnoses / Procedures Referred By Ancelmo t Referred To Contact Diagnoses Migraine with aura and without status migrainosus, not intractable Cathleen Woods, JET [employer] MECHANIC-LITIGATION PARALEGAL [address] [facility], [address] [place] [address] Referral ID Status Reason Start Date Expiration Date V isits Requested Visits Authorized [id number] Pending Review 1 1 Specialty Diagnoses / Procedures Referred By Contac t Referred To Contact Diagnoses Shortness of breath Vasovagal syncope Procedures ECG 12 Lead Audra Fabian MD [address] [address] Referral ID Status Reason Start Date Expiration Date V isits Requested Visits Authorized [id number] Authorized 05/05/2023 05/04/2024 1 1 Specialty Diagnoses / Procedures Referred By Contac t Referred To Contact Diagnoses Palpitations Procedures ECG 12 lead (Clinic Performed) Audra Fabian MD [address] [address] Referral ID Status Reason Start Date Expiration Date V isits Requested Visits Authorized [id number] Authorized 05/05/2023 05/04/2024 1 1 Specialty Diagnoses / Procedures Referred By Contac t Referred To Contact Diagnoses Vaso vagal episode Procedures ECG 12 lead (Clinic Performed) Audra Fabian MD [address] [address] Referral ID Status Reason Start Date Expiration Date V isits Requested Visits Authorized [id number] Pending Review 03/06/2023 03/05/2024 1 1 Specialty Diagnoses / Procedures Referred By Contac t Referred To Contact Cardiology Diagnoses Vasovagal syncope Shortness of breath Procedures Transthoracic Echo (TTE) Complete NM ECHO TRANSTHORC R-T 2D W/WO M-MODE REC F-UP/LMTD NM DOP ECHOCARD COLOR FLOW VELOCITY MAPPING NM DOP ECHOCARD PULSE WAVE W/SPECTRAL F-UP/LMTD STD Audra Fabian MD [address] [address] Referral ID Status Reason Start Date Expiration Date Visits Requested Visits Authorized [id number] Pending Review Perform Procedure 03/05/2024 1 1 Specialty Diagnoses / Procedures Referred By Contac t Referred To Contact Cardiology Diagnoses Vasovagal syncope Procedures Holter Or Event Semiconductor Package Symbol Stamper Audra Fabian MD [address] [facility], [address] [address] Referral ID Status Reason Start Date Expiration Date V isits Requested Visits Authorized [id number] Pending Review 03/06/2023 03/05/2024 1 1 Referral ID Status Reason Start Date Expiration Date V isits Requested Visits Authorized [id number] Pending Review 03/06/2023 03/05/2024 1 1 Additional Source Comments REASON FOR VISIT (unrecogniz ed section and content) Reason Comments Consult Syncope Specialty Diagnoses / Procedures Referred By Contac t Referred To Contact Diagnoses Vaso vagal episode Procedures ECG 12 lead (Clinic Performed) Audra Fabian MD [address] [address] Referral ID Status Reason Start Date Expiration Date V isits Requested Visits Authorized [id number] Pending Review 03/06/2023 03/05/2024 1 1 Reason Comments Follow-up Zio patch- unable to wear due to allergic reaction Specialty Diagnoses / Procedures Referred By Contac t Referred To Contact Cardiology Diagnoses Vasovagal syncope Procedures Holter or Event Semiconductor Package Symbol Stamper Audra Fabian MD [address] [address] Referral ID Status Reason Start Date Expiration Date V isits Requested Visits Authorized [id number] Authorized 04/27/2023 04/26/2024 1 1 Reason Comments Follow-up 6 months Specialty Diagnoses / Procedures Referred By Contac t Referred To Contact Diagnoses Palpitations Procedures ECG 12 Lead Audra Fabian MD [address] [facility], [address] [address] Referral ID Status Reason Start Date Expiration Date V isits Requested Visits Authorized [id number] Authorized 08/18/2023 08/17/2024 1 1 Reason Comments Follow-up Pt is here today fol lowing up after 6 months INFORMATION SOURCE (unrecogn ized section and content) DATE CREATED AUTHOR 06/28/2022 [employer] DATE CREATED AUTHOR AUTHOR'S ORGANIZ ATION 07/15/2022 [employer] DATE CREATED AUTHOR AUTHOR'S ORGANIZ ATION 08/21/2022 [facility] DATE CREATED AUTHOR AUTHOR'S ORGANIZ ATION 12/17/2022 [facility] DATE CREATED AUTHOR AUTHOR'S ORGANIZ ATION 12/25/[address] [facility] [facility] DATE CREATED AUTHOR AUTHOR'S ORGANIZ ATION 12/29/[address] [place] [facility] DATE CREATED AUTHOR AUTHOR'S ORGANIZ ATION 01/05/2024 [facility] DATE CREATED AUTHOR AUTHOR'S ORGANIZ ATION 01/17/2024 [facility] dical Specialists [facility] DATE CREATED AUTHOR AUTHOR'S ORGANIZ ATION 05/16/2024 [facility] DATE CREATED AUTHOR AUTHOR'S ORGANIZ ATION 05/20/2024 [facility] Care Teams (unrecognized sec tion and content) Team Status: Active Member Role Status Dates Meir De Guzman MD Primary Care Provider Active Team Status: Inactive Member Role Status Dates Meir De Guzman MD Primary Care Provider Active An Michaels MD Attending Provider Active Kylie Marc MD Referring Provider Active [employer] Plate Setter Relationship Specialty Start Date End Date Meir De Guzman MD PCP - General 02/08/16 [employer] Plate Setter Relationship Specialty Start Date End Date Meir De Guzman MD [address] [place] [address] PCP - General 02/08/16 Audra Fabian MD [address] [facility], [address] [place], [place] [id number] Consulting Physician Electrophysiology 05/04/23 An Michaels MD [address] [facility], [address] [place], [place] [id number] Estate Planning Director Cardiology 05/05/23 [employer] Plate Setter Relationship Specialty Start Date End Date Meir De Guzman MD [address] [place] [address] PCP - General 02/08/16 Audra Fabian MD [address] [place] [address] Consulting Physician Electrophysiology 05/04/23 An Michaels MD [address] [address], [address] [place] [address] Estate Planning Director Cardiology 05/05/23 Flexographic Press Plate Setter Relationship Specialty Start Date End Date Meir De Guzman MD [address] [place] [phone] PCP - General Family Medicine 02/28/23 Flexographic Press Plate Setter Relationship Specialty Start Date End Date Meir De Guzman MD [address] [place] [address] PCP - General 02/08/16 Audra Fabian MD [address] [place] [address] Consulting Physician Electrophysiology 05/04/23 An Michaels MD [address] [facility] [address], [address] [place] [address] Estate Planning Director Cardiology 05/05/23 Flexographic Press Plate Setter Relationship Specialty Start Date End Date Meir De Guzman MD [address] [place] [address] PCP - General 02/08/16 An Michaels MD [address] [place] [address] Estate Planning Director Cardiology 05/05/23 Audra Fabian MD [address] [facility], [place] [address] Estate Planning Director Electrophysiology 05/03/24 Goals (unrecognized section and content) Goals may [...] BE BASED ON THE PRIMARY CLINICAL RECORDS. [facility]. provides no warranty or guarantee of the accuracy or completeness of information in this document.
== END 2024-06-13 15:43 | disposition home or self-care (01) ==
LOC: MRI 15:43
PROVIDERS: PCP Family Medicine; Visit Provider Family Medicine
DX: M54.50 Low back pain, unspecified (principal); M79.605 Pain in left leg; M51.369 Other intervertebral disc degeneration, lumbar region without mention of lumbar back pain or lower extremity pain
CPT/HCPCS: 72148

== ENCOUNTER 2024-08-14 17:05 | Outpatient (RCR) | payer OTHER, SELFPAY | END 2024-10-23 06:50 | disposition home or self-care (01) | LOC: PT 17:05 | PROVIDERS: PCP Family Medicine | DX: M54.16 Radiculopathy, lumbar region (principal); M48.062 Spinal stenosis, lumbar region with neurogenic claudication; M51.26 Other intervertebral disc displacement, lumbar region | CPT/HCPCS: 97110; 97162 ==

== ENCOUNTER 2024-10-16 16:00 | Outpatient (OUT) | payer OTHER, SELFPAY ==
--- OUTSIDE RECORDS SUMMARY | 2023-07-18 08:45 | XMS_ITS ---
Author Organization [facility] Address [address] [place], [place] [id number] Care Team Providers Care Food Technician Name Role Phone Donald Camargo Primary Care Provider REASON FOR VISIT 3 month f/u Social History Sex Assigned At : Social History Observation Description Sex Assigned At Female Encounters Encounter Location Date Provider Diagnosis [address] [id number] 07/18/2023 Donald Camargo Plan Of Treatment No Information Progress Notes * HEDYLeandro ShinobedDOB: 3 (19 yo F)Acc No.[id number]:07/18/2023 Patient: Lew DUTTON Provider: YANIRA Martin :2005 A ge:18 Y S ex:Female Date:07/18/2023 Address:[address] [place], [place] [id number] Subjective: * Chief Complaints: * 1 . 3 month f/u. * Medical History: Objective: * Vitals: Assessment: Plan: * Treatment: Care Plan: * Problems: * Billing Information: * Visit Code: * Procedure Codes: Care Plan Details* * Electronic signature of YANIRA Amaya on 10/16/2024 at 04:03 PM EDT Sign off status: Pending * Provider: YANIRA Martin Date: 0 07/18/2023 Generated for Kernoy centeno/Mery/eTransmitting on: 0 10/16/2024 04:03 PM EDT
--- OUTSIDE RECORDS SUMMARY | 2024-10-10 09:55 | XMS_ITS | Encounter Summary ---
Author Organization [facility] Address [address] [place] [address] Phone Care Team Providers Care Lock And Dam Operator Name Role Phone Allyssa Avila MD Primary Care Provider [phone] An Michaels MD Unavailable Audra Kurtz MD Unavailable Reason for Referral * Imaging (Routine) - Pending Review Specialty Diagnoses / Procedures Referred By Contac t Referred To Contact Cardiology Diagnoses Presence of other cardiac implants and grafts Syncope and collapse Procedures Cardiac Device Check - Remote Audra Kurtz MD [facility] [address] [address] Phone: tel: fax: Referral ID Status Reason Start Date Expiration Date Visits Requested Visits Authorized [id number] Pending Review Perform Procedure 06/27/2024 06/27/2025 1 1 Reason for Visit * Imaging (Routine) - Pending Review Specialty Diagnoses / Procedures Referred By Contac t Referred To Contact Cardiology Diagnoses Presence of other cardiac implants and grafts Syncope and collapse Procedures Cardiac Device Check - Remote Audra Kurtz MD [address] [address] Phone: tel: fax: Referral ID Status Reason Start Date Expiration Date Visits Requested Visits Authorized [id number] Pending Review Perform Procedure 06/27/2024 06/27/2025 1 1 Encounter Details Date Type Department Care Team (Latest Contact Info) Description 10/10/2024 9:55 AM EDT - 10/10/2024 11:59 PM EDT Hospital Encounter [facility] [address] [place] [facility] [place] [address] Presence of other cardiac implants and grafts; Syncope and collapse Discharge Disposition: Home Social History Tobacco Use Types Packs/Day Years Used Date Smoking Tobacco: Never Smokeless Tobacco: Never Alcohol Use Standard Drinks/Week Comments Never 0 (1 standard drink = 0.6 oz pur e alcohol) PHQ-2 Answer Date Recorded Patient Health Questionnaire-2 Score 0 11/02/2023 Comments No Sex and Gender Information Value Date Recorded Sex Assigned at Not on file Legal Sex Female 1:55 PM EST Gender Identity Not on file Sexual Orientation Not on file documented as of this encounter Medications at Time of Discharge acebutolol (Sectral) 200 mg capsuleIndications :Essential hypertension TAKE ONE CAPSULE BY MOUTH TWICE A DAY 180 capsule 3 03/14/2024 amitriptyline (Elavil) 25 mg tabletIndications: Migraine with aura and without status migrainosus, not intractable Take 1 tablet (25 mg) by mouth once daily at bedtime. 30 tablet 5 01/03/2024 midodrine (Proamatine) 5 mg tabletIndications: Orthostatic hypotension Take 1 tablet (5 mg) by mouth 3 times a day. 270 tablet 3 10/23/2023 sodium chloride 1,000 mg tabletIndications: Orthostatic hypotension Take 0.5 tablets (0.5 g) by mouth 3 (three) times a week. 06/28/2024 documented as of this encounter Plan of Treatment Upcoming Encounters Date Type Department Care Team (Late st Contact Info) Description 10/29/2024 1:00 PM EDT Appointment [facility] [address] [place] [facility] [place] [address] 10/29/2024 1:40 PM EDT Office Visit [facility] [address] [phone] Audra Kurtz MD [address] [facility], [address] [place] [address] documented as of this encounter Procedures Procedure Name Priority Date/Time Associated Diagnosis Comments CARDIAC DEVICE CHECK - REMOTE - LOOP RECORDER (ILR) Routine 10/10/2024 12:39 PM EDT Presence of other cardiac implants and grafts Syncope and collapse documented in this encounter Results * CARDIAC DEVICE CHECK - REMOTE - LOOP RECORDER (ILR) (10/10/2024 12:39 PM EDT) Anatomical Region Laterality Modality Monitor/Device 10/10/2024 6:00 AM EDT us Audra Kurtz MD CV IMPLANTABLE CARDIAC DEVICE GA OCEDURES Final Result documented in this encounter Visit Diagnoses Diagnosis Presence of other cardiac implants and grafts Syncope and collapse documented in this encounter Additional Health Concerns Assessment Noted Time A fall risk assessment has been complete d for the patient 11/02/2023 1:06 PM EDT documented as of this encounter Care Teams Lock And Dam Operator Relationship Specialty Start Date End Date Allyssa Avila MD [address] [place] [address] PCP - General 02/08/16 An Michaels MD 703 [facility] 2, [address] [place] [address] System Developer Associate Manager Cardiology 05/05/23 Audra Kurtz MD [address] [facility], [address] [place] [address] System Developer Associate Manager Electrophysiology 05/03/24 documented as of this encounter
--- NOTE | 2024-10-16 | XR_ITS ---
[facility] [place] [id number] Patient Name: ARABELLA KNOTT MRN: [id number] date: 2005 Sex: F Assigned Patient Location: [facility] Current Patient Location: [facility] Accession/Order Number: [id number] Exam Date: 10/16/2024 16:31 Report Date: 10/16/2024 16:33 At the request of: MEIR DE GUZMAN MD Procedure: XR lumbar spine 2-3V 2 views Lumbar Spine HISTORY: Fell. Back pain. COMPARISON: MRI lumbar spine 06/13/2024 POSTSURGICAL CHANGES: None BONY ALIGNMENT: Adequate HYPERMOBILITY:No bending imaging. LISTHESIS:None FRACTURE: None DEGENERATIVE CHANGES: Chronic L4 superior endplate change. L5-S1 and L4-5 disc space narrowing. Mild L3-4 disc space narrowing. Lower lumbar facet degeneration. SOFT TISSUES: Unremarkable BONY MINERALIZATION:Adequate XR/XR lumbar spine 2-3V IMPRESSION: No acute displaced fracture. Similar Lower lumbar degeneration. Impression dictated by: Xavier Fuchs M.D. 10/16/2024 4:33 PM Dictation Location: [place] [address] Electronically authenticated by: [id number] Y Date: 10/16/2024 16:33
--- OUTSIDE RECORDS SUMMARY | 2024-10-16 16:03 | XMS_ITS | Encounter Summary ---
Author Organization [facility] Address [address] [place] [address] Phone Care Team Providers Care Rubber Molder Name Role Phone Allyssa Avila MD Primary Care Provider [phone] Audra Kurtz MD Unavailable An Michaels MD Unavailable Audra Kurtz MD Unavailable Encounter Details Date Type Department Care Team (Late st Contact Info) Description 06/20/2022 Orders Only [facility] [address] [place] [address] Conversion, Onbase Social History Tobacco Use Types Packs/Day Years Used Date Smoking Tobacco: Never Assessed Comments Unknown Sex and Gender Information Value Date Recorded Sex Assigned at Not on file Legal Sex Female 1:55 PM EST Gender Identity Not on file Sexual Orientation Not on file documented as of this encounter Plan of Treatment Upcoming Encounters Date Type Department Care Team (Late st Contact Info) Description 10/29/2024 1:00 PM EDT Appointment [facility] [address] [place] [phone] 10/29/2024 1:40 PM EDT Office Visit [facility] [address] [facility] [address] [place] [phone] Audra Kurtz MD [address] [facility] [address], [address] [place], [place] [phone] Scheduled Orders Name Type Priority Associated Diagnoses Orde r Schedule OUTSIDE LAB SCAN Lab Ordered: 06/20/2022 documented as of this encounter Visit Diagnoses Not on filedocumented in this encounter Care Teams Rubber Molder Relationship Specialty Start Date End Date Allyssa Avila MD [address] [place] [address] PCP - General 02/08/16 Audra Kurtz MD [address] [place] [address] Consulting Physician Electrophysiology 05/04/23 5 An Michaels MD [address]03 [facility] 2, [address] [place] [address] Precast Concrete Ironworker Cardiology 05/05/23 Audra Kurtz MD [address] [facility], [address] [place] [address] Precast Concrete Ironworker Electrophysiology 05/03/24 documented as of this encounter
--- OUTSIDE RECORDS SUMMARY | 2024-10-16 16:04 | XMS_ITS | Clinical Summary ---
Author Organization [facility] Address [address] [place] [address] Care Team Providers Care Director Hris Name Role Phone Rosi Parks [phone] Allergies Active Allergy Reactions Criticality Noted Date Comments Adhesive Tape-Silicones Rash 09/23/2024 Cariprazine Anaphylaxis,Other: S ee Comments High 03/06/2023 Medications midodrine (PROAMITINE) 5 mg tablet Take 5 mg by mouth three times a day. Active acebutolol (SECTRAL) 200 mg capsule Take 200 mg by mouth two times a day. Active cetirizine (ZYRTEC) 10 mg tablet Take 1 tablet by mouth two times a day. 60 tablet 5 025 Active famotidine (PEPCID) 40 mg tablet Take 1 tablet by mouth two times a day. 60 tablet 5 025 Active EPINEPHrine (EPIPEN) 0.3 mg/0.3 mL auto-injector Indications:T hroat swelling Inject 0.3 mL intramuscularly as directed. Dispense EPIPEN: Brand or Generic Ok generic Adrenaclick [place] 2 each 1 025 Active EPINEPHrine (EPIPEN) 0.3 mg/0.3 mL auto-injector Indications:T hroat swelling Inject 0.3 mL intramuscularly as directed. 2 each 1 025 2024 Discontinued Active Problems No known active problems Encounters Date Type Department Care Team Description 09/30/2024 Refill Allergy [address] [place], [place] [phone] Salena Bolton MD Refill Request 09/26/2024 Results Follow-Up Allergy [address] [place] [address] Salena Bolton MD 09/23/2024 10:30 AM EDT Office Visit Allergy [address] [place] [address] Salena Bolton MD Adverse food reaction, initial encounter (Primary Dx); Throat swelling; Rash and nonspecific skin eruption 09/21/2024 Travel 09/19/2024 Patient [facility] -[address] [place] [address] Oksana Owens RPh At your next appointment, choose [facility]. 09/16/2024 [place] [address] Provider, Ccf Important information about your scheduled Allergy and Immunology appointment 08/09/2024 Patient [facility] [place] [address] Provider, Ccf Important information about your scheduled Allergy and Immunology appointment from Last 3 Months Social History Tobacco Use Types Packs/Day Years Used Date Smoking Tobacco: Never Smokeless Tobacco: Never Tobacco Cessation:Counseling Given: Not Answered Area Deprivation Index Answer Date Giuseppe rded National Score (1-100), lower number is lower ri sk 64 09/23/2024 State Score (1-10), lower number is lower risk 4 09/23/2024 Data from: https://www.neighborhoodatlas.medicine.[facility].edu/. Last address used for calculation [address] [facility] [address] 09/23/2024 Comments Unknown Sex and Gender Information Value Date Recorded Sex Assigned at Not on file Legal Sex Female 10:52 AM EDT Gender Identity Not on file Sexual Orientation Not on file Plan of Treatment Upcoming Encounters Date Type Department Care Team (Late st Contact Info) Description 11/25/2024 11:30 AM EDT [facility] Allergy [address] [place] [address] Salena Bolton MD [address] [place], [place] [phone] 2 month f/u 12/26/2024 1:30 PM EDT Office Visit Dermatology [address] [place] [phone] [place] [address] [place] [address] Rash and nonspecific skin eruption [R21] Health Maintenance Due Date Last Done Comments Peds To Adult Transition Initial Discussion 2015 Peds To Adult Transition Annual Assessment 2017 HPV Vaccine (1 - 3-dose series) 2018 Meningococcal B Vaccine (1 of 2 - Standard) 2019 Anxiety Screening 2021 Chlamydia Screening (18-24) 2021 Depression Screening 2021 GC (Gonorrhea) Screening (18-24) 2021 HIV Screening 2021 Hepatitis C Screening 2021 DTaP,Tdap,Td Vaccine (1 - Tdap) 2022 Hepatitis B Vaccine (1 of 3 - 19+ 3-dose series) 01/27 Covid-19 Vaccine ( - season) 2023 Cervical Cancer Screening 01/28/2024 Influenza Vaccine (#1) 2024 Procedures Procedure Name Priority Date/Time Associated Diagnosis Comments EXTERNAL CARDIOLOGY 09/30/2024 3 :25 PM EDT T4 FREE/FREE THYROX Routine 09/23/2024 1 2:21 PM EDT Throat swelling TSH BLD Routine 09/23/2024 12:21 PM EDT Throat swelling ALLERGEN, ALPHA-GAL COMPONENT IGE Routine 09/23/2024 12:21 PM EDT Throat swelling IGE BLD Routine 09/23/2024 12:21 PM EDT Throat swelling TRYPTASE BLOOD Routine 09/23/2024 12:21 PM EDT Throat swelling ALLERGEN SKIN TEST-FOOD Routine 09/23/2024 Adverse food reaction, initial encounter from Last 3 Months Results * EXTERNAL CARDIOLOGY (09/30/2024 3:25 PM EDT) us External Provider PA-C CARDIOLOGY Final Res ult * ALLERGEN, ALPHA-GAL COMPONENT IGE (09/23/2024 12:21 PM EDT) Pathologist [facility] Alpha-GAL IgE <0.10 <0.10 kU/L 09/24/2024 1:26 PM EDT [facility] Blood BLOOD SPECIMEN / Unknown Venipuncture / Unknown 09/23/2024 12:21 PM EDT 09/23/2024 12:22 PM EDT Narrative [facility] - 09/24/2024 1:26 PM EDT kU/l Class Level of S-IgE Antibody <0.10 0 Below Detection 0.10 - 0.34 0/1 Clinical relevance undetermined, for specialist use only 0.35 - 0.69 1 Low 0.70 - 3.49 2 Moderate 3.50 - 17.49 3 High 17.50 - 49.99 4 Very High 50.00 - 100.00 5 Very High >100.00 6 Very High Salena Bolton MD LABORATORY Final Result [facility] [address] [place] [address], * TRYPTASE BLOOD (09/23/2024 12:21 PM EDT) [facility] Tryptase 5.3 <8.4 ug/L 09/24/2024 1:2 5 PM EDT [facility] Blood BLOOD SPECIMEN / Unknown Venipuncture / Unknown 09/23/2024 12:21 PM EDT 09/23/2024 12:22 PM EDT Salena Bolton MD LABORATORY Final Result [facility] [address] [place] [address], [place] * THYROID STIMULATING HORMONE (09/23/2024 12:21 PM EDT) [facility] TSH 2.600 0.270 - 4.200 mIU/L 09/23/2024 10:00 PM EDT [facility] Comment: If the patient is , TSH reference range varies by gestational period: First Trimester (weeks 9-12): 0.180-2.990 mIU/L Second Trimester: 0.110-3.980 mIU/L Third Trimester: 0.480-4.710 mIU/L Ponce Orozco et al. A Practical Approach for the Verifications and Determination of Site- and Trimester-Specific Reference Intervals for Thyroid Function tests in . Thyroid, 2019:29:3:412-420. Miguel A Hernandez, et al. 2017 Guidelines of the [place] Thyroid Association for the Diagnosis and Management of Thyroid Disease during and the . Thyroid, 2017:27:3:315-389. Blood BLOOD SPECIMEN / Unknown Venipuncture / Unknown 09/23/2024 12:21 PM EDT 09/23/2024 12:22 PM EDT us Salena Bolton MD LABORATORY Final Result Performing Organization Address City/[facility]/ZIP Co de Phone Number [facility] [address] [place] [address], [place] * T4 FREE/FREE THYROXINE (09/23/2024 12:21 PM EDT) Free T4 1.1 0.9 - 1.7 ng/dL 09/23/2024 10:00 PM EDT [facility] Blood BLOOD SPECIMEN / Unknown Venipuncture / Unknown 09/23/2024 12:21 PM EDT 09/23/2024 12:22 PM EDT us Salena Bolton MD LABORATORY Final Result [facility] [address] [place] [address], [place] * IMMUNOGLOBULIN E (09/23/2024 12:21 PM EDT) IgE 4.4 <114.0 kU/l 09/24/2024 1:25 PM EDT [facility] Blood BLOOD SPECIMEN / Unknown Venipuncture / Unknown 09/23/2024 12:21 PM EDT 09/23/2024 12:22 PM EDT Salena Bolton MD LABORATORY Final Result [facility] [address] [facility] [address] [place] [address], * ALLERGEN SKIN TEST-FOOD (09/23/2024) Narrative Lois Weathers RN - 09/23/2024 FOOD ALLERGEN PERCUTANEOUS SKIN TESTING Mean Wheal & Flare Diameter ( mm) Patient has been identified by name and date of : Yes . Skin test applied by : Lois Weathers RN Interpreted By: Salena Bolton M.D. * Clinical significant reactions are regarded as a wheal diameter greater than or equal to 3 mm with a flare diameter greater or equal to 6mm. ALLERGENS: Time applied: 1137 Time read: 1152 Control Wheal Flare Negative: 50% GLYCERIN/50% cocas; P: W = 0 mm F = 0 mm HISTAMINE, POSITIVE CONTROL (HISTAMINE BASE 6MG/ML) P: W = 5 mm F = 15 mm ALLERGENS: ANIMAL Time applied: 1137 Time read: 1152 1. Beef 1:20 P: W = 0 mm F = 0 mm 2. Kay 1:20 P: W = 0 mm F = 0 mm 3. Pork 1:20 P: W = 0 mm F = 0 mm Hydrocortisone 2.5% cream applied to positive reactions. Salena Bolton MD BACK OFFICE PROCEDURES Final R esult from Last [address] [place] [address] [employer] Care Teams Director Hris Relationship Specialty Start Date End Date Rosi Parks [address] [place] [address] Neurosurgery 08/08/24
--- OUTSIDE RECORDS SUMMARY | 2024-10-16 16:04 | XMS_ITS | Clinical Summary ---
Author Organization [facility] Address [address] [place] [address] Care Team Providers Care Pants Cutter Name Role Phone Allyssa Avila MD Primary Care Provider [phone] Allergies No known active allergies Medications amLODIPine (Norvasc) 5 mg tablet 1 (one) time each day at the same time. Active amphetamine-dext roamphetamine XR (Adderall XR) 15 mg 24 hr capsule Take 15 mg by mouth in the morning. 02/21/2022 Active metoprolol succinate XL (Toprol-XL) 50 mg 24 hr tablet 1 (one) time each day at the same time. Active meloxicam (Mobic) 15 mg tablet Take 15 mg by mouth if needed each day. 03/24/2022 Active Active Problems Problem Noted Date Diagnosed Date Postural dizziness with presyncope 04/17/2022 Assessment & Plan (04/17/2022 2:54 PM EST): -will order tilt tablet o further assess -will have her follow up with Dr. Rosales within 3 months with results -if we do suspect POTS or dysautonomia we may refer her to Dr. Zhou at [facility] for further evaluation Class 3 severe obesity due t o excess calories with body mass index (BMI) of 40.0 to 44.9 in adult 04/12/2022 Anxiety 04/12/2022 Bipolar disorder 04/12/2022 Mixed bipolar affective disorder, moderate 04/12 Migraine 08/29/2017 TIA (transient ischemic attack) 08/29/2017 Family History Medical History Relation Name Comments Heart failure Maternal Grandmother Arrhythmia Mother Hypertension Mother Relation Name Status Comments Maternal Grandmother Mother Social History Tobacco Use Types Packs/Day Years Used Date Smoking Tobacco: Never Smokeless Tobacco: Never Tobacco Cessation:Counseling Given: Not Answered Alcohol Use Standard Drinks/Week Comments Never 0 (1 standard drink = 0.6 oz pur e alcohol) [place] Safety & Environment Answer Date Rec orded Fear of Current or Ex-Partner Not on file Emotionally Abused Not on file 06/01/2023 Physically Abused Not on file 06/01/2023 Sexually Abused Not on file 06/01/2023 Physically or Sexually Abused Not on file Comments Unknown Sex and Gender Information Value Date Recorded Sex Assigned at Not on file Legal Sex Female 12:35 AM EDT Gender Identity Not on file Sexual Orientation Not on file Last Filed Vital Signs Vital Sign Reading Time Taken Comments Blood Pressure 137/98 04/12/2022 2:11 PM EST Pulse 85 04/12/2022 2:11 PM EST Temperature - - Respiratory Rate - - Oxygen Saturation 98% 04/12/2022 2:02 PM EST Inhaled Oxygen Concentration - - Weight 122 kg (268 lb) 04/12/2022 2:02 PM EST Height 165.1 cm (5' 5 ) 04/12/2022 2:02 PM EST Body Mass Index 44.6 04/12/2022 2:02 PM EST Plan of Treatment Health Maintenance Due Date Last Done Comments DTaP/Tdap/Td Vaccines (1 - Tdap) 2010 Depression Screening 2015 Varicella Vaccines (1 of 2 - 13+ 2-dose series) 01/28/2016 HPV Vaccines (1 - 3-dose series) 2018 Meningococcal B Vaccine (1 o f 2 - Standard) 2019 COVID-19 Vaccine (1 - 2023-2 5 season) 2023 Pap Smear 01/28/2024 Influenza Vaccine (#1) 2024 Zoster Vaccines (1 of 2) 2053 HIB Vaccines Aged Out No longer eligi ble based on patient's age to complete this topic IPV Vaccines Aged Out No longer eligi ble based on patient's age to complete this topic Meningococcal Vaccine Aged Out No thom dong eligible based on patient's age to complete this topic Pneumococcal Vaccine: Pediat rics (0 to 5 Years) and At-Risk Patients (6 to 64 Years) Aged Out No longer eligible b ased on patient's age to complete this topic Rotavirus Vaccines Aged Out No longer eligible based on patient's age to complete this topic Insurance [employer] [place] [employer] Care Teams Pants Cutter Relationship Specialty Start Date End Date Allyssa Avila MD [address] [facility] [address] PCP - General 04/06/22
--- OUTSIDE RECORDS SUMMARY | 2024-10-16 16:04 | XMS_ITS | Clinical Summary ---
Author Organization [facility] Address [address] [place] [address] Phone Care Team Providers Care Community Development Coordinator Name Role Phone Allyssa Avila MD Primary Care Provider [phone] An Michaels MD Unavailable Audra Kurtz MD Unavailable Allergies Active Allergy Reactions Criticality Noted Date Comments Cariprazine Other 03/06/2023 Medications midodrine (Proamatine) 5 mg tabletIndications :Orthostatic hypotension Take 1 tablet (5 mg) by mouth 3 times a day. 270 tablet 3 4 10/18/19 25 Active amitriptyline (Elavil) 25 mg tabletIndications :Migraine with aura and without status migrainosus, not intractable Take 1 tablet (25 mg) by mouth once daily at bedtime. 30 tablet 5 4 Active acebutolol (Sectral) 200 mg capsuleIndication s:Essential hypertension TAKE ONE CAPSULE BY MOUTH TWICE A DAY 180 capsule 3 4 Active sodium chloride 1,000 mg tabletIndications :Orthostatic hypotension Take 0.5 tablets (0.5 g) by mouth 3 (three) times a week. 5 Active Active Problems Problem Noted Date Diagnosed Date Encounter to discuss test results 05/14/2024 Near syncope 05/14/2024 Joint pain 11/02/2023 Hypermobile joints 11/02/2023 Migraine with aura and witho ut status migrainosus, not intractable 11/02/2023 Chronic daily headache 11/02/2023 Staring episodes 11/02/2023 Orthostatic hypotension 08/18/2023 Obesity, morbid, BMI 40.0-49.9 (Multi) 4 Never smoked cigarettes 08/18/2023 Attention deficit hyperactiv ity disorder (ADHD), predominantly inattentive type 05/05/2023 Vasovagal syncope 05/05/2023 Encounter for medication review and counseling 0 05/05/2023 Encounter to discuss treatment options Essential hypertension 03/06/2023 Palpitations 03/06/2023 Shortness of breath 03/06/2023 Mixed bipolar affective disorder, moderate (Mult i) 03/06/2023 Anxiety 04/12/2022 TIA (transient ischemic attack) 08/29/2017 Resolved Problems Problem Noted Date Diagnosed Date Resolved Date Vaso vagal episode 03/06/2023 3 Encounters Date Type Department Care Team Description 10/10/2024 9:55 AM EDT - 10/10/2024 11:59 PM EDT Hospital Encounter [address] [address] Presence of other cardiac implants and grafts; Syncope and collapse Discharge Disposition: Home 09/06/2024 7:35 AM EDT - 09/06/2024 11:59 PM EDT Hospital Encounter [address] [address] Presence of other cardiac implants and grafts; Syncope and collapse Discharge Disposition: Home 08/16/2024 7:55 AM EDT - 08/16/2024 11:59 PM EDT Hospital Encounter [address] [address] Presence of other cardiac implants and grafts; Syncope and collapse Discharge Disposition: Home 08/15/2024 [id number] [facility] [address] [place] [phone] Cathleen Palomino, SUPERVISOR STAGE CARPENTRY-DIE SINKER APPRENTICE Migraine with aura and without status migrainosus, not intractable 08/02/2024 7:40 AM EDT - 08/02/2024 11:59 PM EDT Hospital Encounter [address] [place] [address] Presence of other cardiac implants and grafts; Syncope and collapse Discharge Disposition: Home from Last 3 Months Family History Medical History Relation Name Comments No Known Problems Father Blood clot Mother Hypertension Mother Nephrolithiasis Mother Relation Name Status Comments Father Mother Alive Social History Tobacco Use Types Packs/Day Years [...] Sign Reading Time Taken Comments Blood Pressure 145/84 06/27/2024 7:35 AM EDT Pulse 75 06/27/2024 7:35 AM EDT Temperature 37.2 C (99 F) 06/27/2024 7:35 AM EDT Respiratory Rate 18 06/27/2024 7:35 AM EDT Oxygen Saturation 99% 06/27/2024 7:50 AM EDT Inhaled Oxygen Concentration - - Weight 134 kg (296 lb 1.2 oz) 06/27/2024 7:35 AM EDT Height 165.1 cm (5' 5 ) 06/27/2024 7:35 AM EDT Body Mass Index 49.27 06/27/2024 7:35 AM EDT Plan of Treatment Upcoming Encounters Date Type Department Care Team (Late st Contact Info) Description 10/29/2024 1:00 PM EDT Appointment [facility] [address] [place] [address] 10/29/2024 1:40 PM EDT Office Visit [facility] [address] [facility] [address] [place] [phone] Audra Kurtz MD [address] [facility] Medical [facility] [address], [facility] [address] [place] [address] Health Maintenance Due Date Last Done Comments HIV Screening 2003 Lipid Panel 2003 Yearly Adult Physical 2003 MMR Vaccines (1 of 1 - Stand gay series) 01/28/2004 Hearing Screening (#1) 2007 DTaP/Tdap/Td Vaccines (1 - Tdap) 2010 Varicella Vaccines (1 of 2 - 13+ 2-dose series) 01/28/2016 HPV Vaccines (1 - 3-dose series) 2018 Meningococcal B Vaccine (1 o f 2 - Standard) 2019 Hepatitis C Screening 2021 Hepatitis B Vaccines (1 of 3 - 19+ 3-dose series) 2022 COVID-19 Vaccine (1 - 2023-2 5 season) 2023 Cervical Cancer Screening 01/28/2024 HPV/Cotest 01/28/2024 Pap Smear 01/28/2024 Influenza Vaccine (#1) 2024 Diabetes Screening 06/27/2025 06/27/2024 Zoster Vaccines (1 of 2) 2053 HIB Vaccines Aged Out No longer eligi ble based on patient's age to complete this topic Hepatitis A Vaccines Aged Out No long er eligible based on patient's age to complete this topic IPV Vaccines Aged Out No longer eligi ble based on patient's age to complete this topic Meningococcal Vaccine Aged Out No thom dong eligible based on patient's age to complete this topic Pneumococcal Vaccine: Pediat rics and At-Risk Adult Patients Aged Out No longer malik gible based on patient's age to complete this topic Rotavirus Vaccines Aged Out No longer eligible based on patient's age to complete this topic Medical Devices Implanted Type Area Mounter [employer] Device Identifier Shelf Expiration Date Model / Serial / Lot Assert-Iq, El+ [facility] - [id number] - [id number] Implanted:Qty : 1 on 06/27/2024 by Audra Kurtz MD at [facility] Other Cardiac Implant Left: Chest [employer] [id number] 12/23/2024 [id number] / [id number] / [id number] Procedures Procedure Name Priority Date/Time Associated Diagnosis Comments CARDIAC DEVICE CHECK - REMOTE - LOOP RECORDER (ILR) Routine 10/10/2024 12:39 PM EDT Presence of other cardiac implants and grafts Syncope and collapse CARDIAC DEVICE CHECK - REMOTE - LOOP RECORDER (ILR) Routine 09/06/2024 2:24 PM EDT Presence of other cardiac implants and grafts Syncope and collapse CARDIAC DEVICE CHECK - REMOTE Routine 08/16/2024 9:45 AM EDT Presence of other cardiac implants and grafts Syncope and collapse CARDIAC DEVICE CHECK - REMOTE - LOOP RECORDER (ILR) Routine 08/02/2024 12:58 PM EDT Presence of other cardiac implants and grafts Syncope and collapse BASIC METABOLIC PANEL STAT 06/27/2024 6:38 AM EDT from Last 3 Months or Most Recently Relevant to Health Maintenance Results * CARDIAC DEVICE CHECK - REMOTE - LOOP RECORDER (ILR) (10/10/2024 12:39 PM EDT) Only the most recent of4 resultswithin the time period is included. Anatomical Region Laterality Modality Monitor/Device 10/10/2024 6:00 AM EDT us Audra Kurtz MD CV IMPLANTABLE CARDIAC DEVICE GA OCEDURES Final Result * (ABNORMAL) Basic Metabolic Panel (06/27/2024 6:38 AM EDT) Glucose 113(H) 74 - 99 mg/dL LAB CHEMISTRY METHOD 06/27/2024 8:02 AM EDT [facility] Sodium 138 136 - 145 mmol/L LAB CHEMISTRY METHOD 06/27/2024 8:02 AM EDT [facility] Potassium 3.9 3.5 - 5.3 mmol/L LAB CHEMISTRY METHOD 06/27/2024 8:02 AM EDT [facility] Chloride 103 98 - 107 mmol/L LAB CHEMISTRY METHOD 06/27/2024 8:[facility] AM [facility] Bicarbonate 27 21 - 32 mmol/L LAB CHEMISTRY METHOD 06/27/2024 8:02 AM [facility] Anion Gap 12 10 - 20 mmol/L LAB CHEMISTRY METHOD 06/27/2024 8:02 AM EDT [facility] Urea Nitrogen 9 6 - 23 mg/dL LAB CHEMISTRY METHOD 06/27/2024 8:02 AM EDT [facility] Creatinine 0.75 0.50 - 1.05 mg/dL LAB CHEMISTRY METHOD 06/27/2024 8:02 AM EDT [facility] eGFR >90 >60 mL/min/1. 73m*2 LAB CHEMISTRY METHOD 06/27/2024 8:02 AM EDT [facility] Comment: Calculations of estimated GFR are performed using the 2020 CKD-EPI Study Refit equation without the race variable for the IDMS-Traceable creatinine methods. https://jasn.asnjournals.org/content/early//ASN.8497999897 Calcium 9.2 8.6 - 10.3 mg/dL LAB CHEMISTRY METHOD 06/27/2024 8:02 AM EDT [facility] Blood Venous blood specimen / Unknown Venipuncture / Unknown 06/27/2024 6:38 AM EDT 06/27/2024 7:36 AM EDT Enma Bearden SUPERVISOR STAGE CARPENTRY-DIE SINKER APPRENTICE LAB BLOOD ORDERABLES Fin al Result [facility] [address] [place] [address] from Last 3 Months or Most Recently Relevant to Health Maintenance Insurance [employer] Advance Directives For more information, please contact: [phone] (Available ) * Full Code (Latest Code Status on File) Date Activated Date Inactivated Comments 06/27/2024 6:36 AM Question Answer Comments Plan of Care: Code Status Discussion Not Compl eted Decision Maker: Provider Rationale: Patient condition does not warra nt discussion Care Teams Community Development Coordinator Relationship Specialty Start Date End Date Allyssa Avila MD [address] [place] [address] PCP - General 02/08/16 An Michaels MD [address] [facility] [address], [address] [place] [address] Sales Compensation Analyst Cardiology 05/05/23 Audra Kurtz MD [address] [facility], [address] [place] [address] Sales Compensation Analyst Electrophysiology 05/03/24
--- OUTSIDE RECORDS SUMMARY | 2024-10-16 16:04 | XMS_ITS | Encounter Summary ---
Author Organization [facility] Address [facility] [place] [address] Care Team Providers Care Crab Backer Name Role Phone Rosi Parks [phone] Source Comments In the event this information is protected by the Federal Confidentiality of Alcohol and Drug AbusePatient Records regulations: The Federal rules restrict any use of the information to criminally investigate or prosecute any alcohol or drug abuse patient.[facility] Encounter Details Date Type Department Care Team (Late st Contact Info) Description 09/26/2024 Results Follow-Up Allergy [address] [place], [place] [id number] Salena Bolton MD [address] [id number] Social History Tobacco Use Types Packs/Day Years Used Date Smoking Tobacco: Never Smokeless Tobacco: Never Area Deprivation Index Answer Date Giuseppe rded National Score (1-100), lower number is lower ri sk 64 09/23/2024 State Score (1-10), lower number is lower risk 4 09/23/2024 Data from: https://www.neighborhoodatlas.medicine.[facility].edu/. Last address used for calculation [address] [address] 09/23/2024 Comments Unknown Sex and Gender Information Value Date Recorded Sex Assigned at Not on file Legal Sex Female 10:52 AM EDT Gender Identity Not on file Sexual Orientation Not on file documented as of this encounter Plan of Treatment Upcoming Encounters Date Type Department Care Team (Late st Contact Info) Description 11/25/2024 11:30 AM EDT [facility] [address] [place], [place] [id number] Salena Bolton MD [address] [place], [place] [id number] 2 month f/u 12/26/2024 1:30 PM EDT Office Visit Dermatology [address] [address] [place] [address] [place], [place] [phone] Rash and nonspecific skin eruption [R21] documented as of this encounter Visit Diagnoses Not on filedocumented in this encounter Care Teams Crab Backer Relationship Specialty Start Date End Date Rosi Parks [address] [place] [address] Neurosurgery 08/08/24 documented as of this encounter
--- OUTSIDE RECORDS SUMMARY | 2024-10-16 16:04 | XMS_ITS | Encounter Summary ---
Author Organization [facility] Address [address] [place] [address] Care Team Providers Care Program Services Assistant Name Role Phone Rosi Parks [phone] Source Comments In the event this information is protected by the Federal Confidentiality of Alcohol and Drug AbusePatient Records regulations: The Federal rules restrict any use of the information to criminally investigate or prosecute any alcohol or drug abuse patient.[facility] Encounter Details Date Type Department Care Team (Late st Contact Info) Description 09/19/2024 Patient [facility] -[address] [place] [address] Oksana Owens RPh At your next appointment, choose [facility]. Social History Tobacco Use Types Packs/Day Years Used Date Smoking Tobacco: Never Assessed Area Deprivation Index Answer Date Giuseppe rded National Score (1-100), lower number is lower ri sk 64 09/23/2024 State Score (1-10), lower number is lower risk 4 09/23/2024 Data from: https://www.neighborhoodatlas.medicine.[facility].edu/. Last address used for calculation [address] [facility] [address] 09/23/2024 Comments Unknown Sex and Gender Information Value Date Recorded Sex Assigned at Not on file Legal Sex Female 10:52 AM EDT Gender Identity Not on file Sexual Orientation Not on file documented as of this encounter Plan of Treatment Upcoming Encounters Date Type Department Care Team (Late st Contact Info) Description 11/25/2024 11:30 AM EDT [facility] All[facility] [address] [place] [address] Salena Bolton MD [address] [place] [address] 2 month f/u 12/26/2024 1:30 PM EDT Office Visit Dermatology [address] [address] [place] [address] [place], [place] [phone] Rash and nonspecific skin eruption [R21] documented as of this encounter Visit Diagnoses Not on filedocumented in this encounter Care Teams Program Services Assistant Relationship Specialty Start Date End Date Rosi Parks [address] [place] [address] Neurosurgery 08/08/24 documented as of this encounter
--- OUTSIDE RECORDS SUMMARY | 2024-10-16 16:04 | XMS_ITS | Clinical Summary ---
Author Organization [facility] Address [id number] [address] [place] [address] Care Team Providers Care Podiatry Professor Name Role Phone Shae Gregory BOX CAR CHECKER-CUSTOMS ENTRY WRITER Primary Care Provider + Allergies No known active allergies Active Problems Problem Noted Date Diagnosed Date Migraine 08/29/2017 TIA (transient ischemic attack) 08/29/2017 Family History Medical History Relation Name Comments Hypertension Father Augustine Hypertension Mother Merna Relation Name Status Comments Father Augustine Mother Merna Alive Social History Tobacco Use Types Packs/Day Years Used Date Smoking Tobacco: Passive Smo ke Exposure - Never Smoker Smokeless Tobacco: Never Alcohol Use Standard Drinks/Week Comments No 0 (1 standard drink = 0.6 oz pur e alcohol) Childcare Answer Date Recorded Childcare Unknown 09/17/2018 Employment Answer Date Recorded Employment Unknown 09/17/2018 Purpose - Life Answer Date Recorded Purpose and direction in life Unknown Comments Unknown Sex and Gender Information Value Date Recorded Sex Assigned at Not on file Legal Sex Female 3:01 PM EDT Gender Identity Not on file Sexual Orientation Not on file Last Filed Vital Signs Vital Sign Reading Time Taken Comments Blood Pressure 121/62 08/29/2017 4:57 PM EDT Pulse 85 08/29/2017 4:57 PM EDT Temperature 37.8 C (100 F) 08/29/2017 4:57 PM EDT Respiratory Rate 18 08/29/2017 4:57 PM EDT Oxygen Saturation 99% 08/29/2017 4:57 PM EDT Inhaled Oxygen Concentration - - Weight 111.5 kg (245 lb 13 oz) 08/28/2017 11:27 PM EDT Height 166 cm (5' 5.35 ) 08/28/2017 11:27 PM EDT Body Mass Index 40.46 08/28/2017 11:27 PM EDT Plan of Treatment Health Maintenance Due Date Last Done Comments Depression Screening 2015 Tobacco Screening 2015 Adult BMI Screening 2021 DTaP,Tdap and Td Vaccines (1 - Tdap) 2022 Pap Smear 01/28/2024 Influenza Vaccine 12/09/2024 Medical Devices Not on file Insurance [place] [employer] [employer] Care Teams Podiatry Professor Relationship Specialty Start Date End Date Shae Gregory, BOX CAR CHECKER-CUSTOMS ENTRY WRITER [address] [place] [address] PCP - General 10/19/16
--- OUTSIDE RECORDS SUMMARY | 2024-10-16 16:04 | XMS_ITS | Encounter Summary ---
Author Organization [facility] Address [facility] [place] [address] Care Team Providers Care Guide Tour Name Role Phone Rosi Parks [phone] Source Comments In the event this information is protected by the Federal Confidentiality of Alcohol and Drug AbusePatient Records regulations: The Federal rules restrict any use of the information to criminally investigate or prosecute any alcohol or drug abuse patient.[facility] Encounter Details Date Type Department Care Team (Late st Contact Info) Description 09/16/2024 [place] [address] Provider, Ccf Important information about your scheduled Allergy and Immunology appointment Social History Tobacco Use Types Packs/Day Years [...] 11:30 AM EDT Distance [facility] Allergy [address] [place] [address] Salena Bolton MD [address] [place] [address] 2 month f/u 12/26/2024 1:30 PM EDT Office Visit Dermatology [address] [address] [place] [address] [place] [address] Rash and nonspecific skin eruption [R21] documented as of this encounter Visit Diagnoses Not on filedocumented in this encounter Care Teams Guide Tour Relationship Specialty Start Date End Date Rosi Parks [address] [place] [address] Neurosurgery 08/08/24 documented as of this encounter
--- OUTSIDE RECORDS SUMMARY | 2024-10-16 16:04 | XMS_ITS | Encounter Summary ---
Author Organization [facility] Address [facility] [place] [address] Care Team Providers Care Development Scientist Name Role Phone Rosi Parks [phone] Source Comments In the event this information is protected by the Federal Confidentiality of Alcohol and Drug AbusePatient Records regulations: The Federal rules restrict any use of the information to criminally investigate or prosecute any alcohol or drug abuse patient.[facility] Encounter Details Date Type Department Care Team (Late st Contact Info) Description 08/09/2024 [place] [address] Provider, Ccf Important information about your scheduled [...] 11:30 AM EDT Distance [facility] Allergy [address] [place], [place] [phone] Salena Bolton MD [address] [place] [address] 2 month f/u 12/26/2024 1:30 PM EDT Office Visit Dermatology [address] [address] [place] [address] [place] [address] Rash and nonspecific skin eruption [R21] documented as of this encounter Visit Diagnoses Not on filedocumented in this encounter Care Teams Development Scientist Relationship Specialty Start Date End Date Rosi Parks [address] [place] [address] Neurosurgery 08/08/24 documented as of this encounter
--- OUTSIDE RECORDS SUMMARY | 2024-10-16 16:04 | XMS_ITS | Encounter Summary ---
Author Organization [facility] Address [address] [place] [address] Phone Care Team Providers Care Opal Miner Name Role Phone Allyssa Avila MD Primary Care Provider [phone] Audra Kurtz MD Unavailable An Michaels MD Unavailable Audra Kurtz MD Unavailable Encounter Details Date Type Department Care Team ([facility] st Contact Info) Description 03/08/2023 Transcribe Orders [facility] [address] [facility] [address] [place] [address] Audra Kurtz MD [address] [facility] Medical Office Bldg, [address] [place] [address] Social History Tobacco Use Types Packs/Day Years Used Date Smoking Tobacco: Never Smokeless Tobacco: Never Alcohol Use Standard Drinks/Week Comments Never 0 (1 standard drink = 0.6 oz pur e alcohol) PHQ-2 Answer Date Recorded Patient Health Questionnaire-2 Score 0 03/06/2023 Comments Unknown Sex and Gender Information Value Date Recorded Sex Assigned at Not on file Legal Sex Female 1:55 PM EST Gender Identity Not on file Sexual Orientation Not on file COVID-19 Exposure Response Date Recorded In the last 10 days, have yo u been in contact with someone who was confirmed or suspected to have Coronavirus/COVID-19? No / Unsure 03/06/2023 11:30 AM EST documented as of this encounter Plan of Treatment Upcoming Encounters Date Type Department Care Team (Late st Contact Info) Description 10/29/2024 1:00 PM EDT Appointment [facility] [address] [place] [facility] [place] [address] 10/29/2024 1:40 PM EDT Office Visit [facility] [address] [facility] [address] [place] [address] Audra Kurtz MD [address] [facility] Medical Office [facility], [address] [place] [address] documented as of this encounter Visit Diagnoses Not on filedocumented in this encounter Additional Health Concerns Assessment Noted Time A fall risk assessment has been complete d for the patient 03/06/2023 12:20 PM EST documented as of this encounter Care Teams Opal Miner Relationship Specialty Start Date End Date Allyssa Avila MD [address] [place] [place] [address] PCP - General 02/08/16 Audra Kurtz MD [address] [place] [address] Consulting Physician Electrophysiology 05/04/23 5 An Michaels MD [address] [facility], [address] [place] [address] Press Machine Operator Cardiology 05/05/23 Audra Kurtz MD [address] [facility] Office [facility], [address] [place] [address] Press Machine Operator Electrophysiology 05/03/24 documented as of this encounter
--- OUTSIDE RECORDS SUMMARY | 2024-10-16 16:04 | XMS_ITS | Patient Health Record ---
Author Organization [facility] Address [address] [place] [address] Support Name Relationship Address Phone TATUM KNOTT Emergency Contact [address] [place] [address] TATUM KNOTT Guarantor Unknown [phone] Allergies No Known Allergies Reason For Referral No Information Medications Medication SIG (Take, Route, Frequency, Duration) Notes Start Date End Date Status Metoprolol Succinate ER 50 MG 1 tablet Orally once a day Active Abilify 15 MG 1 tablet Orally Once a day; Duration: 30 day(s) 07/30/2020 Not-Taking Geodon 20 MG 1 capsule with food Orally once a day; Duration: 30 day(s) 08/27/2020 Not-Taking amLODIPine Besylate 5 MG 1 tablet Orally once a day Active Latuda 40 MG 1 tablet with food Orally Once a day; Duration: 30 day(s) Not-Taking Vraylar 3 MG 1 capsule Orally Onc e a day; Duration: 30 day(s) Not-Taking Rexulti 2 MG 1 tablet Orally Once a day; Duration: 30 day(s) Not-Taking Meloxicam 10 MG 1 capsule Orally Onc e a day Not-Taking Metoprolol Succinate ER 25 MG 1 tablet Orally once a day Not-Taking lamoTRIgine 200 mg TAKE ONE TABLET BY MOUTH ONCE DAILY FOR 30 DAYS; Duration: 30 Active busPIRone HCl 7.5 MG 2 tablets at bedtim e Orally daily; Duration: 30 days Not-Taking hydrOXYzine HCl 25 MG 1 tablet as needed Orally every 8 hrs; Duration: 30 day(s) 08/11/2021 Active risperiDONE 1 MG 1 tablet Orally Once a day; Duration: 30 day(s) 09/01/2020 Not-Taking Social History Tobacco Use: Social History Observation Description Date Details (start date - stop date) Never Smoker NA - NA Tobacco Screen: Question Answer Notes Are you a: never smoker Alcohol Screening: Question Answer Notes Did you have a drink containing alcohol in the p ast year? No Points 0 Interpretation Negative Depression Screening (PHQ-9): Question Answer Notes Little interest or pleasure in doing things Several days Feeling down, depressed, or hopeless More than h usp the days Trouble falling or staying a sleep, or sleeping too much Nearly every day Feeling tired or having little energy More than half the days Poor appetite or overeating Nearly every day Feeling bad about yourself-o r that you are a failure or have let yourself or your family down Nearly every day Trouble concentrating on thi ngs, such as reading the newspaper or watching television Nearly every day Moving or speaking so slowly that other people could have noticed. Or the opposite being so fidgety or restless that you have been moving around a lot more than usual Nearly every day Thoughts that you would be b leti off , or of hurting yourself in some way Several days(Consider Suicide Assessment Risk) Total Score 21 Intepretation Severe Depression Problems Problem Type SNOMED Code ICD Code Onset Dates Problem Status W/U Status Risk Notes Problem Anxiety (41135874) Anxiety (F41.9) Active confirmed Problem Body mass index 40+ - severely obese (294058685) BMI 45.0-49.9, adult (Z68.42) Active confirmed Problem Body mass index 40+ - morbidly obese (706215047) BMI 40.0-44.9, adult (Z68.41) Active confirmed Problem Mixed bipolar affective disorder, moderate (629988795) Bipolar 1 disorder, mixed, moderate (F31.62) Active confirmed Problem Bipolar disorder (50438261) Bipolar depression (F31.9) Active confirmed Plan Of Treatment No Information Insurance Providers Payer Name Payer Address Payer Phone Subscriber Number Group Number Insured Name Patient Relationship to Insured Coverage Start Date Coverage End Date [facility] -[facility] [address] [place] [address] [id number] ARABELLA KNOTT Self - patient is the insured 2 [employer] MED[employer] after [employer] [address] [place] [address] [id number] ARABELLA KNOTT Self - patient is the insured 1 Medical (General) History Medical History History ICD Code DEPRESSION ACID REFLUX HYPERTENSION Surgical History Surgery Date(Month/Year) 7 SETS OF EAR TUBES TONSILADENECTOMY Hospitalization History Reason Date(Month/Year) THOUGHT SHE HAD A MINI STROKE/POSSIBLE T RAVELING BLOOD CLOT 2017
--- OUTSIDE RECORDS SUMMARY | 2024-10-16 16:04 | XMS_ITS | Clinical Summary ---
Author Organization [facility] Healthcare Address [address] [place] [address] Care Team Providers Care Gem Cutter Name Role Phone Allyssa Avila MD Primary Care Provider [phone] Allergies Active Allergy Reactions Criticality Noted Date Comments Cariprazine Anaphylaxis High 05/14/2023 Medications acebutolol (Sectral) 400 MG capsule Oral for 90 Days Active MAGnesium-Oxide 400 (240 Mg) MG tablet Take 400 mg by mouth in the morning. 12/22/2022 Active midodrine (Proamatine) 2.5 MG tablet Take 2.5 mg by mouth in the morning and 2.5 mg in the evening and 2.5 mg before bedtime. Active Social History Tobacco Use Types Packs/Day Years Used Date Smoking Tobacco: Never Smokeless Tobacco: Never Tobacco Cessation:Counseling Given: Not Answered Alcohol Use Standard Drinks/Week Comments Never 0 (1 standard drink = 0.6 oz pur e alcohol) Comments Unknown Sex and Gender Information Value Date Recorded Sex Assigned at Not on file Legal Sex Female 7:14 PM EDT Gender Identity Not on file Sexual Orientation Not on file Last Filed Vital Signs Vital Sign Reading Time Taken Comments Blood Pressure 122/80 01/15/2024 4:45 PM EDT Pulse 94 01/15/2024 4:45 PM EDT Temperature 36.3 C (97.4 F) 01/15/2024 4:45 PM EDT Respiratory Rate 18 02/28/2023 7:01 PM EST Oxygen Saturation 98% 01/15/2024 4:45 PM EDT Inhaled Oxygen Concentration - - Weight 132 kg (292 lb 1.8 oz) 01/15/2024 4:45 PM EDT Height 165.1 cm (5' 5 ) 11/21/2020 12:00 PM EDT Body Mass Index - - Plan of Treatment Not on file Insurance [employer] Care Teams Gem Cutter Relationship Specialty Start Date End Date Allyssa Avila MD PCP - General Family Medicine 02/28/23
== END 2024-10-16 16:01 | disposition home or self-care (01) ==
LOC: RAD 16:01
PROVIDERS: PCP Family Medicine; Visit Provider Family Medicine
DX: M54.50 Low back pain, unspecified (principal); M51.369 Other intervertebral disc degeneration, lumbar region without mention of lumbar back pain or lower extremity pain
CPT/HCPCS: 72100